=== PATIENT | male | born 1940 | race Caucasian/White ===

== ENCOUNTER 2021-10-23 08:56 | Outpatient (REF) | payer SELFPAY | END 2021-10-23 08:57 | disposition home or self-care (01) | LOC: HO.MMNH1L 08:56 | PROVIDERS: Visit Provider Family Medicine | DX: Z13.89 Encounter for screening for other disorder (principal) ==

== ENCOUNTER 2021-10-25 03:52 | Inpatient (IN) | payer MEDICARE, SELFPAY ==
[2021-10-25] VITALS (14 sets, daily range): BP systolic 115–145; BP diastolic 45–89; PULSE 60–110; RESP 20–34; TEMP 36.6; O2SAT 87–97; BMI 24.6
--- NOTE | ~2021-10-25 | XR_ITS ---
EXAMINATION: XR CHEST CLINICAL INFORMATION: Shortness of breath. COMPARISON: None TECHNIQUE: 2 AP frontal radiographs of the chest. FINDINGS: A right pectoral tunneled internal jugular catheter terminates at the cavoatrial junction. The cardiac silhouette is normal in size. Moderate aortic calcific atherosclerosis is noted. Moderate blunting of the right costophrenic sulcus is visualized along with right base airspace opacification partially obscuring visualization of the right cardiac margin. Bilateral dense pleural calcifications are present. No pneumothoraces identified. XR/XR chest 1V IMPRESSION: *Right pectoral tunneled internal jugular catheter terminating at the cavoatrial junction. *Small right pleural effusion and moderate right base atelectasis and/or consolidation. Findings could represent pneumonia. 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
--- NOTE | ~2021-10-25 | XR_ITS ---
EXAMINATION: XR CHEST CLINICAL INFORMATION: Short of breath COMPARISON: 10/30/2021 TECHNIQUE: Frontal view of the chest was obtained. FINDINGS: Right chest wall port terminates near the cavoatrial junction. The lungs are well expanded. Numerous calcified pleural plaques are again noted. Moderate right pleural effusion is similar to prior given differences in technique. Associated airspace opacity. No edema. No pneumothorax. The cardiomediastinal silhouette is unchanged, with a calcified aorta. XR/XR chest 1V IMPRESSION: Chronic bilateral calcified pleural plaques. Similar moderate right pleural effusion with airspace opacity which could be atelectasis or pneumonia.
--- NOTE | ~2021-10-25 | XR_ITS ---
EXAMINATION: XR CHEST CLINICAL INFORMATION: Evaluate pneumonia. COMPARISON: 10/31/2021. TECHNIQUE: AP view of the chest was obtained. FINDINGS: Unchanged prominence of the cardiomediastinal silhouette. Right-sided chest port terminates at the level of the cavoatrial junction. EKG wires overlie the chest. Redemonstration of bilateral calcified pleural plaques. Again noted moderate size right pleural effusion with associated right mid and lower lobe airspace opacities, not significantly changed. No pneumothorax. No discrete acute osseous abnormalities. XR/XR chest 1V IMPRESSION: Overall, examination has not significantly changed when compared to 10/31/2021 with redemonstration of a moderate-sized right pleural effusion with associated right lung opacities. Background of multifocal calcified pleural plaques.
--- NOTE | ~2021-10-25 | XR_ITS ---
EXAMINATION: XR CHEST CLINICAL INFORMATION: Follow-up, shortness of breath COMPARISON: 10/25/2021 TECHNIQUE: Frontal view of the chest was obtained. FINDINGS: Superimposed on multiple bilateral likely chronic calcified pleural plaques, there are worsening bilateral airspace opacities and increasing now moderate right pleural effusion. Pulmonary vascularity is increasingly prominent and indistinct. No pneumothorax seen. Right internal jugular approach chest port is seen with catheter tip in the cavoatrial junction. Cardiac silhouette remains enlarged. Degenerative changes of the shoulders and spine. Calcifications adjacent the right humeral head suggests calcific tendinitis. XR/XR chest 1V IMPRESSION: Worsening bilateral airspace opacities with increasing now moderate right pleural effusion with prominent, indistinct pulmonary vascularity. These findings could reflect worsening multifocal pneumonia although congestive heart failure could give a similar appearance. 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
--- NOTE | 2021-10-25 03:54 | ECG_ITS ---
Test Reason : SOB Blood Pressure : / mmHG Vent. Rate : 087 BPM Atrial Rate : 089 BPM P-R Int : 200 ms QRS Dur : 124 ms QT Int : 400 ms P-R-T Axes : 033 010 241 degrees QTc Int : 481 ms Poor data quality Undetermined rhythm with Premature ventricular complexes Nonspecific ST abnormality Abnormal ECG Referred By: Generic ED Physician Electronically Signed By:IRVIN PARIKH MD
[2021-10-25 04:17] LABS: Basophils Percent Auto 0.1 % (0-2); Eosinophils Percent Auto 0.1 % (0-4); Hematocrit 31.1 % (42.0-52.0); Imm Gran Abs Auto 0.19 X10*3/uL (0.00-0.03); Lymphocytes Absolute Auto 0.4 X10*3/uL (1.2-4.9); Lymphocytes Percent Auto 2.3 % (20-40); MANUAL DIFF FLAG SCAN; Mean Corpuscular HGB Conc 32.2 g/dl (31.0-36.0); Mean Corpuscular Hemoglobin 29.1 pg (27.0-33.0); Mean Corpuscular Volume 90.4 fL (80.0-98.0); Mean Platelet Volume 11.5 fL (9.4-12.4); Monocytes Percent Auto 4.9 % (2-11); Neutrophils Absolute Auto 17.6 x10*3/uL (2.0-8.3); Neutrophils Percent Auto 91.6 % (45-73); Platelet Count 112 X10*3/uL (160-400); Red Blood Count 3.44 X10*6/uL (4.60-5.80); Red Cell Distribution Width 14.2 % (11.0-16.0); SCAN SMEAR FLAG 1; White Blood Count 19.2 X10*3/uL (4.8-10.8)
[2021-10-25 04:27] LABS: Influenza A Negative (Negative); Influenza B2 Negative (Negative)
[2021-10-25 04:27] LABS: Lactic Acid 0.6 mmol/L (0.5-2.0)
[2021-10-25 04:28] LABS: COVID-19 Test Negative (Negative); IDNOW Serial# 55D5AD1C
[2021-10-25 04:37] LABS: SLIDE REVIEW VERIFIED
[2021-10-25 04:38] LABS: B Type Natriuretic Peptide 810 pg/mL (<100)
[2021-10-25 04:39] LABS: Troponin-I High Sensitivity 174.8 ng/L (<3.5-35.0)
[2021-10-25 04:40] LABS: Alanine Aminotransferase 77 U/L (0-40); Albumin Level 3.4 g/dL (3.5-5.0); Alkaline Phosphatase 252 U/L (39-117); Anion Gap 15 (12-20); Aspartate Amino Transferase 66 U/L (5-37); Bilirubin Direct 0.3 mg/dL (0.0-0.5); Bilirubin Total 0.6 mg/dL (0.0-1.0); Blood Urea Nitrogen 58 mg/dL (9-16); Calcium 8.1 mg/dL (8.4-10.2); Carbon Dioxide 28 mmol/L (22-29); Chloride 100 mmol/L (96-108); Creatinine Clr Calc Pharmacy 23.2; Estimated Glomerular Filt Rate 24; Glucose Random 123 mg/dL (60-115); Potassium 3.6 mmol/L (3.3-5.1); Sodium 139 mmol/L (135-145); Total Protein 6.2 g/dL (6.5-8.0)
--- NOTE | 2021-10-25 04:48 | PC.NURSE ---
Pt from [facility] Pt tolerating oxymask, 15 L. O2 at 91%
[2021-10-25] MEDS: Furosemide 40 MG/4 ML VIAL IVPUSH ×2 (04:58→18:51)
[2021-10-25] MEDS: Piperacillin Sodium/Tazobactam 4.5 GM in 0.9 % Sodium Chloride 100 ML IV (04:58)
--- NOTE | 2021-10-25 05:07 | ED_ITS ---
HPI - SOB/Dyspnea General Chief Complaint: Dyspnea Stated Complaint: difficulty breathing Time Seen by Provider: 10/25/21 04:03 Mode of arrival: EMS Limitations: other ( patient speaking in 1-2 word sentences secondary to shortness of breath) History of Present Illness HPI Narrative: 81-year-old man who was sent in from his [facility]dc facility for evaluation of shortness of breath. The patient is speaking in short sentences and it is difficult to get a history from him. According to the paramedics the staff at [facility] found the patient off his oxygen ( normally is on 3 L). The patient appeared to be short of breath. When the paramedics arrived the patient's O2 saturation was 60% on 3 L via nasal cannula. They placed him on a non-rebreather mask at 10 liters/minute and his O2 saturation came up to 88%. The patient has a history of COPD and cancer of the right bronchus/lung. On presentation to the emergency department, on 100% non-rebreather mask the patient's O2 saturation was 86%, he was placed on an OxyMask at 15 L and his O2 saturation came up to 90%. the patient is a DNR DNI, can use noninvasive respiratory support Related Data Allergies Allergy/AdvReac Type Severity Reaction Status Date / Time No Known Allergies Allergy Verified 10/25/21 04:04 Review of Systems Review of Systems: Yes Unobtainable due to mental status [facility] Past Medical History [facility] Narrative: past medical history: Obstructive and reflux uropathy, malignant neoplasm of the lung, systolic congestive heart failure, acute kidney failure, diabetes mellitus, COPD, urinary tract infection, hematuria, myocardial infarction, hypoxemia, dysphagia. Social history: Patient is a resident at [facility] Social History Social History Advance Directives: No Physical Exam Vital Signs: Vital Signs: Last Vital Signs Temp 98 F 10/25/21 03:55 Pulse 78 10/25/21 04:59 Resp 20 10/25/21 05:52 BP 125/45 L 10/25/21 04:59 Pulse Ox 91 L 10/25/21 04:59 O2 Del Method 10/25/21 04:59 O2 Flow Rate 15 10/25/21 04:59 Oxygen Flow Rate 10 10/25/21 03:55 BMI result Body Mass Index 24.6 Const: Other: awake, alert male patient, appears to be in respiratory distress, using accessory muscles to breathe HEENT: Head: Yes normal to inspection, Yes normocephalic and Yes atraumatic Ears: external ears normal General nose exam: Normal external nose present Face and sinus: Yes normal facial exam Mouth: Normal oral and palatal mucosa present Throat: Yes posterior oropharynx normal Eyes: General: appearance normal, both eyes and all related structures Pupils: Equal, round and reactive pupils present Neck: Neck: Yes normal visual inspection, Yes no lymphadenopathy, Yes trachea midline and Yes supple Chest: Chest palpation & inspection: normal inspection of the chest and normal palpation of entire chest wall Resp: Other: patient is using accessory muscles to breathe, breath sounds were symmetric b ilaterally, he has diffuse rhonchi, and rales, there is no wheezing. Cardio: Rate: regular rate Rhythm: regular rhythm Heart sounds: S1 normal heart sound present, S2 normal heart sound present and no murmurs GI: Inspection: Yes normal to inspection Palpation (GI): Soft to palpation, nontender and no guarding Auscultation: normal bowel sounds : General: Yes no CVA tenderness Back/Spine/Pelvis: Back: no CVA tenderness Skin: General skin exam: no rashes or lesions noted Neuro: Cranial nerves: Yes CN's II-XII intact bilaterally and Yes Equal, round and reactive pupils present Cognition (Neuro): normal cognition Motor exam (neuro): 5/5 motor strength present throughout Extrem: Other: Trace to 1+ pitting edema bilaterally symmetric Psych: Appearance: grossly normal Affect: normal affect Attitude: cooperative Course Course Course Narrative: 81-year-old male who was sent to the emergency department from his fdc facility for evaluation of shortness of breath and hypoxia. according to the paramedics, the patient normally is on 2-3 L of oxygen via nasal cannula and he was off his oxygen and had an O2 saturation 60%. Patient was placed on a 100% non-rebreather mask with improvement of his O2 saturation to 88%. On presentation, the patient did appear to be in respiratory distress and speaking 1-2 word sentences. Lung exam did reveal diffuse rhonchi and rales. The patient was placed initially on an OxyMask and then on high-flow oxygen with improvement his O2 saturation to 90%. 0558: Laboratory evaluation: WBC elevated 19,000. BUN creatinine elevated 54 and 2.57. BNP elevated 810. AST, ALT, and alk phos elevated at 66, 77 and 252. Troponin was elevated at 174.8. lactic acid was normal at 0.6. Radiology evaluation: Chest x-ray was interpreted as follows by the radiologist: *Right pectoral tunneled internal jugular catheter terminating at the cavoatrial junction. *Small right pleural effusion and moderate right base atelectasis and/or consolidation. Findings could represent pneumonia. 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 Patient was ordered to get Lasix 40 mg IV and Zosyn 4.5 g IV. Will repeat the patient's troponin at 07:00 hours. I will discuss the patient's presentation with the covering hospitalist. 0609: I did discuss the patient's presentation over tiger text with Dr. Rich and the patient will be admitted to the hospital service for further treatment. MDM - SOB/Dyspnea Lab Data Result diagrams: 10/25/21 04:07 10/25/21 04:07 Labs: Lab Results 10/25/21 10/25/21 10/25/21 Range/Units 04:06 04:06 04:07 WBC 19.2 H (4.8-10.8) X10*3/uL RBC 3.44 L (4.60-5.80) X10*6/uL Hgb 10.0 L (14.0-18.0) g/dl Hct 31.1 L (42.0-52.0) % MCV 90.4 (80.0-98.0) fL MCH 29.1 (27.0-33.0) pg MCHC 32.2 (31.0-36.0) g/dl RDW 14.2 (11.0-16.0) % Plt Count 112 L (160-400) X10*3/uL MPV 11.5 (9.4-12.4) fL Immature Gran % (Auto) 1.0 H (0.0-0.4) % Neut % (Auto) 91.6 H (45-73) % Lymph % (Auto) 2.3 L (20-40) % [place] % (Auto) 4.9 (2-11) % Eos % (Auto) 0.1 (0-4) % Baso % (Auto) 0.1 (0-2) % Lymph # (Auto) 0.4 L (1.2-4.9) X10*3/uL [place] # (Auto) 1.0 (0.1-1.2) X10*3/uL Eos # (Auto) 0.0 (0.0-0.4) X10*3/uL Baso # (Auto) 0.0 (0.0-0.2) X10*3/uL Abs Immat Gran (auto) 0.19 H (0.00-0.03) X10*3/uL Absolute Neuts (auto) 17.6 H (2.0-8.3) x10*3/uL Absolute Nucleated RBC 0.000 (0.0-0.012) X10*3/uL Nucleated RBC % (auto) 0.0 (0.0-0.2) /100WBC Smear Tech's Comments VERIFIED Sodium (135-145) mmol/L Potassium (3.3-5.1) mmol/L Chloride (96-108) mmol/L Carbon Dioxide (22-29) mmol/L Anion Gap (12-20) BUN (9-16) mg/dL Creatinine (0.5-1.4) mg/dL Estim Creat Clear Calc Estimated GFR Random Glucose (60-115) mg/dL Lactic Acid (0.5-2.0) mmol/L Calcium (8.4-10.2) mg/dL Total Bilirubin (0.0-1.0) mg/dL Direct Bilirubin (0.0-0.5) mg/dL AST (5-37) U/L ALT (0-40) U/L Alkaline Phosphatase (39-117) U/L Troponin I High Sens (<3.5-35.0) ng/L B-Natriuretic Peptide (<100) pg/mL Total Protein (6.5-8.0) g/dL Albumin (3.5-5.0) g/dL COVID-19 (BENEDICT) Negative (Negative) COVID-19 Clin Com See Note Influenza Type A (WENDY) Negative (Negative) Influenza Type B (WENDY) Negative (Negative) Influenza A & B Note See Note 10/25/21 10/25/21 10/25/21 Range/Units 04:07 04:07 04:07 WBC (4.8-10.8) X10*3/uL RBC (4.60-5.80) X10*6/uL Hgb (14.0-18.0) g/dl Hct (42.0-52.0) % MCV (80.0-98.0) fL MCH (27.0-33.0) pg MCHC (31.0-36.0) g/dl RDW (11.0-16.0) % Plt Count (160-400) X10*3/uL MPV (9.4-12.4) fL Immature Gran % (Auto) (0.0-0.4) % Neut % (Auto) (45-73) % Lymph % (Auto) (20-40) % [place] % (Auto) (2-11) % Eos % (Auto) (0-4) % Baso % (Auto) (0-2) % Lymph # (Auto) (1.2-4.9) X10*3/uL [place] # (Auto) (0.1-1.2) X10*3/uL Eos # (Auto) (0.0-0.4) X10*3/uL Baso # (Auto) (0.0-0.2) X10*3/uL Abs Immat Gran (auto) (0.00-0.03) X10*3/uL Absolute Neuts (auto) (2.0-8.3) x10*3/uL Absolute Nucleated RBC (0.0-0.012) X10*3/uL Nucleated RBC % (auto) (0.0-0.2) /100WBC Smear Tech's Comments Sodium 139 (135-145) mmol/L Potassium 3.6 (3.3-5.1) mmol/L Chloride 100 (96-108) mmol/L Carbon Dioxide 28 (22-29) mmol/L Anion Gap 15 (12-20) BUN 58 H (9-16) mg/dL Creatinine 2.57 H (0.5-1.4) mg/dL Estim Creat Clear Calc 23.2 Estimated GFR 24 Random Glucose 123 H (60-115) mg/dL Lactic Acid 0.6 (0.5-2.0) mmol/L Calcium 8.1 L (8.4-10.2) mg/dL Total Bilirubin 0.6 (0.0-1.0) mg/dL Direct Bilirubin 0.3 (0.0-0.5) mg/dL AST 66 H (5-37) U/L ALT 77 H (0-40) U/L Alkaline Phosphatase 252 H D (39-117) U/L Troponin I High Sens 174.8 H* (<3.5-35.0) ng/L B-Natriuretic Peptide 810 H (<100) pg/mL Total Protein 6.2 L (6.5-8.0) g/dL Albumin 3.4 L (3.5-5.0) g/dL COVID-19 (BENEDICT) (Negative) COVID-19 Clin Com Influenza Type A (WENDY) (Negative) Influenza Type B (WENDY) (Negative) Influenza A & B Note
[2021-10-25 07:36] LABS: Appearance Urine CLOUDY; Color Urine YELLOW; Glucose Urine UA NEG (NEG); Leukocyte Esterase Urine 3+ (NEG); Nitrite Urine POS (NEG); PH 5.5 (5.0-8.0); Specific Gravity - Urine 1.025 (1.005-1.025); UACC Culture Trigger YES; Urine Blood 3+ (NEG); Urine Ketones NEG (NEG); Urine Protein 2+ MG/DL (NEG-TRACE)
[2021-10-25 07:44] LABS: Troponin-I High Sensitivity 204.1 ng/L (<3.5-35.0)
[2021-10-25 07:55] LABS: Bacteria Urine 3+ /LPF; RBC Urine 30-49 /HPF (0)
[2021-10-25 07:56] LABS: Granular Casts Urine 0-2 /LPF; Hyaline Casts Urine 0-2 /LPF
--- NOTE | 2021-10-25 08:29 | PC.NURSE ---
PT PLACED ON CPAP
--- NOTE | 2021-10-25 09:00 | PHA.MEDREC ---
Pharmacy Consult ? Medication Reconciliation Pharmacy has completed the medication reconciliation. Patient came from [facility] with a medication list. Nicole Coyne, mDD
--- NOTE | 2021-10-25 10:34 | PC.NURSE ---
remains awake and alert. he continues on cpap now at 50%O2
--- NOTE | 2021-10-25 11:43 | PC.NURSE ---
patient sleeping, wakes to verbal stimulus, denied pain/discomfort, cpap intact , vss, groundwater monitoring technician intact, will continue to monitor
--- NOTE | 2021-10-25 12:44 | PM.IMHP ---
History of Present Illness Date of Service: 10/25/21 Chief Complaint: sob history limited due to patient's sob. 81M with pmh including chronic hypoxic respiratory failure on 3 L home O2 due to history of COPD and chronic systolic CHF as well as recent diagnosis of squamous cell lung cancer, presented with shortness of breath. Patient was residing at [facility] and was complaining of shortness of breath. Was found to be severely hypoxic on his 3 L home O2 by paramedics patient was tachypneic and saturating 60% he was placed on a non-rebreather and saturation improved to 88%. In ED chest x-ray showed bilateral pleural calcifications suspicious for asbestos exposure, small right pleural effusion and moderate right basilar atelectasis and/or consolidation. White blood cell count was elevated at 19. 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, stage I Urinary retention Family History Mother Breast cancer in situ Social History Alcohol intake: never Patient Tobacco Use Status: Former Tobacco user Use of substances other than those prescribed or required for medical reasons: No Advance Directives: No Meds Allergies Allergy/AdvReac Type Severity Reaction Status Date / Time No Known Allergies Allergy Verified 10/25/21 04:04 Active Medications: Current Medications Acetaminophen (Acetaminophen 325 Mg Tablet) 650 mg PO Q6H PRN PRN Reason: Pain, Mild (Pain Scale 1-3) Albuterol Sulfate (Albuterol Sulfate 90 Mcg 8 Gm Inhaler) 1 puff INHALE Q4H PRN PRN Reason: Wheezing Albuterol/Ipratropium (Albuterol/Iprat 2.5/0.5mg 3 Ml Ampul.Neb) 3 ml INHALE RQ4H PRN PRN Reason: sob Atorvastatin Calcium (Atorvastatin Calcium 10 Mg Tablet) 10 mg PO BEDTIME YIN Carvedilol (Carvedilol 6.25 Mg Tablet) 6.25 mg PO BID [facility]; Protocol Dextrose (Dextrose 50 % 25 Gm/50 Ml Syringe) 25 gm IVPUSH Q15M PRN; Protocol PRN Reason: per Hypoglycemia Standing Ord. Furosemide (Furosemide 40 Mg/4 Ml Vial) 40 mg IVPUSH BID@0900,1800 [facility]; Protocol Glucose (Glucose Gel 15 Gm Gel..Gram.) 15 gm PO Q15M PRN; Protocol PRN Reason: per Hypoglycemia Standing Ord. Heparin Sodium (Porcine) (Heparin Sodium,Porcine 5,000 Unit/Ml Vial) 5,000 unit SUBCUT Q8H [facility] Ceftriaxone Sodium 1 gm/ (Sodium Chloride) 50 mls @ 100 mls/hr IV Q24H [facility] Insulin Human Lispro (Insulin Lispro 100 Unit/Ml 3 Ml Vial) 0 unit SUBCUT QIDACHS [facility]; Protocol Melatonin (Melatonin 3 Mg Tablet) 6 mg PO BEDTIME [facility] Methylprednisolone Sodium Succinate (Methylprednisolone Sod Succ 40 Mg/Ml Vial) 40 mg IVPUSH Q12H [facility] Multivitamins/Vitamin C (Multivitamin Tablet) 1 tab PO DAILY [facility] Omeprazole (Omeprazole 20 Mg Capsule.Dr) 20 mg PO DAILY@0630 [facility] Ondansetron HCl (Ondansetron Odt 4 Mg Tab.Rapdis) 4 mg TRANSLINGU Q8H PRN PRN Reason: Nausea Sodium Chloride (0.9 % Sodium Chloride Flush 3 Ml Syringe) 3 ml IVFLUSH QSHIFT [facility] Tamsulosin HCl (Tamsulosin Hcl 0.4 Mg Capsule) 0.8 mg PO BEDTIME [facility] Home Medications Medication Instructions Recorded Confirmed Last Taken Type albuterol sulfate 90 mcg/actuation 1 puff inhalation Q4H PRN Wheezing 10/25/21 10/25/21 Unknown History aerosol inhaler amlodipine 5 mg tablet 1 tab PO DAILY 10/25/21 10/25/21 Unknown History carvedilol 6.25 mg tablet 1 tab PO BID 10/25/21 10/25/21 Unknown History clonidine HCl 0.1 mg tablet 1 tab PO DAILY 10/25/21 10/25/21 Unknown History furosemide 20 mg tablet 20 mg PO DAILY 10/25/21 10/25/21 Unknown History insulin lispro 100 unit/mL 1 sliding scale dose subcut 10/25/21 10/25/21 Unknown History subcutaneous solution (Humalog USEASDIRECTD U-100 Insulin) isosorbide mononitrate 30 mg 1 tab PO DAILY 10/25/21 10/25/21 Unknown History tablet,extended release 24 hr melatonin 3 mg tablet 6 mg PO BEDTIME 10/25/21 10/25/21 Unknown History multivitamin 1 tab PO DAILY 10/25/21 10/25/21 Unknown History omeprazole 20 mg tablet,delayed 20 mg PO DAILY 10/25/21 10/25/21 Unknown History release ondansetron HCl 4 mg tablet 4 mg PO Q8H PRN Nausea 10/25/21 10/25/21 Unknown History simvastatin 20 mg tablet 20 mg PO BEDTIME 10/25/21 10/25/21 Unknown History tamsulosin 0.4 mg capsule 0.8 mg PO BEDTIME 10/25/21 10/25/21 Unknown History Physical Exam Vital Signs and Narrative: Vital Signs: Last Vital Signs Temp 98 F 10/25/21 03:55 Pulse 60 10/25/21 11:41 Resp 25 H 10/25/21 11:41 BP 118/76 10/25/21 11:41 Pulse Ox 94 10/25/21 11:41 O2 Del Method 10/25/21 11:41 O2 Flow Rate 55 10/25/21 07:28 Oxygen Flow Rate 10 10/25/21 03:55 BMI result Body Mass Index 24.6 General: ill appearing, dyspneic HEENT: atraumatic Neck: normal to visual inspection CVS: S1, S2, RRR Resp: rhonchi bilateral Chest: non tender GI: soft, non tender, non distended : no CVA tenderness Skin: no rashes Extremities: no edema Neuro: grossly intact Psych: cooperative Results Labs CBC and Chem 7: 10/25/21 04:07 10/25/21 04:07 Labs: Laboratory Results - last 24 hr 10/25/21 10/25/21 10/25/21 04:06 04:06 04:07 MCV 90.4 MCH 29.1 MCHC 32.2 RDW 14.2 Plt Count 112 L MPV 11.5 Immature Gran % (Auto) 1.0 H Neut % (Auto) 91.6 H Lymph % (Auto) 2.3 L [place] % (Auto) 4.9 Eos % (Auto) 0.1 Baso % (Auto) 0.1 Lymph # (Auto) 0.4 L [place] # (Auto) 1.0 Eos # (Auto) 0.0 Baso # (Auto) 0.0 Abs Immat Gran (auto) 0.19 H Absolute Neuts (auto) 17.6 H Absolute Nucleated RBC 0.000 Nucleated RBC % (auto) 0.0 Smear Tech's Comments VERIFIED Anion Gap Estim Creat Clear Calc Estimated GFR Random Glucose Lactic Acid Calcium Total Bilirubin Direct Bilirubin AST ALT Alkaline Phosphatase Troponin I High Sens B-Natriuretic Peptide Total Protein Albumin Urine Color Urine Appearance Urine pH Ur Specific [place] Urine Protein Urine Glucose (UA) Urine Ketones Urine Blood Urine Nitrite Ur Leukocyte Esterase Urine RBC Urine WBC Ur Squamous Epith Cells Urine Bacteria Hyaline Casts Granular Casts COVID-19 (BENEDICT) Negative COVID-19 Clin Com See Note Influenza Type A (WENDY) Negative Influenza Type B (WENDY) Negative Influenza A & B Note See Note 10/25/21 10/25/21 10/25/21 04:07 04:07 04:07 MCV MCH MCHC RDW Plt Count MPV Immature Gran % (Auto) Neut % (Auto) Lymph % (Auto) [place] % (Auto) Eos % (Auto) Baso % (Auto) Lymph # (Auto) [place] # (Auto) Eos # (Auto) Baso # (Auto) Abs Immat Gran (auto) Absolute Neuts (auto) Absolute Nucleated RBC Nucleated RBC % (auto) Smear Tech's Comments Anion Gap 15 Estim Creat Clear Calc 23.2 Estimated GFR 24 Random Glucose 123 H Lactic Acid 0.6 Calcium 8.1 L Total Bilirubin 0.6 Direct Bilirubin 0.3 AST 66 H ALT 77 H Alkaline Phosphatase 252 H D Troponin I High Sens 174.8 H* B-Natriuretic Peptide 810 H Total Protein 6.2 L Albumin 3.4 L Urine Color Urine Appearance Urine pH Ur Specific [place] Urine Protein Urine Glucose (UA) Urine Ketones Urine Blood Urine Nitrite Ur Leukocyte Esterase Urine RBC Urine WBC Ur Squamous Epith Cells Urine Bacteria Hyaline Casts Granular Casts COVID-19 (BENEDICT) COVID-19 Clin Com Influenza Type A (WENDY) Influenza Type B (WENDY) Influenza A & B Note 10/25/21 10/25/21 07:04 07:31 MCV MCH MCHC RDW Plt Count MPV Immature Gran % (Auto) Neut % (Auto) Lymph % (Auto) [place] % (Auto) Eos % (Auto) Baso % (Auto) Lymph # (Auto) [place] # (Auto) Eos # (Auto) Baso # (Auto) Abs Immat Gran (auto) Absolute Neuts (auto) Absolute Nucleated RBC Nucleated RBC % (auto) Smear Tech's Comments Anion Gap Estim Creat Clear Calc Estimated GFR Random Glucose Lactic Acid Calcium Total Bilirubin Direct Bilirubin AST ALT Alkaline Phosphatase Troponin I High Sens 204.1 H* B-Natriuretic Peptide Total Protein Albumin Urine Color YELLOW Urine Appearance CLOUDY Urine pH 5.5 Ur Specific [place] 1.025 Urine Protein 2+ H Urine Glucose (UA) NEG Urine Ketones NEG Urine Blood 3+ H Urine Nitrite POS H Ur Leukocyte Esterase 3+ H Urine RBC 30-49 H Urine WBC 76-150 H Ur Squamous Epith Cells NONE Urine Bacteria 3+ Hyaline Casts 0-2 Granular Casts 0-2 COVID-19 (BENEDICT) COVID-19 Clin Com Influenza Type A (WENDY) Influenza Type B (WENDY) Influenza A & B Note Imaging Radiologist's Impressions: Impressions Chest X-Ray 10/25/21 04:19 IMPRESSION: *Right pectoral tunneled internal jugular catheter terminating at the cavoatrial junction. *Small right pleural effusion and moderate right base atelectasis and/or consolidation. Findings could represent pneumonia. 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 Assessment and Plan (1) Acute and chronic respiratory failure with hypoxia: Status: Acute Plan 81M presented with sob acute on chronic hypoxic respiratory failure multifactorial concern for acute bacterial postobstructive pneumonia rocephin wean o2 as tolerated copd with acute decompensation stereoids, bronchodilators acute on chronic systolic chf lasix, monitor electrolytes coreg dm insulin hld statin htn coreg urinary retention continue chronic metzger, flomax CKD III stable, monitor lung cancer outpatient follow up dvt prophylaxis - hep sq dnr/dni Patient is significantly hypoxic requiring high levels of oxygen, at high risk for further decompensation due to history of systolic CHF, COPD, diabetes, CKD 3, lung cancer, therefore expected require at least 2 midnights in the hospital. Quality Stroke Does the patient have a stroke diagnosis?: No VTE Prior VTE?: No VTE Risk Level:: Medical - moderate - high VTE Device Contraindication: Treatment Not Indicated VTE Drug Contraindication: N/A - Med Ordered
[2021-10-25] MEDS: cefTRIAXone sodium 1 GM in 0.9 % Sodium Chloride 50 ML IV (13:10)
[2021-10-25] MEDS: Heparin Sodium,Porcine 5,000 UNIT/ML VIAL 5000 UNIT SUBCUT ×2 (13:10→22:18)
[2021-10-25] MEDS: methylPREDNISolone Sod Succ 40 MG/ML VIAL IVPUSH (13:10)
--- NOTE | 2021-10-25 13:16 | PC.NURSE ---
pt medicated per order, groundwater monitoring technician sinus larry with pvcs, metzger cath patient/draining, cpap , call blankenship within reach, will continue to monitor
[2021-10-25] MEDS: 0.9 % Sodium Chloride Flush 3 ML SYRINGE IVFLUSH ×2 (16:21→23:52)
--- NOTE | 2021-10-25 16:21 | PC.NURSE ---
patient a&o, compliance monitor intact, nsr 80s, vss, pt was switched to oxymask at 15L, pt has no c/o pain or discomfort, call blankenship within reach, will continue to monitor.
[2021-10-25 18:38] LABS: Glucose, Whole Blood 116 mg/dL (60-115)
--- NOTE | 2021-10-25 18:57 | PC.NURSE ---
patient alert to baseline, clinical research monitor nsr 80s, patient attempting to eat dinner and when mask is taken down for him to take a bite the patient desats to mid 80s, a NS was put on in addition to the oxymask so patient could continue to get oxygen while taking bites of food, patients o2 sat is low 90s at this time. metzger cath continues to be patient draining, pt medicated per order will continue to monitor.
[2021-10-25 22:08] LABS: Glucose, Whole Blood 215 mg/dL (60-115)
[2021-10-25] MEDS: Melatonin 3 MG TABLET 6 MG PO (22:18)
[2021-10-25] MEDS: Atorvastatin Calcium 10 MG TABLET PO (22:18)
[2021-10-25] MEDS: Insulin Lispro 100 UNIT/ML 3 ML VIAL SUBCUT (22:18)
[2021-10-25] MEDS: carvediloL 6.25 MG TABLET PO (22:19)
[2021-10-25] MEDS: Tamsulosin HCL 0.4 MG CAPSULE 0.8 MG PO (22:19)
--- NOTE | 2021-10-25 22:20 | PC.NURSE ---
patient a&o, palliative nurse nsr w/ pvcs, pt continues to be on oxymask at 15L, pt denies pain and discomfort, metzger cath patient/draining, call blnakenship within reach, will continue to monitor.
[2021-10-26] VITALS (8 sets, daily range): BP systolic 125–153; BP diastolic 59–76; PULSE 58–74; RESP 12–24; TEMP 36.1–36.8; O2SAT 90–97; BMI 24.6
[2021-10-26] MEDS: methylPREDNISolone Sod Succ 40 MG/ML VIAL IVPUSH ×2 (00:08→12:21)
[2021-10-26] MEDS: Albuterol/Iprat 2.5/0.5MG 3 ML AMPUL.NEB INHALE (03:09)
[2021-10-26] MEDS: Omeprazole 20 MG CAPSULE.DR PO (05:48)
[2021-10-26] MEDS: Heparin Sodium,Porcine 5,000 UNIT/ML VIAL 5000 UNIT SUBCUT ×3 (05:49→21:56)
[2021-10-26 05:54] LABS: Hematocrit 33.2 % (42.0-52.0); Hemoglobin 10.5 g/dl (14.0-18.0); Mean Corpuscular HGB Conc 31.6 g/dl (31.0-36.0); Mean Corpuscular Hemoglobin 28.7 pg (27.0-33.0); Mean Corpuscular Volume 90.7 fL (80.0-98.0); Mean Platelet Volume 11.7 fL (9.4-12.4); Platelet Count 126 X10*3/uL (160-400); Red Blood Count 3.66 X10*6/uL (4.60-5.80); Red Cell Distribution Width 13.9 % (11.0-16.0); White Blood Count 14.5 X10*3/uL (4.8-10.8)
[2021-10-26 06:11] LABS: Anion Gap 16 (12-20); Blood Urea Nitrogen 67 mg/dL (9-16); Calcium 8.5 mg/dL (8.4-10.2); Carbon Dioxide 30 mmol/L (22-29); Chloride 100 mmol/L (96-108); Creatinine Clr Calc Pharmacy 21.9; Estimated Glomerular Filt Rate 23; Glucose Fasting 141 mg/dL (60-99); Potassium 4.2 mmol/L (3.3-5.1); Sodium 142 mmol/L (135-145)
[2021-10-26 07:53] LABS: Glucose, Whole Blood 217 mg/dL (60-115)
[2021-10-26] MEDS: Multivitamin TABLET 1 TAB PO (08:21)
[2021-10-26] MEDS: Insulin Lispro 100 UNIT/ML 3 ML VIAL SUBCUT ×3 (08:22→21:56)
[2021-10-26] MEDS: carvediloL 6.25 MG TABLET PO ×2 (08:22→21:56)
[2021-10-26] MEDS: 0.9 % Sodium Chloride Flush 3 ML SYRINGE IVFLUSH ×3 (08:22→22:05)
[2021-10-26] MEDS: Furosemide 40 MG/4 ML VIAL IVPUSH ×2 (08:23→18:23)
--- NOTE | 2021-10-26 10:22 | P.PNIM_ITS ---
Subjective Subjective Date of Service: 10/26/21 Interval History: cc: sob interval history:some improvement, still very sob Cardiovascular Cardiovascular: Reports no additional cardiovascular complaints Gastrointestinal Gastrointestinal: Reports no additional gastrointestinal complaints Physical Exam Vital Signs: Vital Signs: Last Vital Signs Temp 97.4 F 10/26/21 07:25 Pulse 70 10/26/21 07:25 Resp 12 10/26/21 07:25 BP 143/69 H 10/26/21 07:25 Pulse Ox 97 10/26/21 07:25 O2 Del Method High Flow Nasal C annula 10/26/21 07:25 O2 Flow Rate 15 10/26/21 07:25 Oxygen Flow Rate 10 10/25/21 03:55 BMI result Body Mass Index 24.6 General: AO X 3, dyspneic, ill appearing Resp: Crackles bilateral, no accessory muscles used CVS: S1,S2,RRR GI: soft, non tender, non distended Neuro: motor grossly intact, alert Psych: appropriate affect, appropriate insight Objective Data Active Medications Acetaminophen (Acetaminophen 325 Mg Tablet) 650 mg PO Q6H PRN PRN Reason: Pain, Mild (Pain Scale 1-3) Albuterol Sulfate (Albuterol Sulfate 90 Mcg 8 Gm Inhaler) 1 puff INHALE Q4H PRN PRN Reason: Wheezing Albuterol/Ipratropium (Albuterol/Iprat 2.5/0.5mg 3 Ml Ampul.Neb) 3 ml INHALE RQ4H PRN PRN Reason: sob Last Admin: 10/26/21 03:09 Dose: 3 ml Documented By: MEETA Atorvastatin Calcium (Atorvastatin Calcium 10 Mg Tablet) 10 mg PO BEDTIME [facility] Last Admin: 10/25/21 22:18 Dose: 10 mg Documented By: ANAID Carvedilol (Carvedilol 6.25 Mg Tablet) 6.25 mg PO BID [facility]; Protocol Last Admin: 10/26/21 08:22 Dose: 6.25 mg Documented By: JOE Dextrose (Dextrose 50 % 25 Gm/50 Ml Syringe) 25 gm IVPUSH Q15M PRN; Protocol PRN Reason: per Hypoglycemia Standing Ord. Furosemide (Furosemide 40 Mg/4 Ml Vial) 40 mg IVPUSH BID@0900,1800 [facility]; Protocol Last Admin: 10/26/21 08:23 Dose: 40 mg Documented By: JOE Glucose (Glucose Gel 15 Gm Gel..Gram.) 15 gm PO Q15M PRN; Protocol PRN Reason: per Hypoglycemia Standing Ord. Guaifenesin (Guaifenesin La 600 Mg Tab.Er.12h) 600 mg PO BID [facility] Heparin Sodium (Porcine) (Heparin Sodium,Porcine 5,000 Unit/Ml Vial) 5,000 unit SUBCUT Q8H [facility] Last Admin: 10/26/21 05:49 Dose: 5,000 unit Documented By: CECI Ceftriaxone Sodium 1 gm/ (Sodium Chloride) 50 mls @ 100 mls/hr IV Q24H [facility] Last Infusion: 10/25/21 13:40 Dose: 0 mls/hr Documented By: ANAID Insulin Human Lispro (Insulin Lispro 100 Unit/Ml 3 Ml Vial) 0 unit SUBCUT QIDACHS [facility]; Protocol Last Admin: 10/26/21 08:22 Dose: 4 unit Documented By: JOE Melatonin (Melatonin 3 Mg Tablet) 6 mg PO BEDTIME [facility] Last Admin: 10/25/21 22:18 Dose: 6 mg Documented By: ANAID Methylprednisolone Sodium Succinate (Methylprednisolone Sod Succ 40 Mg/Ml Vial) 40 mg IVPUSH Q12H [facility] Last Admin: 10/26/21 00:08 Dose: 40 mg Documented By: CECI Multivitamins/Vitamin C (Multivitamin Tablet) 1 tab PO DAILY [facility] Last Admin: 10/26/21 08:21 Dose: 1 tab Documented By: JOE Omeprazole (Omeprazole 20 Mg Capsule.) 20 mg PO DAILY@0630 [facility] Last Admin: 10/26/21 05:48 Dose: 20 mg Documented By: CECI Ondansetron HCl (Ondansetron Odt 4 Mg Tab.Rapdis) 4 mg TRANSLINGU Q8H PRN PRN Reason: Nausea Sodium Chloride (0.9 % Sodium Chloride Flush 3 Ml Syringe) 3 ml IVFLUSH QSHIFT [facility] Last Admin: 10/26/21 08:22 Dose: 3 ml Documented By: JOE Tamsulosin HCl (Tamsulosin Hcl 0.4 Mg Capsule) 0.8 mg PO BEDTIME [facility] Last Admin: 10/25/21 22:19 Dose: 0.8 mg Documented By: ANAID Labs CBC & Chem 7: 10/26/21 05:41 10/26/21 05:41 Labs: Laboratory Results - last 24 hr 10/25/21 10/25/21 10/26/21 18:31 22:04 05:41 MCV 90.7 MCH 28.7 MCHC 31.6 RDW 13.9 Plt Count 126 L MPV 11.7 Absolute Nucleated RBC 0.000 Nucleated RBC % (auto) 0.0 Anion Gap Estim Creat Clear Calc Estimated GFR POC Glucose 116 H 215 H Fasting Glucose Calcium 10/26/21 10/26/21 05:41 07:22 MCV MCH MCHC RDW Plt Count MPV Absolute Nucleated RBC Nucleated RBC % (auto) Anion Gap 16 Estim Creat Clear Calc 21.9 Estimated GFR 23 POC Glucose 217 H Fasting Glucose 141 H Calcium 8.5 Microbiology Microbiology Results: Microbiology 10/25/21 04:07 Blood Culture - Preliminary Blood - Venous No growth after 24 hours. 10/25/21 04:08 Blood Culture - Preliminary Blood - Venous No growth after 24 hours. Assessment and Plan (1) Acute and chronic respiratory failure with hypoxia: Status: Acute Plan 81M presented with sob acute on chronic hypoxic respiratory failure multifactorial, subjective improvement today concern for acute bacterial pneumonia continue rocephin wean o2 as tolerated copd with acute decompensation steroids, bronchodilators acute on chronic systolic chf contiue iv lasix, monitor electrolytes coreg dm insulin hld statin htn coreg urinary retention continue chronic metzger, flomax HALINA on CKD III creatinine 2.72 today, baseline around 2.2, monitoring closely on diuresis lung cancer outpatient follow up dvt prophylaxis - hep sq dnr/dni reason for continued hospitalization:ongoing hypoxia and iv diuresis Quality Stroke Does the patient have a stroke diagnosis?: No VTE Prior VTE?: No VTE Risk Level:: Medical - moderate - high VTE Device Contraindication: Treatment Not Indicated VTE Drug Contraindication: N/A - Med Ordered
[2021-10-26] MEDS: guaiFENesin LA 600 MG TAB.ER.12H PO ×2 (10:24→21:56)
[2021-10-26 11:57] LABS: Glucose, Whole Blood 210 mg/dL (60-115)
[2021-10-26] MEDS: cefTRIAXone sodium 1 GM in 0.9 % Sodium Chloride 50 ML IV (12:21)
[2021-10-26 15:17] LABS: Glucose, Whole Blood 87 mg/dL (60-115)
--- NOTE | 2021-10-26 15:45 | MHC.CM.PN ---
Met with patient to discuss dc planning. Delivered IMM. Luigi reports he lives alone in one story home with 3 steps to enter, has 2 daughters in the area who assist as needed. He states he was at [facility] recently and discharged to [facility] for STR 1 week ago. He wants to return there on dc to continue rehab. PCP Lourdes Flores. He states HCP is his daughter, Ashly. referral sent to [facility] and copy of HCP requested from [facility].
[2021-10-26 19:53] LABS: Glucose, Whole Blood 184 mg/dL (60-115)
[2021-10-26] MEDS: Melatonin 3 MG TABLET 6 MG PO (21:56)
[2021-10-26] MEDS: Tamsulosin HCL 0.4 MG CAPSULE 0.8 MG PO (21:56)
[2021-10-26] MEDS: Atorvastatin Calcium 10 MG TABLET PO (21:56)
[2021-10-27] VITALS (7 sets, daily range): BP systolic 124–164; BP diastolic 58–81; PULSE 68–88; RESP 17–23; TEMP 36.4–37.1; O2SAT 91–96
[2021-10-27] MEDS: methylPREDNISolone Sod Succ 40 MG/ML VIAL IVPUSH ×2 (02:30→14:25)
[2021-10-27] MEDS: Heparin Sodium,Porcine 5,000 UNIT/ML VIAL 5000 UNIT SUBCUT ×3 (05:37→21:47)
[2021-10-27] MEDS: Omeprazole 20 MG CAPSULE.DR PO (05:38)
[2021-10-27 06:48] LABS: Hematocrit 32.3 % (42.0-52.0); Hemoglobin 10.5 g/dl (14.0-18.0); Mean Corpuscular HGB Conc 32.5 g/dl (31.0-36.0); Mean Corpuscular Hemoglobin 29.2 pg (27.0-33.0); NRBC Pct Auto 0.1 /100WBC (0.0-0.2); Platelet Count 141 X10*3/uL (160-400); Red Blood Count 3.59 X10*6/uL (4.60-5.80); Red Cell Distribution Width 13.8 % (11.0-16.0); White Blood Count 14.9 X10*3/uL (4.8-10.8)
[2021-10-27 07:19] LABS: Anion Gap 17 (12-20); Blood Urea Nitrogen 87 mg/dL (9-16); Calcium 7.8 mg/dL (8.4-10.2); Carbon Dioxide 27 mmol/L (22-29); Chloride 100 mmol/L (96-108); Creatinine Clr Calc Pharmacy 20.8; Estimated Glomerular Filt Rate 21; Glucose Fasting 279 mg/dL (60-99); Magnesium 1.2 mg/dL (1.6-2.6); Potassium 3.1 mmol/L (3.3-5.1); Sodium 141 mmol/L (135-145)
[2021-10-27 08:19] LABS: Glucose, Whole Blood 243 mg/dL (60-115)
[2021-10-27] MEDS: 0.9 % Sodium Chloride Flush 3 ML SYRINGE IVFLUSH ×3 (08:24→21:47)
[2021-10-27] MEDS: Insulin Lispro 100 UNIT/ML 3 ML VIAL SUBCUT ×2 (08:24→21:46)
[2021-10-27] MEDS: carvediloL 6.25 MG TABLET PO ×2 (08:25→21:46)
[2021-10-27] MEDS: Multivitamin TABLET 1 TAB PO (08:25)
[2021-10-27] MEDS: guaiFENesin LA 600 MG TAB.ER.12H PO ×2 (08:25→21:46)
[2021-10-27] MEDS: Potassium Chloride ER 20 MEQ TAB.ER.PRT 40 MEQ PO (08:26)
[2021-10-27] MEDS: Magnesium Sulfate/H2O 2 GM/50 ML PIGGYBACK IV (08:26)
[2021-10-27] MEDS: Magnesium Oxide 400 MG TABLET 800 MG PO ×2 (08:27→17:01)
[2021-10-27 11:21] LABS: Glucose, Whole Blood 146 mg/dL (60-115)
[2021-10-27] MEDS: cefTRIAXone sodium 1 GM in 0.9 % Sodium Chloride 50 ML IV (14:26)
[2021-10-27 15:57] LABS: Glucose, Whole Blood 150 mg/dL (60-115)
[2021-10-27 20:01] LABS: Glucose, Whole Blood 213 mg/dL (60-115)
[2021-10-27] MEDS: Melatonin 3 MG TABLET 6 MG PO (21:46)
[2021-10-27] MEDS: Atorvastatin Calcium 10 MG TABLET PO (21:46)
[2021-10-27] MEDS: Tamsulosin HCL 0.4 MG CAPSULE 0.8 MG PO (21:46)
[2021-10-28] VITALS (7 sets, daily range): BP systolic 132–162; BP diastolic 69–88; PULSE 62–98; RESP 18–22; TEMP 36.4–36.7; O2SAT 90–97
[2021-10-28] MEDS: methylPREDNISolone Sod Succ 40 MG/ML VIAL IVPUSH ×2 (00:46→14:17)
[2021-10-28] MEDS: Heparin Sodium,Porcine 5,000 UNIT/ML VIAL 5000 UNIT SUBCUT ×3 (04:39→20:17)
[2021-10-28] MEDS: Albuterol/Iprat 2.5/0.5MG 3 ML AMPUL.NEB INHALE ×2 (04:39→17:46)
[2021-10-28] MEDS: Omeprazole 20 MG CAPSULE.DR PO (06:01)
--- NOTE | 2021-10-28 07:27 | P.PNIM_ITS ---
Subjective Subjective Date of Service: 10/27/21 Interval History: cc: sob interval history:some improvement, still very sob Cardiovascular Cardiovascular: Reports no additional cardiovascular complaints Gastrointestinal Gastrointestinal: Reports no additional gastrointestinal complaints Physical Exam Vital Signs: Vital Signs: Last Vital Signs Temp 97.5 F 10/28/21 03:08 Pulse 70 10/28/21 03:08 Resp 18 10/28/21 03:08 BP 149/69 H 10/28/21 03:08 Pulse Ox 93 10/28/21 03:08 O2 Del Method 10/28/21 03:08 O2 Flow Rate 5 10/28/21 03:08 Oxygen Flow Rate 10 10/25/21 03:55 BMI result Body Mass Index 24.6 General: AO X 3, dyspneic, ill appearing Resp: Crackles bilateral, no accessory muscles used CVS: S1,S2,RRR GI: soft, non tender, non distended Neuro: motor grossly intact, alert Psych: appropriate affect, appropriate insight Objective Data Active Medications Acetaminophen (Acetaminophen 325 Mg Tablet) 650 mg PO Q6H PRN PRN Reason: Pain, Mild (Pain Scale 1-3) Albuterol Sulfate (Albuterol Sulfate 90 Mcg 8 Gm Inhaler) 1 puff INHALE Q4H PRN PRN Reason: Wheezing Albuterol/Ipratropium (Albuterol/Iprat 2.5/0.5mg 3 Ml Ampul.Neb) 3 ml INHALE RQ4H PRN PRN Reason: sob Last Admin: 10/28/21 04:39 Dose: 3 ml Documented By: DOMINGO Atorvastatin Calcium (Atorvastatin Calcium 10 Mg Tablet) 10 mg PO BEDTIME [facility] Last Admin: 10/27/21 21:46 Dose: 10 mg Documented By: DOMINGO Carvedilol (Carvedilol 6.25 Mg Tablet) 6.25 mg PO BID [facility]; Protocol Last Admin: 10/27/21 21:46 Dose: 6.25 mg Documented By: DOMINGO Dextrose (Dextrose 50 % 25 Gm/50 Ml Syringe) 25 gm IVPUSH Q15M PRN; Protocol PRN Reason: per Hypoglycemia Standing Ord. Glucose (Glucose Gel 15 Gm Gel..Gram.) 15 gm PO Q15M PRN; Protocol PRN Reason: per Hypoglycemia Standing Ord. Guaifenesin (Guaifenesin La 600 Mg Tab.Er.12h) 600 mg PO BID [facility] Last Admin: 10/27/21 21:46 Dose: 600 mg Documented By: DOMINGO Heparin Sodium (Porcine) (Heparin Sodium,Porcine 5,000 Unit/Ml Vial) 5,000 unit SUBCUT Q8H [facility] Last Admin: 10/28/21 04:39 Dose: 5,000 unit Documented By: DOMINGO Ceftriaxone Sodium 1 gm/ (Sodium Chloride) 50 mls @ 100 mls/hr IV Q24H [facility] Last Infusion: 10/27/21 15:05 Dose: 0 mls/hr Documented By: HUMZA Insulin Human Lispro (Insulin Lispro 100 Unit/Ml 3 Ml Vial) 0 unit SUBCUT Q IDACHS [facility]; Protocol Last Admin: 10/27/21 21:46 Dose: 4 unit Documented By: DOMINGO Magnesium Oxide (Magnesium Oxide 400 Mg Tablet) 800 mg PO BIDPC [facility] Last Admin: 10/27/21 17:01 Dose: 800 mg Documented By: HUMZA Melatonin (Melatonin 3 Mg Tablet) 6 mg PO BEDTIME [facility] Last Admin: 10/27/21 21:46 Dose: 6 mg Documented By: DOMINGO Methylprednisolone Sodium Succinate (Methylprednisolone Sod Succ 40 Mg/Ml Vial) 40 mg IVPUSH Q12H [facility] Last Admin: 10/28/21 00:46 Dose: 40 mg Documented By: DOMINGO Multivitamins/Vitamin C (Multivitamin Tablet) 1 tab PO DAILY [facility] Last Admin: 10/27/21 08:25 Dose: 1 tab Documented By: IVANORRNell Omeprazole (Omeprazole 20 Mg Capsule.) 20 mg PO DAILY@0630 [facility] Last Admin: 10/28/21 06:01 Dose: 20 mg Documented By: DOMINGO Ondansetron HCl (Ondansetron Odt 4 Mg Tab.Rapdis) 4 mg TRANSLINGU Q8H PRN PRN Reason: Nausea Sodium Chloride (0.9 % Sodium Chloride Flush 3 Ml Syringe) 3 ml IVFLUSH QSHIFT [facility] Last Admin: 10/27/21 21:47 Dose: 3 ml Documented By: DOMINGO Tamsulosin HCl (Tamsulosin Hcl 0.4 Mg Capsule) 0.8 mg PO BEDTIME [facility] Last Admin: 10/27/21 21:46 Dose: 0.8 mg Documented By: DOMINGO Labs CBC & Chem 7: 10/27/21 06:29 10/27/21 06:29 Labs: Laboratory Results - last 24 hr 10/27/21 10/27/21 10/27/21 08:16 11:09 15:39 POC Glucose 243 H 146 H 150 H 10/27/21 19:23 POC Glucose 213 H Microbiology Microbiology Results: Microbiology 10/25/21 Unknown Urine Culture - Preliminary Urine clean catch - Urine knowles top Gram negative raquel 10/25/21 04:07 Blood Culture - Preliminary Blood - Venous No growth after 48 hours. 10/25/21 04:08 Blood Culture - Preliminary Blood - Venous No growth after 48 hours. Assessment and Plan (1) Acute and chronic respiratory failure with hypoxia: Status: Acute Plan 81M presented with sob acute on chronic hypoxic respiratory failure multifactorial, subjective improvement today concern for acute bacterial pneumonia continue rocephin wean o2 as tolerated copd with acute decompensation steroids, bronchodilators acute on chronic systolic chf contiue iv lasix, monitor electrolytes coreg hypokalemia, hypomagnesemia replace and monitor dm insulin hld statin htn coreg urinary retention continue chronic metzger, flomax HALINA on CKD III monitor closely lung cancer outpatient follow up dvt prophylaxis - hep sq dnr/dni reason for continued hospitalization:ongoing hypoxia and iv diuresis Quality Stroke Does the patient have a stroke diagnosis?: No VTE Prior VTE?: No VTE Risk Level:: Medical - moderate - high VTE Device Contraindication: Treatment Not Indicated VTE Drug Contraindication: N/A - Med Ordered
[2021-10-28 07:57] LABS: Glucose, Whole Blood 185 mg/dL (60-115)
[2021-10-28] MEDS: Insulin Lispro 100 UNIT/ML 3 ML VIAL SUBCUT ×3 (08:49→20:18)
[2021-10-28] MEDS: 0.9 % Sodium Chloride Flush 3 ML SYRINGE IVFLUSH ×2 (08:49→20:19)
[2021-10-28] MEDS: Multivitamin TABLET 1 TAB PO (08:50)
[2021-10-28] MEDS: carvediloL 6.25 MG TABLET PO ×2 (08:50→20:18)
[2021-10-28] MEDS: guaiFENesin LA 600 MG TAB.ER.12H PO ×2 (08:50→20:18)
[2021-10-28] MEDS: Magnesium Oxide 400 MG TABLET 800 MG PO ×2 (08:50→18:20)
[2021-10-28 09:18] LABS: Anion Gap 16 (12-20); Blood Urea Nitrogen 102 mg/dL (9-16); Calcium 8.3 mg/dL (8.4-10.2); Carbon Dioxide 29 mmol/L (22-29); Chloride 103 mmol/L (96-108); Creatinine Clr Calc Pharmacy 21.5; Estimated Glomerular Filt Rate 22; Glucose Random 186 mg/dL (60-115); Magnesium 1.5 mg/dL (1.6-2.6); Potassium 3.7 mmol/L (3.3-5.1); Sodium 144 mmol/L (135-145)
--- NOTE | 2021-10-28 11:14 | P.PNIM_ITS ---
Subjective Subjective Date of Service: 10/28/21 Interval History: cc: sob interval history:some improvement, still sob Cardiovascular Cardiovascular: Reports no additional cardiovascular complaints Gastrointestinal Gastrointestinal: Reports no additional gastrointestinal complaints Physical Exam Vital Signs: Vital Signs: Last Vital Signs Temp 97.9 F 10/28/21 07:31 Pulse 81 10/28/21 07:31 Resp 20 10/28/21 07:31 BP 156/71 H 10/28/21 07:31 Pulse Ox 94 10/28/21 07:31 O2 Del Method 10/28/21 07:31 O2 Flow Rate 5 10/28/21 07:31 Oxygen Flow Rate 10 10/25/21 03:55 BMI result Body Mass Index 24.6 General: AO X 3, weak appearing Resp: Crackles bilateral, no accessory muscles used CVS: S1,S2,RRR GI: soft, non tender, non distended Neuro: motor grossly intact, alert Psych: appropriate affect, appropriate insight Objective Data Active Medications Acetaminophen (Acetaminophen 325 Mg Tablet) 650 mg PO Q6H PRN PRN Reason: Pain, Mild (Pain Scale 1-3) Albuterol Sulfate (Albuterol Sulfate 90 Mcg 8 Gm Inhaler) 1 puff INHALE Q4H PRN PRN Reason: Wheezing Albuterol/Ipratropium (Albuterol/Iprat 2.5/0.5mg 3 Ml Ampul.Neb) 3 ml INHALE RQ4H PRN PRN Reason: sob Last Admin: 10/28/21 04:39 Dose: 3 ml Documented By: DOMINGO Atorvastatin Calcium (Atorvastatin Calcium 10 Mg Tablet) 10 mg PO BEDTIME [facility] Last Admin: 10/27/21 21:46 Dose: 10 mg Documented By: DOMINGO Carvedilol (Carvedilol 6.25 Mg Tablet) 6.25 mg PO BID [facility]; Protocol Last Admin: 10/28/21 08:50 Dose: 6.25 mg Documented By: RACHEL Dextrose (Dextrose 50 % 25 Gm/50 Ml Syringe) 25 gm IVPUSH Q15M PRN; Protocol PRN Reason: per Hypoglycemia Standing Ord. Glucose (Glucose Gel 15 Gm Gel..Gram.) 15 gm PO Q15M PRN; Protocol PRN Reason: per Hypoglycemia Standing Ord. Guaifenesin (Guaifenesin La 600 Mg Tab.Er.12h) 600 mg PO BID [facility] Last Admin: 10/28/21 08:50 Dose: 600 mg Documented By: RACHEL Heparin Sodium (Porcine) (Heparin Sodium,Porcine 5,000 Unit/Ml Vial) 5,000 unit SUBCUT Q8H [facility] Last Admin: 10/28/21 04:39 Dose: 5,000 unit Documented By: DOMINGO Cefepime HCl 1 gm/ Sodium (Chloride) 50 mls @ 100 mls/hr IV Q8H [facility] Insulin Human Lispro (Insulin Lispro 100 Unit/Ml 3 Ml Vial) 0 unit SUBCUT QIDACHS [facility]; Protocol Last Admin: 10/28/21 08:49 Dose: 2 unit Documented By: RACHEL Magnesium Oxide (Magnesium Oxide 400 Mg Tablet) 800 mg PO BIDPC [facility] Last Admin: 10/28/21 08:50 Dose: 800 mg Documented By: RACHEL Melatonin (Melatonin 3 Mg Tablet) 6 mg PO BEDTIME [facility] Last Admin: 10/27/21 21:46 Dose: 6 mg Documented By: DOMINGO Methylprednisolone Sodium Succinate (Methylprednisolone Sod Succ 40 Mg/Ml Vial) 40 mg IVPUSH Q12H [facility] Last Admin: 10/28/21 00:46 Dose: 40 mg Documented By: DOMINGO Multivitamins/Vitamin C (Multivitamin Tablet) 1 tab PO DAILY [facility] Last Admin: 10/28/21 08:50 Dose: 1 tab Documented By: RACHEL Omeprazole (Omeprazole 20 Mg Capsule.Dr) 20 mg PO DAILY@0630 [facility] Last Admin: 10/28/21 06:01 Dose: 20 mg Documented By: DOMINGO Ondansetron HCl (Ondansetron Odt 4 Mg Tab.Rapdis) 4 mg TRANSLINGU Q8H PRN PRN Reason: Nausea Sodium Chloride (0.9 % Sodium Chloride Flush 3 Ml Syringe) 3 ml IVFLUSH QSHIFT [facility] Last Admin: 10/28/21 08:49 Dose: 3 ml Documented By: RACHEL Tamsulosin HCl (Tamsulosin Hcl 0.4 Mg Capsule) 0.8 mg PO BEDTIME [facility] Last Admin: 10/27/21 21:46 Dose: 0.8 mg Documented By: DOMINGO Labs CBC & Chem 7: 10/27/21 06:29 10/28/21 08:26 Labs: Laboratory Results - last 24 hr 10/27/21 10/27/21 10/27/21 11:09 15:39 19:23 Anion Gap Estim Creat Clear Calc Estimated GFR POC Glucose 146 H 150 H 213 H Random Glucose Calcium Magnesium 10/28/21 10/28/21 07:33 08:26 Anion Gap 16 Estim Creat Clear Calc 21.5 Estimated GFR 22 POC Glucose 185 H Random Glucose 186 H D Calcium 8.3 L D Magnesium 1.5 L Microbiology Microbiology Results: Microbiology 10/25/21 Unknown Urine Culture - Final Urine clean catch - Urine knowles top Pseudomonas aeruginosa Assessment and Plan (1) Acute and chronic respiratory failure with hypoxia: Status: Acute Plan 81M presented with sob acute on chronic hypoxic respiratory failure multifactorial, continues to improve, now down to 5L, baseline is 3L concern for acute bacterial pneumonia will change to cefepime wean o2 as tolerated copd with acute decompensation steroids, bronchodilators acute on chronic systolic chf diuresed well, will change back to po lasix 20mg daily coreg pseudomonas bacturia in chronic metzger possible UTI, patient unreliable with symptoms, will change rocephin to cefepime hypokalemia, hypomagnesemia replaced,monitor dm insulin hld statin htn coreg urinary retention continue chronic metzger, flomax HALINA on CKD III monitor closely lung cancer outpatient follow up dvt prophylaxis - hep sq dnr/dni reason for continued hospitalization:ongoing hypoxia, not yet at baseline Quality Stroke Does the patient have a stroke diagnosis?: No VTE Prior VTE?: No VTE Risk Level:: Medical - moderate - high VTE Device Contraindication: Treatment Not Indicated VTE Drug Contraindication: N/A - Med Ordered
[2021-10-28 11:54] LABS: Glucose, Whole Blood 178 mg/dL (60-115)
[2021-10-28] MEDS: cefEPime HCl 1 GM in 0.9 % Sodium Chloride 50 ML IV ×2 (12:03→20:17)
[2021-10-28 16:04] LABS: Glucose, Whole Blood 145 mg/dL (60-115)
[2021-10-28 19:47] LABS: Glucose, Whole Blood 242 mg/dL (60-115)
[2021-10-28] MEDS: Melatonin 3 MG TABLET 6 MG PO (20:17)
[2021-10-28] MEDS: Tamsulosin HCL 0.4 MG CAPSULE 0.8 MG PO (20:18)
[2021-10-28] MEDS: Atorvastatin Calcium 10 MG TABLET PO (20:25)
[2021-10-29] MEDS: methylPREDNISolone Sod Succ 40 MG/ML VIAL IVPUSH ×2 (01:08→12:16)
[2021-10-29 03:11] VITALS: BP 165/81; PULSE 75; RESP 18; TEMP 36.7; O2SAT 93
[2021-10-29] MEDS: cefEPime HCl 1 GM in 0.9 % Sodium Chloride 50 ML IV ×3 (03:23→20:56)
[2021-10-29] MEDS: Heparin Sodium,Porcine 5,000 UNIT/ML VIAL 5000 UNIT SUBCUT ×3 (03:24→20:56)
[2021-10-29] MEDS: Omeprazole 20 MG CAPSULE.DR PO (05:08)
[2021-10-29 07:11] LABS: Hematocrit 32.7 % (42.0-52.0); Hemoglobin 10.4 g/dl (14.0-18.0); Mean Corpuscular HGB Conc 31.8 g/dl (31.0-36.0); Mean Corpuscular Hemoglobin 28.9 pg (27.0-33.0); Mean Corpuscular Volume 90.8 fL (80.0-98.0); Mean Platelet Volume 11.9 fL (9.4-12.4); Platelet Count 156 X10*3/uL (160-400); Red Cell Distribution Width 13.8 % (11.0-16.0); White Blood Count 15.5 X10*3/uL (4.8-10.8)
[2021-10-29 07:26] LABS: Glucose, Whole Blood 126 mg/dL (60-115)
[2021-10-29 07:36] VITALS: BP 160/80; PULSE 70; RESP 18; TEMP 36.4; O2SAT 93
[2021-10-29 07:41] LABS: Anion Gap 15 (12-20); Blood Urea Nitrogen 103 mg/dL (9-16); Calcium 8.6 mg/dL (8.4-10.2); Carbon Dioxide 32 mmol/L (22-29); Chloride 105 mmol/L (96-108); Creatinine Clr Calc Pharmacy 23.6; Estimated Glomerular Filt Rate 25; Glucose Fasting 145 mg/dL (60-99); Sodium 148 mmol/L (135-145)
[2021-10-29] MEDS: 0.9 % Sodium Chloride Flush 3 ML SYRINGE IVFLUSH ×3 (09:00→20:56)
[2021-10-29] MEDS: guaiFENesin LA 600 MG TAB.ER.12H PO ×2 (09:01→20:56)
[2021-10-29] MEDS: Multivitamin TABLET 1 TAB PO (09:01)
[2021-10-29] MEDS: Magnesium Oxide 400 MG TABLET 800 MG PO ×2 (09:01→16:50)
[2021-10-29] MEDS: Furosemide 20 MG TABLET PO (09:01)
[2021-10-29] MEDS: carvediloL 6.25 MG TABLET PO ×2 (09:01→20:55)
[2021-10-29] MEDS: Dextrose 5 % 1,000 ML 80 ML IVCONT (09:01)
[2021-10-29 11:19] VITALS: BP 167/70; PULSE 64; RESP 18; TEMP 36.9; O2SAT 90
[2021-10-29 11:33] LABS: Glucose, Whole Blood 164 mg/dL (60-115)
[2021-10-29] MEDS: Insulin Lispro 100 UNIT/ML 3 ML VIAL SUBCUT ×2 (12:16→16:49)
--- NOTE | 2021-10-29 13:03 | HO.PM.IMPN ---
Subjective Subjective Date of Service: 10/29/21 Interval History: cc: sob interval history:some improvement, still sob Cardiovascular Cardiovascular: Reports no additional cardiovascular complaints Gastrointestinal Gastrointestinal: Reports no additional gastrointestinal complaints Physical Exam Vital Signs: Vital Signs: Last Vital Signs Temp 98.5 F 10/29/21 11:19 Pulse 64 10/29/21 11:19 Resp 18 10/29/21 11:19 BP 167/70 H 10/29/21 11:19 Pulse Ox 90 L 10/29/21 11:19 O2 Del Method 10/29/21 11:19 O2 Flow Rate 5 10/29/21 11:19 Oxygen Flow Rate 10 10/25/21 03:55 BMI result Body Mass Index 24.6 General: AO X 3, weak appearing Resp: Crackles bilateral, no accessory muscles used CVS: S1,S2,RRR GI: soft, non tender, non distended Neuro: motor grossly intact, alert Psych: appropriate affect, appropriate insight Objective Data Active Medications Acetaminophen (Acetaminophen 325 Mg Tablet) 650 mg PO Q6H PRN PRN Reason: Pain, Mild (Pain Scale 1-3) Albuterol Sulfate (Albuterol Sulfate 90 Mcg 8 Gm Inhaler) 1 puff INHALE Q4H PRN PRN Reason: Wheezing Albuterol/Ipratropium (Albuterol/Iprat 2.5/0.5mg 3 Ml Ampul.Neb) 3 ml INHALE RQ4H PRN PRN Reason: sob Last Admin: 10/28/21 17:46 Dose: 3 ml Documented By: ASHLEIGH Atorvastatin Calcium (Atorvastatin Calcium 10 Mg Tablet) 10 mg PO BEDTIME [facility] Last Admin: 10/28/21 20:25 Dose: 10 mg Documented By: ALFREDO Carvedilol (Carvedilol 6.25 Mg Tablet) 6.25 mg PO BID [facility]; Protocol Last Admin: 10/29/21 09:01 Dose: 6.25 mg Documented By: RACHEL Dextrose (Dextrose 50 % 25 Gm/50 Ml Syringe) 25 gm IVPUSH Q15M PRN; Protocol PRN Reason: per Hypoglycemia Standing Ord. Furosemide (Furosemide 20 Mg Tablet) 20 mg PO DAILY [facility]; Protocol Last Admin: 10/29/21 09:01 Dose: 20 mg Documented By: RACHEL Glucose (Glucose Gel 15 Gm Gel..Gram.) 15 gm PO Q15M PRN; Protocol PRN Reason: per Hypoglycemia Standing Ord. Guaifenesin (Guaifenesin La 600 Mg Tab.Er.12h) 600 mg PO BID [facility] Last Admin: 10/29/21 09:01 Dose: 600 mg Documented By: RACHEL Heparin Sodium (Porcine) (Heparin Sodium,Porcine 5,000 Unit/Ml Vial) 5,000 unit SUBCUT Q8H [facility] Last Admin: 10/29/21 12:16 Dose: 5,000 unit Documented By: RACHEL Cefepime HCl 1 gm/ Sodium (Chloride) 50 mls @ 100 mls/hr IV Q8H [facility] Last Infusion: 10/29/21 04:03 Dose: 0 mls/hr Documented By: ALFREDO Dextrose (D5w) 1,000 mls @ 80 mls/hr IVCONT .[id number] [facility] Last Infusion: 10/29/21 12:29 Dose: 0 mls/hr Documented By: EDWIGE Insulin Human Lispro (Insulin Lispro 100 Unit/Ml 3 Ml Vial) 0 unit SUBCUT QIDACHS [facility]; Protocol Last Admin: 10/29/21 12:16 Dose: 2 unit Documented By: RACHEL Magnesium Oxide (Magnesium Oxide 400 Mg Tablet) 800 mg PO BIDPC [facility] Last Admin: 10/29/21 09:01 Dose: 800 mg Documented By: RACHEL Melatonin (Melatonin 3 Mg Tablet) 6 mg PO BEDTIME [facility] Last Admin: 10/28/21 20:17 Dose: 6 mg Documented By: ALFREDO Methylprednisolone Sodium Succinate (Methylprednisolone Sod Succ 40 Mg/Ml Vial) 40 mg IVPUSH Q12H [facility] Last Admin: 10/29/21 12:16 Dose: 40 mg Documented By: RACHEL Multivitamins/Vitamin C (Multivitamin Tablet) 1 tab PO DAILY [facility] Last Admin: 10/29/21 09:01 Dose: 1 tab Documented By: RACHEL Omeprazole (Omeprazole 20 Mg Capsule.Dr) 20 mg PO DAILY@0630 [facility] Last Admin: 10/29/21 05:08 Dose: 20 mg Documented By: ALFREDO Ondansetron HCl (Ondansetron Odt 4 Mg Tab.Rapdis) 4 mg TRANSLINGU Q8H PRN PRN Reason: Nausea Sodium Chloride (0.9 % Sodium Chloride Flush 3 Ml Syringe) 3 ml IVFLUSH QSHIFT [facility] Last Admin: 10/29/21 09:00 Dose: 3 ml Documented By: RACHEL Tamsulosin HCl (Tamsulosin Hcl 0.4 Mg Capsule) 0.8 mg PO BEDTIME [facility] Last Admin: 10/28/21 20:18 Dose: 0.8 mg Documented By: ALFREDO Labs CBC & Chem 7: 10/29/21 05:53 10/29/21 05:53 Labs: Laboratory Results - last 24 hr 10/28/21 10/28/21 10/29/21 16:00 19:43 05:53 MCV 90.8 MCH 28.9 MCHC 31.8 RDW 13.8 Plt Count 156 L MPV 11.9 Absolute Nucleated RBC 0.000 Nucleated RBC % (auto) 0.0 Anion Gap Estim Creat Clear Calc Estimated GFR POC Glucose 145 H 242 H Fasting Glucose Calcium 10/29/21 10/29/21 10/29/21 05:53 07:15 11:16 MCV MCH MCHC RDW Plt Count MPV Absolute Nucleated RBC Nucleated RBC % (auto) Anion Gap 15 Estim Creat Clear Calc 23.6 Estimated GFR 25 POC Glucose 126 H 164 H Fasting Glucose 145 H D Calcium 8.6 Microbiology Microbiology Results: Microbiology 10/25/21 Unknown Urine Culture - Final Urine clean catch - Urine knowles top Pseudomonas aeruginosa Assessment and Plan (1) Acute and chronic respiratory failure with hypoxia: Status: Acute Plan 81M presented with sob acute on chronic hypoxic respiratory failure multifactorial, continues to improve, still requiring 5L, baseline is 3L hypernatremia due to poor intake D5W, monitor bmp concern for acute bacterial pneumonia cefepime wean o2 as tolerated copd with acute decompensation steroids, bronchodilators acute on chronic systolic chf diuresed well, changed back to po lasix 20mg daily coreg pseudomonas bacturia in chronic metzger possible UTI, patient unreliable with symptoms, continue cefepime hypokalemia, hypomagnesemia replaced,monitor dm insulin hld statin htn coreg urinary retention continue chronic metzger, flomax HALINA on CKD III monitor closely lung cancer outpatient follow up dvt prophylaxis - hep sq dnr/dni reason for continued hospitalization:ongoing hypoxia, not yet at baseline Quality Stroke Does the patient have a stroke diagnosis?: No VTE Prior VTE?: No VTE Risk Level:: Medical - moderate - high VTE Device Contraindication: Treatment Not Indicated VTE Drug Contraindication: N/A - Med Ordered
[2021-10-29 15:05] VITALS: BP 161/77; PULSE 72; RESP 18; TEMP 36.4; O2SAT 95
[2021-10-29 16:07] LABS: Glucose, Whole Blood 212 mg/dL (60-115)
[2021-10-29 19:31] VITALS: BP 130/62; PULSE 82; RESP 18; TEMP 36.7; O2SAT 92
[2021-10-29 20:44] LABS: Glucose, Whole Blood 127 mg/dL (60-115)
[2021-10-29] MEDS: Melatonin 3 MG TABLET 6 MG PO (20:54)
[2021-10-29] MEDS: Tamsulosin HCL 0.4 MG CAPSULE 0.8 MG PO (20:55)
[2021-10-29] MEDS: Atorvastatin Calcium 10 MG TABLET PO (20:55)
[2021-10-29 23:07] VITALS: BP 133/68; PULSE 84; RESP 18; TEMP 36.9; O2SAT 90
[2021-10-30] VITALS (10 sets, daily range): BP systolic 139–156; BP diastolic 61–91; PULSE 53–86; RESP 18–24; TEMP 35.6–36.5; O2SAT 89–99
[2021-10-30] MEDS: methylPREDNISolone Sod Succ 40 MG/ML VIAL IVPUSH ×2 (00:51→12:18)
[2021-10-30] MEDS: Dextrose 5 % 1,000 ML 80 ML IVCONT ×2 (00:52→08:18)
[2021-10-30] MEDS: Heparin Sodium,Porcine 5,000 UNIT/ML VIAL 5000 UNIT SUBCUT ×3 (05:03→21:27)
[2021-10-30] MEDS: Omeprazole 20 MG CAPSULE.DR PO (05:03)
[2021-10-30] MEDS: cefEPime HCl 1 GM in 0.9 % Sodium Chloride 50 ML IV ×2 (05:42→11:15)
[2021-10-30 07:29] LABS: Glucose, Whole Blood 207 mg/dL (60-115)
[2021-10-30 07:31] LABS: Hematocrit 34.1 % (42.0-52.0); Hemoglobin 10.6 g/dl (14.0-18.0); Mean Corpuscular HGB Conc 31.1 g/dl (31.0-36.0); Mean Corpuscular Hemoglobin 28.3 pg (27.0-33.0); Mean Corpuscular Volume 91.2 fL (80.0-98.0); Mean Platelet Volume 11.9 fL (9.4-12.4); Platelet Count 163 X10*3/uL (160-400); Red Blood Count 3.74 X10*6/uL (4.60-5.80); Red Cell Distribution Width 13.8 % (11.0-16.0)
[2021-10-30 07:44] LABS: Anion Gap 13 (12-20); Blood Urea Nitrogen 97 mg/dL (9-16); Calcium 8.5 mg/dL (8.4-10.2); Carbon Dioxide 35 mmol/L (22-29); Chloride 103 mmol/L (96-108); Estimated Glomerular Filt Rate 29; Glucose Fasting 160 mg/dL (60-99); Potassium 4.2 mmol/L (3.3-5.1); Sodium 147 mmol/L (135-145)
[2021-10-30] MEDS: Insulin Lispro 100 UNIT/ML 3 ML VIAL SUBCUT ×4 (08:13→21:28)
[2021-10-30] MEDS: Magnesium Oxide 400 MG TABLET 800 MG PO ×2 (08:13→17:42)
[2021-10-30] MEDS: carvediloL 6.25 MG TABLET PO ×2 (08:14→21:27)
[2021-10-30] MEDS: guaiFENesin LA 600 MG TAB.ER.12H PO ×2 (08:14→21:27)
[2021-10-30] MEDS: Furosemide 20 MG TABLET PO (08:14)
[2021-10-30] MEDS: Acetaminophen 325 MG TABLET 650 MG PO (08:15)
[2021-10-30] MEDS: Multivitamin TABLET 1 TAB PO (08:15)
[2021-10-30 10:03] LABS: ABG HCO3 35 mmol/L (22-26); ABG pCO2 66 mmHg (32-45); ABG pH 7.33 (7.35-7.45); ABG pO2 57 mmHg (83-108)
[2021-10-30] MEDS: Morphine Sulfate 2 MG/ML CARTRIDGE 1 MG IVPUSH (11:12)
--- NOTE | 2021-10-30 11:40 | MHC.CM.PN ---
Per [facility]OUNDS discussion, Patient is not yet medically cleared for dc (worsening COPD, High Flow O2, IV Cefepime, IV Solu Medrol); Returning to [facility] is the goal and CM will continue to follow.
--- NOTE | 2021-10-30 11:40 | HO.PM.IMPN ---
Subjective Subjective Date of Service: 10/30/21 Interval History: cc: sob interval history:increasing confusion, sob Cardiovascular Cardiovascular: Reports no additional cardiovascular complaints Gastrointestinal Gastrointestinal: Reports no additional gastrointestinal complaints Physical Exam Vital Signs: Vital Signs: Last Vital Signs Temp 97.7 F 10/30/21 07:47 Pulse 77 10/30/21 11:12 Resp 24 H 10/30/21 11:12 BP 156/81 H 10/30/21 07:47 Pulse Ox 99 10/30/21 11:12 O2 Del Method 10/30/21 11:12 O2 Flow Rate 50 10/30/21 11:12 FiO2 60 10/30/21 11:12 Oxygen Flow Rate 10 10/25/21 03:55 BMI result Body Mass Index 24.6 General: AO X 3- confused at times, ill appearing, dyspneic Resp: diminished bilateral, accessory muscles used CVS: S1,S2,RRR GI: soft, non tender, non distended Neuro: motor grossly intact, alert Psych: appropriate affect, impaired insight Objective Data Active Medications Acetaminophen (Acetaminophen 325 Mg Tablet) 650 mg PO Q6H PRN PRN Reason: Pain, Mild (Pain Scale 1-3) Last Admin: 10/30/21 08:15 Dose: 650 mg Documented By: LINDA Albuterol Sulfate (Albuterol Sulfate 90 Mcg 8 Gm Inhaler) 1 puff INHALE Q4H PRN PRN Reason: Wheezing Albuterol/Ipratropium (Albuterol/Iprat 2.5/0.5mg 3 Ml Ampul.Neb) 3 ml INHALE RQ4H PRN PRN Reason: sob Last Admin: 10/28/21 17:46 Dose: 3 ml Documented By: ASHLEIGH Atorvastatin Calcium (Atorvastatin Calcium 10 Mg Tablet) 10 mg PO BEDTIME YIN Last Admin: 10/29/21 20:55 Dose: 10 mg Documented By: WARREN Carvedilol (Carvedilol 6.25 Mg Tablet) 6.25 mg PO BID YIN; Protocol Last Admin: 10/30/21 08:14 Dose: 6.25 mg Documented By: LINDA Dextrose (Dextrose 50 % 25 Gm/50 Ml Syringe) 25 gm IVPUSH Q15M PRN; Protocol PRN Reason: per Hypoglycemia Standing Ord. Furosemide (Furosemide 20 Mg Tablet) 20 mg PO DAILY YIN; Protocol Last Admin: 10/30/21 08:14 Dose: 20 mg Documented By: LINDA Glucose (Glucose Gel 15 Gm Gel..Gram.) 15 gm PO Q15M PRN; Protocol PRN Reason: per Hypoglycemia Standing Ord. Guaifenesin (Guaifenesin La 600 Mg Tab.Er.12h) 600 mg PO BID [facility] Last Admin: 10/30/21 08:14 Dose: 600 mg Documented By: LINDA Heparin Sodium (Porcine) (Heparin Sodium,Porcine 5,000 Unit/Ml Vial) 5,000 unit SUBCUT Q8H [facility] Last Admin: 10/30/21 05:03 Dose: 5,000 unit Documented By: WARREN Cefepime HCl 1 gm/ Sodium (Chloride) 50 mls @ 100 mls/hr IV Q8H [facility] Last Admin: 10/30/21 11:15 Dose: 100 mls/hr Documented By: LINDA Dextrose (D5w) 1,000 mls @ 100 mls/hr IVCONT .Q10H [facility] Last Infusion: 10/30/21 09:48 Dose: 100 mls/hr Documented By: ILNDA Insulin Human Lispro (Insulin Lispro 100 Unit/Ml 3 Ml Vial) 0 unit SUBCUT QIDACHS [facility]; Protocol Last Admin: 10/30/21 08:13 Dose: 4 unit Documented By: LINDA Magnesium Oxide (Magnesium Oxide 400 Mg Tablet) 800 mg PO BIDPC [facility] Last Admin: 10/30/21 08:13 Dose: 800 mg Documented By: LINDA Melatonin (Melatonin 3 Mg Tablet) 6 mg PO BEDTIME [facility] Last Admin: 10/29/21 20:54 Dose: 6 mg Documented By: WARREN Methylprednisolone Sodium Succinate (Methylprednisolone Sod Succ 40 Mg/Ml Vial) 40 mg IVPUSH Q12H [facility] Last Admin: 10/30/21 00:51 Dose: 40 mg Documented By: ANTMAX Multivitamins/Vitamin C (Multivitamin Tablet) 1 tab PO DAILY [facility] Last Admin: 10/30/21 08:15 Dose: 1 tab Documented By: LINDA Omeprazole (Omeprazole 20 Mg Cristopher.) 20 mg PO DAILY@0630 [facility] Last Admin: 10/30/21 05:03 Dose: 20 mg Documented By: WARREN Ondansetron HCl (Ondansetron Odt 4 Mg Tab.Rapdis) 4 mg TRANSLINGU Q8H PRN PRN Reason: Nausea Sodium Chloride (0.9 % Sodium Chloride Flush 3 Ml Syringe) 3 ml IVFLUSH QSHIFT [facility] Last Admin: 10/30/21 08:13 Dose: Not Given Documented By: LINDA Non-Admin Reason: IV Running Tamsulosin HCl (Tamsulosin Hcl 0.4 Mg Capsule) 0.8 mg PO BEDTIME [facility] Last Admin: 10/29/21 20:55 Dose: 0.8 mg Documented By: WARREN Labs CBC & Chem 7: 10/30/21 05:33 10/30/21 05:33 Labs: Laboratory Results - last 24 hr 10/29/21 10/29/21 10/30/21 16:00 20:39 05:33 MCV 91.2 MCH 28.3 MCHC 31.1 RDW 13.8 Plt Count 163 MPV 11.9 Absolute Nucleated RBC 0.000 Nucleated RBC % (auto) 0.0 O2 Saturation ABG pH at Pt Temp ABG pCO2 at Pt Temp ABG pO2 at Pt Temp ABG HCO3 ABG Base Excess (Actual) Anion Gap Estim Creat Clear Calc Estimated GFR POC Glucose 212 H 127 H Fasting Glucose Calcium 10/30/21 10/30/21 10/30/21 05:33 07:16 09:59 MCV MCH MCHC RDW Plt Count MPV Absolute Nucleated RBC Nucleated RBC % (auto) O2 Saturation 84.0 ABG pH at Pt Temp 7.33 L ABG pCO2 at Pt Temp 66 H* ABG pO2 at Pt Temp 57 L ABG HCO3 35 H ABG Base Excess (Actual) 8.0 Anion Gap 13 Estim Creat Clear Calc 27.0 Estimated GFR 29 POC Glucose 207 H Fasting Glucose 160 H Calcium 8.5 Microbiology Microbiology Results: Microbiology 10/25/21 04:07 Blood Culture - Final Blood - Venous No growth after 5 days. 10/25/21 04:08 Blood Culture - Final Blood - Venous No growth after 5 days. Assessment and Plan (1) Acute and chronic respiratory failure with hypoxia: Status: Acute Plan 81M presented with sob acute on chronic hypoxic and hypercapneic respiratory failure complicated by metabolic encephalopathy intially improved, worsening today will place on high flow (co2 washout, tolerate better than NIPPV) hypernatremia due to poor intake D5W, monitor bmp, increase rate to 100cc/hr concern for acute bacterial pneumonia cefepime wean o2 as tolerated copd with acute decompensation steroids, bronchodilators acute on chronic systolic chf diuresed well, changed back to po lasix 20mg daily coreg pseudomonas bacturia in patient with chronic metzger possible UTI, patient unreliable with symptoms, continue cefepime hypokalemia, hypomagnesemia replaced,monitor dm insulin hld statin htn coreg urinary retention continue chronic metzger, flomax HALINA on CKD III monitor closely lung cancer outpatient follow up dvt prophylaxis - hep sq dnr/dni reason for continued hospitalization:ongoing hypoxia, not yet at baseline Quality Stroke Does the patient have a stroke diagnosis?: No VTE Prior VTE?: No VTE Risk Level:: Medical - moderate - high VTE Device Contraindication: Treatment Not Indicated VTE Drug Contraindication: N/A - Med Ordered
[2021-10-30 11:47] LABS: Glucose, Whole Blood 216 mg/dL (60-115)
[2021-10-30] MEDS: LORazepam 2 MG/ML VIAL 0.5 MG IVPUSH (12:18)
[2021-10-30] MEDS: Haloperidol Lactate 5 MG/ML VIAL IVPUSH (13:44)
[2021-10-30 15:59] LABS: Glucose, Whole Blood 173 mg/dL (60-115)
[2021-10-30] MEDS: Dextrose 5 % 1,000 ML 100 ML IVCONT (17:44)
--- NOTE | 2021-10-30 18:43 | PC.NURSE ---
Beginning of shift, pt had increasing confusion and SOB. MD Santossin up to assess patient, order ABG and repeat CXR. Placed on high flow O2. Pt continually trying to remove O2, agitated, aggressive towards staff, trying to climb OOB. One time morphine given, no effect. One time ativan given, minimal effect. Pt getting increasingly agitated. 1:1 sitter requested for safety, no staff available.. MD mendoza back up to assess patient, order for one time haldol. Given with good effect. Sitter now available and currently in room. Pt still continues to have outbursts of agitation/aggression towards staff. will continue to monitor.
[2021-10-30 19:41] LABS: Glucose, Whole Blood 218 mg/dL (60-115)
[2021-10-30] MEDS: Atorvastatin Calcium 10 MG TABLET PO (21:27)
[2021-10-30] MEDS: Melatonin 3 MG TABLET 6 MG PO (21:27)
[2021-10-30] MEDS: Tamsulosin HCL 0.4 MG CAPSULE 0.8 MG PO (21:27)
[2021-10-30] MEDS: traZODone HCL 50 MG TABLET PO (21:27)
[2021-10-31] VITALS (14 sets, daily range): BP systolic 123–180; BP diastolic 45–99; PULSE 57–68; RESP 16–30; TEMP 36.4–36.7; O2SAT 89–98
[2021-10-31] MEDS: hydrOXYzine HCL 25 MG TABLET PO (00:04)
[2021-10-31] MEDS: methylPREDNISolone Sod Succ 40 MG/ML VIAL IVPUSH ×2 (02:39→12:39)
[2021-10-31] MEDS: Heparin Sodium,Porcine 5,000 UNIT/ML VIAL 5000 UNIT SUBCUT ×3 (05:08→20:29)
[2021-10-31] MEDS: cefEPime HCl 1 GM in 0.9 % Sodium Chloride 50 ML IV ×3 (05:08→20:22)
[2021-10-31 06:12] LABS: Hematocrit 35.9 % (42.0-52.0); Hemoglobin 11.4 g/dl (14.0-18.0); Mean Corpuscular HGB Conc 31.8 g/dl (31.0-36.0); Mean Corpuscular Hemoglobin 28.7 pg (27.0-33.0); Mean Corpuscular Volume 90.4 fL (80.0-98.0); Mean Platelet Volume 11.3 fL (9.4-12.4); Platelet Count 159 X10*3/uL (160-400); Red Blood Count 3.97 X10*6/uL (4.60-5.80); Red Cell Distribution Width 13.5 % (11.0-16.0); White Blood Count 12.5 X10*3/uL (4.8-10.8)
[2021-10-31 06:45] LABS: Anion Gap 13 (12-20); Blood Urea Nitrogen 89 mg/dL (9-16); Calcium 8.5 mg/dL (8.4-10.2); Carbon Dioxide 32 mmol/L (22-29); Chloride 101 mmol/L (96-108); Creatinine Clr Calc Pharmacy 29.9; Estimated Glomerular Filt Rate 32; Glucose Fasting 163 mg/dL (60-99); Potassium 4.1 mmol/L (3.3-5.1); Sodium 142 mmol/L (135-145)
[2021-10-31] MEDS: Insulin Lispro 100 UNIT/ML 3 ML VIAL SUBCUT ×4 (09:45→20:29)
[2021-10-31] MEDS: Acetaminophen 325 MG TABLET 650 MG PO (09:45)
[2021-10-31] MEDS: Furosemide 20 MG TABLET PO (09:46)
[2021-10-31] MEDS: Multivitamin TABLET 1 TAB PO (09:46)
[2021-10-31] MEDS: guaiFENesin LA 600 MG TAB.ER.12H PO ×2 (09:46→20:33)
[2021-10-31] MEDS: carvediloL 6.25 MG TABLET PO ×2 (09:46→20:32)
[2021-10-31] MEDS: Magnesium Oxide 400 MG TABLET 800 MG PO ×2 (09:46→16:52)
[2021-10-31] MEDS: 0.9 % Sodium Chloride Flush 3 ML SYRINGE IVFLUSH ×3 (09:47→20:23)
[2021-10-31 10:00] LABS: Glucose, Whole Blood 189 mg/dL (60-115)
--- NOTE | 2021-10-31 10:02 | P.PNIM_ITS ---
Subjective Subjective Date of Service: 10/31/21 Interval History: cc: sob interval history:sleeping comfortably Cardiovascular Cardiovascular: Reports no additional cardiovascular complaints Gastrointestinal Gastrointestinal: Reports no additional gastrointestinal complaints Physical Exam Vital Signs: Vital Signs: Last Vital Signs Temp 96.1 F L 10/30/21 23:02 Pulse 61 10/31/21 08:00 Resp 18 10/31/21 08:33 BP 151/82 H 10/31/21 08:00 Pulse Ox 91 L 10/31/21 08:00 O2 Del Method 10/31/21 08:00 O2 Flow Rate 50 10/31/21 04:00 FiO2 40 10/31/21 04:00 Oxygen Flow Rate 10 10/25/21 03:55 BMI result Body Mass Index 24.6 General: lethargic, confused at times Resp: diminished bilateral, accessory muscles used CVS: S1,S2,RRR GI: soft, non tender, non distended Neuro: motor grossly intact, lethargic Psych: appropriate affect, impaired insight Objective Data Active Medications Acetaminophen (Acetaminophen 325 Mg Tablet) 650 mg PO Q6H PRN PRN Reason: Pain, Mild (Pain Scale 1-3) Last Admin: 10/31/21 09:45 Dose: 650 mg Documented By: PARMINDER Albuterol Sulfate (Albuterol Sulfate 90 Mcg 8 Gm Inhaler) 1 puff INHALE Q4H PRN PRN Reason: Wheezing Albuterol/Ipratropium (Albuterol/Iprat 2.5/0.5mg 3 Ml Ampul.Neb) 3 ml INHALE RQ4H PRN PRN Reason: sob Last Admin: 10/28/21 17:46 Dose: 3 ml Documented By: ASHLEIGH Atorvastatin Calcium (Atorvastatin Calcium 10 Mg Tablet) 10 mg PO BEDTIME YIN Last Admin: 10/30/21 21:27 Dose: 10 mg Documented By: MUKESH Carvedilol (Carvedilol 6.25 Mg Tablet) 6.25 mg PO BID [facility]; Protocol Last Admin: 10/31/21 09:46 Dose: 6.25 mg Documented By: PARMINDER Dextrose (Dextrose 50 % 25 Gm/50 Ml Syringe) 25 gm IVPUSH Q15M PRN; Protocol PRN Reason: per Hypoglycemia Standing Ord. Furosemide (Furosemide 20 Mg Tablet) 20 mg PO DAILY [facility]; Protocol Last Admin: 10/31/21 09:46 Dose: 20 mg Documented By: PARMINDER Glucose (Glucose Gel 15 Gm Gel..Gram.) 15 gm PO Q15M PRN; Protocol PRN Reason: per Hypoglycemia Standing Ord. Guaifenesin (Guaifenesin La 600 Mg Tab.Er.12h) 600 mg PO BID [facility] Last Admin: 10/31/21 09:46 Dose: 600 mg Documented By: PARMINDER Heparin Sodium (Porcine) (Heparin Sodium,Porcine 5,000 Unit/Ml Vial) 5,000 unit SUBCUT Q8H [facility] Last Admin: 10/31/21 05:08 Dose: 5,000 unit Documented By: QUENTIN Cefepime HCl 1 gm/ Sodium (Chloride) 50 mls @ 100 mls/hr IV Q8H [facility] Last Infusion: 10/31/21 06:05 Dose: 100 mls/hr Documented By: QUENTIN Insulin Human Lispro (Insulin Lispro 100 Unit/Ml 3 Ml Vial) 0 unit SUBCUT QIDACHS [facility]; Protocol Last Admin: 10/31/21 09:45 Dose: 2 unit Documented By: PARMINDER Magnesium Oxide (Magnesium Oxide 400 Mg Tablet) 800 mg PO BIDPC [facility] Last Admin: 10/31/21 09:46 Dose: 800 mg Documented By: PARMINDER Melatonin (Melatonin 3 Mg Tablet) 6 mg PO BEDTIME [facility] Last Admin: 10/30/21 21:27 Dose: 6 mg Documented By: MUKESH Methylprednisolone Sodium Succinate (Methylprednisolone Sod Succ 40 Mg/Ml Vial) 40 mg IVPUSH Q12H [facility] Last Admin: 10/31/21 02:39 Dose: 40 mg Documented By: QUENTIN Multivitamins/Vitamin C (Multivitamin Tablet) 1 tab PO DAILY [facility] Last Admin: 10/31/21 09:46 Dose: 1 tab Documented By: PARMINDER Omeprazole (Omeprazole 20 Mg Capsule.) 20 mg PO DAILY@0630 [facility] Last Admin: 10/31/21 05:53 Dose: Not Given Documented By: QUENTIN Non-Admin Reason: Patient Refused Ondansetron HCl (Ondansetron Odt 4 Mg Tab.Rapdis) 4 mg TRANSLINGU Q8H PRN PRN Reason: Nausea Sodium Chloride (0.9 % Sodium Chloride Flush 3 Ml Syringe) 3 ml IVFLUSH QSHIFT [facility] Last Admin: 10/31/21 09:47 Dose: 3 ml Documented By: PARMINDER Tamsulosin HCl (Tamsulosin Hcl 0.4 Mg Capsule) 0.8 mg PO BEDTIME [facility] Last Admin: 10/30/21 21:27 Dose: 0.8 mg Documented By: MUKESH Labs CBC & Chem 7: 10/31/21 06:01 10/31/21 06:01 Labs: Laboratory Results - last 24 hr 10/30/21 10/30/21 10/30/21 09:59 11:11 15:55 MCV MCH MCHC RDW Plt Count MPV Absolute Nucleated RBC Nucleated RBC % (auto) O2 Saturation 84.0 ABG pH at Pt Temp 7.33 L ABG pCO2 at Pt Temp 66 H* ABG pO2 at Pt Temp 57 L ABG HCO3 35 H ABG Base Excess (Actual) 8.0 Anion Gap Estim Creat Clear Calc Estimated GFR POC Glucose 216 H 173 H Fasting Glucose Calcium 10/30/21 10/31/21 10/31/21 19:37 06:01 06:01 MCV 90.4 MCH 28.7 MCHC 31.8 RDW 13.5 Plt Count 159 L MPV 11.3 Absolute Nucleated RBC 0.000 Nucleated RBC % (auto) 0.0 O2 Saturation ABG pH at Pt Temp ABG pCO2 at Pt Temp ABG pO2 at Pt Temp ABG HCO3 ABG Base Excess (Actual) Anion Gap 13 Estim Creat Clear Calc 29.9 Estimated GFR 32 POC Glucose 218 H Fasting Glucose 163 H Calcium 8.5 10/31/21 09:39 MCV MCH MCHC RDW Plt Count MPV Absolute Nucleated RBC Nucleated RBC % (auto) O2 Saturation ABG pH at Pt Temp ABG pCO2 at Pt Temp ABG pO2 at Pt Temp ABG HCO3 ABG Base Excess (Actual) Anion Gap Estim Creat Clear Calc Estimated GFR POC Glucose 189 H Fasting Glucose Calcium Microbiology Microbiology Results: Microbiology 10/25/21 04:07 Blood Culture - Final Blood - Venous No growth after 5 days. 10/25/21 04:08 Blood Culture - Final Blood - Venous No growth after 5 days. Assessment and Plan (1) Acute and chronic respiratory failure with hypoxia: Status: Acute Plan 81M presented with sob acute on chronic hypoxic and hypercapneic respiratory failure complicated by metabolic encephalopathy intially improved, worsening since 10/30/21 was then placed on high flow (co2 washout, tolerate better than NIPPV) follow up vbg hypernatremia due to poor intake improved after d5w, monitor concern for acute bacterial pneumonia cefepime wean o2 as tolerated copd with acute decompensation steroids, bronchodilators acute on chronic systolic chf diuresed well, changed back to po lasix 20mg daily coreg pseudomonas bacturia in patient with chronic metzger possible UTI, patient unreliable with symptoms, continue cefepime hypokalemia, hypomagnesemia replaced,monitor dm insulin hld statin htn coreg urinary retention continue chronic metzger, flomax HALINA on CKD III monitor closely lung cancer outpatient follow up dvt prophylaxis - hep sq dnr/dni reason for continued hospitalization:ongoing hypoxia, not yet at baseline Quality Stroke Does the patient have a stroke diagnosis?: No VTE Prior VTE?: No VTE Risk Level:: Medical - moderate - high VTE Device Contraindication: Treatment Not Indicated VTE Drug Contraindication: N/A - Med Ordered
[2021-10-31 10:32] LABS: VBG Base Excess 8.2 mmol/L; VBG HCO3 36 mmol/L (22-26); VBG pCO2 67 mmHg; VBG pH 7.33 (7.32-7.43); VBG pO2 38 mmHg
[2021-10-31 10:33] LABS: Venous Blood Gas Refer to POC result
[2021-10-31] MEDS: Haloperidol Lactate 5 MG/ML VIAL 1 MG IM (10:57)
[2021-10-31 11:27] LABS: Glucose, Whole Blood 277 mg/dL (60-115)
--- NOTE | 2021-10-31 12:53 | PM.EVENT ---
Event Note Date of Service: 10/31/21 Event Note: [facility] ?( HCP) ?[phone].
[2021-10-31] MEDS: Albuterol/Iprat 2.5/0.5MG 3 ML AMPUL.NEB INHALE (14:18)
[2021-10-31 15:59] LABS: Glucose, Whole Blood 209 mg/dL (60-115)
--- NOTE | 2021-10-31 17:50 | PC.NURSE ---
Slept until 10am. patient woke up agitated. Took off his high flow oxygen and became short of breath. Patient refused to let staff put the oxygen back on, hitting staff,attempted to get out of bed. Security called for back up. Dr. Li. R updated, new order to give IM haldol x1. Medication given with good effect. Patient took all his other schedule meds. VSS, afebrile. Continue on IV ABT, no adverse reaction noted. resting in bed quietly at this time. Daughter visited this afternoon. Will continue to monitor and treat per plan of care.
[2021-10-31 19:49] LABS: Glucose, Whole Blood 230 mg/dL (60-115)
[2021-10-31] MEDS: Tamsulosin HCL 0.4 MG CAPSULE 0.8 MG PO (20:30)
[2021-10-31] MEDS: Melatonin 3 MG TABLET 6 MG PO (20:31)
[2021-10-31] MEDS: Atorvastatin Calcium 10 MG TABLET PO (20:32)
--- NOTE | 2021-10-31 22:11 | P.CONPL_ITS ---
History of Present Illness History of Present Illness Consult date: 10/31/21 Chief complaint: hypoxia Narrative: this is an inpatient pulmonary consultation. The patient is a81 gentleman with known chronic hypoxic respiratory failure on 3 L home O2 due to history of COPD and chronic systolic CHF as well as recent diagnosis of squamous cell lung cancer, presented with shortness of breath.? Patient was residing at a care home and was complaining of shortness of breath.? Was found to be severely hypoxic on his 3 L home O2 by paramedics patient was tachypneic and saturating 60% he was placed on a non-rebreather and saturation improved to 88%.? In ED chest x-ray showed bilateral pleural calcifications suspicious for asbestos exposure, small right pleural effusion and moderate right basilar atelectasis and/or consolidation.? White blood cell count was elevated at 19. patient initially placed on high flow oxygen. 1 the hospital his condition started improving and was able to be titrated to nasal cannula and he was found to have a Pseudomonas UTI. He was placed on cefepime. However his respiratory status started worsening again. Repeat x-ray demonstrated worsening airspace disease. The patient had an ABG demonstrating acute on chronic hypercarbic respiratory failure. Initially the patient was electing to go on BiPAP and the patient has some issues with mental status. The patient is also DNR. He was placed back on high-flow. Seems to be tolerating that well. Repeat venous gas is about the same. I did speak to the patient although he is disoriented. He is a poor historian. I did call his proxy, his daughter. However left her message because was no crop picker. At this point plan to repeat the CT scan and also repeat the venous gas in the morning. If the patient has any worsening of his acidosis then we can contemplate BiPAP while on the floor. Hopefully the CT scan which I would like do was going on. Unfortunately, he has renal failure and we cannot provide him with contrast. 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, stage I Urinary retention Family History Family History Mother Breast cancer in situ Social History Social History Household Members: None Housing: Correction Do you presently have visiting nurse or other home services: No Unable to assess alcohol history related to: Unknown Alcohol intake: never Patient Tobacco Use Status: Former Tobacco user Substance Use Type: Unknown service: No Current occupational status: retired [employer] Allergies Allergy/AdvReac Type Severity Reaction Status Date / Time No Known Allergies Allergy Verified 10/25/21 04:04 Active Medications: Current Medications Acetaminophen (Acetaminophen 325 Mg Tablet) 650 mg PO Q6H PRN PRN Reason: Pain, Mild (Pain Scale 1-3) Last Admin: 10/31/21 09:45 Dose: 650 mg Albuterol Sulfate (Albuterol Sulfate 90 Mcg 8 Gm Inhaler) 1 puff INHALE Q4H PRN PRN Reason: Wheezing Albuterol/Ipratropium (Albuterol/Iprat 2.5/0.5mg 3 Ml Ampul.Neb) 3 ml INHALE RQ4H PRN PRN Reason: sob Last Admin: 10/31/21 14:18 Dose: 3 ml Atorvastatin Calcium (Atorvastatin Calcium 10 Mg Tablet) 10 mg PO BEDTIME YIN Last Admin: 10/31/21 20:32 Dose: 10 mg Carvedilol (Carvedilol 6.25 Mg Tablet) 6.25 mg PO BID YIN; Protocol Last Admin: 10/31/21 20:32 Dose: 6.25 mg Dextrose (Dextrose 50 % 25 Gm/50 Ml Syringe) 25 gm IVPUSH Q15M PRN; Protocol PRN Reason: per Hypoglycemia Standing Ord. Furosemide (Furosemide 20 Mg Tablet) 20 mg PO DAILY YIN; Protocol Last Admin: 10/31/21 09:46 Dose: 20 mg Glucose (Glucose Gel 15 Gm Gel..Gram.) 15 gm PO Q15M PRN; Protocol PRN Reason: per Hypoglycemia Standing Ord. Guaifenesin (Guaifenesin La 600 Mg Tab.Er.12h) 600 mg PO BID YIN Last Admin: 10/31/21 20:33 Dose: 600 mg Heparin Sodium (Porcine) (Heparin Sodium,Porcine 5,000 Unit/Ml Vial) 5,000 unit SUBCUT Q8H [facility] Last Admin: 10/31/21 20:29 Dose: 5,000 unit Cefepime HCl 1 gm/ Sodium (Chloride) 50 mls @ 100 mls/hr IV Q8H [facility] Last Admin: 10/31/21 20:22 Dose: 100 mls/hr Insulin Human Lispro (Insulin Lispro 100 Unit/Ml 3 Ml Vial) 0 unit SUBCUT QIDACHS [facility]; Protocol Last Admin: 10/31/21 20:29 Dose: 4 unit Magnesium Oxide (Magnesium Oxide 400 Mg Tablet) 800 mg PO BIDPC [facility] Last Admin: 10/31/21 16:52 Dose: 800 mg Melatonin (Melatonin 3 Mg Tablet) 6 mg PO BEDTIME [facility] Last Admin: 10/31/21 20:31 Dose: 6 mg Methylprednisolone Sodium Succinate (Methylprednisolone Sod Succ 40 Mg/Ml Vial) 40 mg IVPUSH Q12H [facility] Last Admin: 10/31/21 12:39 Dose: 40 mg Multivitamins/Vitamin C (Multivitamin Tablet) 1 tab PO DAILY [facility] Last Admin: 10/31/21 09:46 Dose: 1 tab Omeprazole (Omeprazole 20 Mg Capsule.Dr) 20 mg PO DAILY@0630 [facility] Last Admin: 10/31/21 05:53 Dose: Not Given Ondansetron HCl (Ondansetron Odt 4 Mg Tab.Rapdis) 4 mg TRANSLINGU Q8H PRN PRN Reason: Nausea Sodium Chloride (0.9 % Sodium Chloride Flush 3 Ml Syringe) 3 ml IVFLUSH QSHIFT [facility] Last Admin: 10/31/21 20:23 Dose: 3 ml Tamsulosin HCl (Tamsulosin Hcl 0.4 Mg Capsule) 0.8 mg PO BEDTIME [facility] Last Admin: 10/31/21 20:30 Dose: 0.8 mg Home Medications Medication Instructions Recorded Confirmed Last Taken Type albuterol sulfate 90 mcg/actuation 1 puff inhalation Q4H PRN Wheezing 10/25/21 10/25/21 Unknown History aerosol inhaler amlodipine 5 mg tablet 1 tab PO DAILY 10/25/21 10/25/21 Unknown History carvedilol 6.25 mg tablet 1 tab PO BID 10/25/21 10/25/21 Unknown History clonidine HCl 0.1 mg tablet 1 tab PO DAILY 10/25/21 10/25/21 Unknown History furosemide 20 mg tablet 20 mg PO DAILY 10/25/21 10/25/21 Unknown History insulin lispro 100 unit/mL 1 sliding scale dose subcut 10/25/21 10/25/21 Unknown History subcutaneous solution (Humalog USEASDIRECTD U-100 Insulin) isosorbide mononitrate 30 mg 1 tab PO DAILY 10/25/21 10/25/21 Unknown History tablet,extended release 24 hr melatonin 3 mg tablet 6 mg PO BEDTIME 10/25/21 10/25/21 Unknown History multivitamin 1 tab PO DAILY 10/25/21 10/25/21 Unknown History omeprazole 20 mg tablet,delayed 20 mg PO DAILY 10/25/21 10/25/21 Unknown History release ondansetron HCl 4 mg tablet 4 mg PO Q8H PRN Nausea 10/25/21 10/25/21 Unknown History simvastatin 20 mg tablet 20 mg PO BEDTIME 10/25/21 10/25/21 Unknown History tamsulosin 0.4 mg capsule 0.8 mg PO BEDTIME 10/25/21 10/25/21 Unknown History Physical Exam Vital Signs: Vital Signs: Last Vital Signs Temp 97.6 F 10/31/21 20:00 Pulse 68 10/31/21 20:00 Resp 16 10/31/21 20:00 BP 160/45 H 10/31/21 20:00 Pulse Ox 96 10/31/21 20:00 O2 Del Method 10/31/21 20:00 O2 Flow Rate 50 10/31/21 20:00 FiO2 46.3 10/31/21 20:00 Oxygen Flow Rate 10 10/25/21 03:55 BMI result Body Mass Index 24.6 Const: General: awake and tired appearing HEENT: Head: Yes normal to inspection and Yes atraumatic Eyes: General: appearance normal, both eyes and all related structures Pupils: Equal, round and reactive pupils present Neck: Neck: Yes no lymphadenopathy, Yes trachea midline and Yes supple Chest: Chest palpation & inspection: normal inspection of the chest and normal palpation of entire chest wall Resp: Auscultation: diminished lung sounds Cardio: Rate: regular rate Rhythm: regular rhythm Heart sounds: S1 normal heart sound present, S2 normal heart sound present and no murmurs GI: Inspection: Yes normal to inspection Palpation (GI): Soft to palpation, nontender and no guarding Auscultation: normal bowel sounds : General: Yes no CVA tenderness Back/Spine/Pelvis: Back: no CVA tenderness Skin: General skin exam: no rashes or lesions noted Neuro: Cranial nerves: Yes CN's II-XII intact bilaterally and Yes Equal, round and reactive pupils present Cognition (Neuro): normal cognition Motor exam (neuro): 5/5 motor strength present throughout Extrem: Other: Trace to 1+ pitting edema bilaterally symmetric Psych: Appearance: grossly normal Affect: normal affect Attitude: cooperative Results Laboratory Findings CBC and BMP: 10/31/21 06:01 10/31/21 06:01 Abnormal lab findings: Abnormal Labs 10/25/21 10/25/21 10/25/21 04:07 04:07 04:07 WBC 19.2 H RBC 3.44 L Hgb 10.0 L Hct 31.1 L Plt Count 112 L Immature Gran % (Auto) 1.0 H Neut % (Auto) 91.6 H Lymph % (Auto) 2.3 L Lymph # (Auto) 0.4 L Abs Immat Gran (auto) 0.19 H Absolute Neuts (auto) 17.6 H Absolute Nucleated RBC ABG pH at Pt Temp ABG pCO2 at Pt Temp ABG pO2 at Pt Temp ABG HCO3 VBG HCO3 Sodium Potassium Carbon Dioxide BUN 58 H Creatinine 2.57 H POC Glucose Random Glucose 123 H Fasting Glucose Calcium 8.1 L Magnesium AST 66 H ALT 77 H Alkaline Phosphatase 252 H D Troponin I High Sens 174.8 H* B-Natriuretic Peptide 810 H Total Protein 6.2 L Albumin 3.4 L Urine Protein Urine Blood Urine Nitrite Ur Leukocyte Esterase Urine RBC Urine WBC 10/25/21 10/25/21 10/25/21 07:04 07:31 18:31 WBC RBC Hgb Hct Plt Count Immature Gran % (Auto) Neut % (Auto) Lymph % (Auto) Lymph # (Auto) Abs Immat Gran (auto) Absolute Neuts (auto) Absolute Nucleated RBC ABG pH at Pt Temp ABG pCO2 at Pt Temp ABG pO2 at Pt Temp ABG HCO3 VBG HCO3 Sodium Potassium Carbon Dioxide BUN Creatinine POC Glucose 116 H Random Glucose Fasting Glucose Calcium Magnesium AST ALT Alkaline Phosphatase Troponin I High Sens 204.1 H* B-Natriuretic Peptide Total Protein Albumin Urine Protein 2+ H Urine Blood 3+ H Urine Nitrite POS H Ur Leukocyte Esterase 3+ H Urine RBC 30-49 H Urine WBC 76-150 H 10/25/21 10/26/21 10/26/21 22:04 05:41 05:41 WBC 14.5 H RBC 3.66 L Hgb 10.5 L Hct 33.2 L Plt Count 126 L Immature Gran % (Auto) Neut % (Auto) Lymph % (Auto) Lymph # (Auto) Abs Immat Gran (auto) Absolute Neuts (auto) Absolute Nucleated RBC ABG pH at Pt Temp ABG pCO2 at Pt Temp ABG pO2 at Pt Temp ABG HCO3 VBG HCO3 Sodium Potassium Carbon Dioxide 30 H BUN 67 H Creatinine 2.72 H POC Glucose 215 H Random Glucose Fasting Glucose 141 H Calcium Magnesium AST ALT Alkaline Phosphatase Troponin I High Sens B-Natriuretic Peptide Total Protein Albumin Urine Protein Urine Blood Urine Nitrite Ur Leukocyte Esterase Urine RBC Urine WBC 10/26/21 10/26/21 10/26/21 07:22 11:16 19:48 WBC RBC Hgb Hct Plt Count Immature Gran % (Auto) Neut % (Auto) Lymph % (Auto) Lymph # (Auto) Abs Immat Gran (auto) Absolute Neuts (auto) Absolute Nucleated RBC ABG pH at Pt Temp ABG pCO2 at Pt Temp ABG pO2 at Pt Temp ABG HCO3 VBG HCO3 Sodium Potassium Carbon Dioxide BUN Creatinine POC Glucose 217 H 210 H 184 H Random Glucose Fasting Glucose Calcium Magnesium AST ALT Alkaline Phosphatase Troponin I High Sens B-Natriuretic Peptide Total Protein Albumin Urine Protein Urine Blood Urine Nitrite Ur Leukocyte Esterase Urine RBC Urine WBC 10/27/21 10/27/21 10/27/21 06:29 06:29 08:16 WBC 14.9 H RBC 3.59 L Hgb 10.5 L Hct 32.3 L Plt Count 141 L Immature Gran % (Auto) Neut % (Auto) Lymph % (Auto) Lymph # (Auto) Abs Immat Gran (auto) Absolute Neuts (auto) Absolute Nucleated RBC 0.020 H ABG pH at Pt Temp ABG pCO2 at Pt Temp ABG pO2 at Pt Temp ABG HCO3 VBG HCO3 Sodium Potassium 3.1 L D Carbon Dioxide BUN 87 H D Creatinine 2.87 H POC Glucose 243 H Random Glucose Fasting Glucose 279 H D Calcium 7.8 L D Magnesium 1.2 L* AST ALT Alkaline Phosphatase Troponin I High Sens B-Natriuretic Peptide Total Protein Albumin Urine Protein Urine Blood Urine Nitrite Ur Leukocyte Esterase Urine RBC Urine WBC 10/27/21 10/27/21 10/27/21 11:09 15:39 19:23 WBC RBC Hgb Hct Plt Count Immature Gran % (Auto) Neut % (Auto) Lymph % (Auto) Lymph # (Auto) Abs Immat Gran (auto) Absolute Neuts (auto) Absolute Nucleated RBC ABG pH at Pt Temp ABG pCO2 at Pt Temp ABG pO2 at Pt Temp ABG HCO3 VBG HCO3 Sodium Potassium Carbon Dioxide BUN Creatinine POC Glucose 146 H 150 H 213 H Random Glucose Fasting Glucose Calcium Magnesium AST ALT Alkaline Phosphatase Troponin I High Sens B-Natriuretic Peptide Total Protein Albumin Urine Protein Urine Blood Urine Nitrite Ur Leukocyte Esterase Urine RBC Urine WBC 10/28/21 10/28/21 10/28/21 07:33 08:26 11:49 WBC RBC Hgb Hct Plt Count Immature Gran % (Auto) Neut % (Auto) Lymph % (Auto) Lymph # (Auto) Abs Immat Gran (auto) Absolute Neuts (auto) Absolute Nucleated RBC ABG pH at Pt Temp ABG pCO2 at Pt Temp ABG pO2 at Pt Temp ABG HCO3 VBG HCO3 Sodium Potassium Carbon Dioxide BUN 102 H Creatinine 2.77 H POC Glucose 185 H 178 H Random Glucose 186 H D Fasting Glucose Calcium 8.3 L D Magnesium 1.5 L AST ALT Alkaline Phosphatase Troponin I High Sens B-Natriuretic Peptide Total Protein Albumin Urine Protein Urine Blood Urine Nitrite Ur Leukocyte Esterase Urine RBC Urine WBC 10/28/21 10/28/21 10/29/21 16:00 19:43 05:53 WBC 15.5 H RBC 3.60 L Hgb 10.4 L Hct 32.7 L Plt Count 156 L Immature Gran % (Auto) Neut % (Auto) Lymph % (Auto) Lymph # (Auto) Abs Immat Gran (auto) Absolute Neuts (auto) Absolute Nucleated RBC ABG pH at Pt Temp ABG pCO2 at Pt Temp ABG pO2 at Pt Temp ABG HCO3 VBG HCO3 Sodium Potassium Carbon Dioxide BUN Creatinine POC Glucose 145 H 242 H Random Glucose Fasting Glucose Calcium Magnesium AST ALT Alkaline Phosphatase Troponin I High Sens B-Natriuretic Peptide Total Protein Albumin Urine Protein Urine Blood Urine Nitrite Ur Leukocyte Esterase Urine RBC Urine WBC 10/29/21 10/29/21 10/29/21 05:53 07:15 11:16 WBC RBC Hgb Hct Plt Count Immature Gran % (Auto) Neut % (Auto) Lymph % (Auto) Lymph # (Auto) Abs Immat Gran (auto) Absolute Neuts (auto) Absolute Nucleated RBC ABG pH at Pt Temp ABG pCO2 at Pt Temp ABG pO2 at Pt Temp ABG HCO3 VBG HCO3 Sodium 148 H Potassium Carbon Dioxide 32 H BUN 103 H Creatinine 2.53 H POC Glucose 126 H 164 H Random Glucose Fasting Glucose 145 H D Calcium Magnesium AST ALT Alkaline Phosphatase Troponin I High Sens B-Natriuretic Peptide Total Protein Albumin Urine Protein Urine Blood Urine Nitrite Ur Leukocyte Esterase Urine RBC Urine WBC 10/29/21 10/29/21 10/30/21 16:00 20:39 05:33 WBC 13.0 H RBC 3.74 L Hgb 10.6 L Hct 34.1 L Plt Count Immature Gran % (Auto) Neut % (Auto) Lymph % (Auto) Lymph # (Auto) Abs Immat Gran (auto) Absolute Neuts (auto) Absolute Nucleated RBC ABG pH at Pt Temp ABG pCO2 at Pt Temp ABG pO2 at Pt Temp ABG HCO3 VBG HCO3 Sodium Potassium Carbon Dioxide BUN Creatinine POC Glucose 212 H 127 H Random Glucose Fasting Glucose Calcium Magnesium AST ALT Alkaline Phosphatase Troponin I High Sens B-Natriuretic Peptide Total Protein Albumin Urine Protein Urine Blood Urine Nitrite Ur Leukocyte Esterase Urine RBC Urine WBC 10/30/21 10/30/21 10/30/21 05:33 07:16 09:59 WBC RBC Hgb Hct Plt Count Immature Gran % (Auto) Neut % (Auto) Lymph % (Auto) Lymph # (Auto) Abs Immat Gran (auto) Absolute Neuts (auto) Absolute Nucleated RBC ABG pH at Pt Temp 7.33 L ABG pCO2 at Pt Temp 66 H* ABG pO2 at Pt Temp 57 L ABG HCO3 35 H VBG HCO3 Sodium 147 H Potassium Carbon Dioxide 35 H BUN 97 H Creatinine 2.21 H POC Glucose 207 H Random Glucose Fasting Glucose 160 H Calcium Magnesium AST ALT Alkaline Phosphatase Troponin I High Sens B-Natriuretic Peptide Total Protein Albumin Urine Protein Urine Blood Urine Nitrite Ur Leukocyte Esterase Urine RBC Urine WBC 10/30/21 10/30/21 10/30/21 11:11 15:55 19:37 WBC RBC Hgb Hct Plt Count Immature Gran % (Auto) Neut % (Auto) Lymph % (Auto) Lymph # (Auto) Abs Immat Gran (auto) Absolute Neuts (auto) Absolute Nucleated RBC ABG pH at Pt Temp ABG pCO2 at Pt Temp ABG pO2 at Pt Temp ABG HCO3 VBG HCO3 Sodium Potassium Carbon Dioxide BUN Creatinine POC Glucose 216 H 173 H 218 H Random Glucose Fasting Glucose Calcium Magnesium AST ALT Alkaline Phosphatase Troponin I High Sens B-Natriuretic Peptide Total Protein Albumin Urine Protein Urine Blood Urine Nitrite Ur Leukocyte Esterase Urine RBC Urine WBC 10/31/21 10/31/21 10/31/21 06:01 06:01 09:39 WBC 12.5 H RBC 3.97 L Hgb 11.4 L Hct 35.9 L Plt Count 159 L Immature Gran % (Auto) Neut % (Auto) Lymph % (Auto) Lymph # (Auto) Abs Immat Gran (auto) Absolute Neuts (auto) Absolute Nucleated RBC ABG pH at Pt Temp ABG pCO2 at Pt Temp ABG pO2 at Pt Temp ABG HCO3 VBG HCO3 Sodium Potassium Carbon Dioxide 32 H BUN 89 H Creatinine 2.00 H POC Glucose 189 H Random Glucose Fasting Glucose 163 H Calcium Magnesium AST ALT Alkaline Phosphatase Troponin I High Sens B-Natriuretic Peptide Total Protein Albumin Urine Protein Urine Blood Urine Nitrite Ur Leukocyte Esterase Urine RBC Urine WBC 10/31/21 10/31/21 10/31/21 10:22 11:23 15:55 WBC RBC Hgb Hct Plt Count Immature Gran % (Auto) Neut % (Auto) Lymph % (Auto) Lymph # (Auto) Abs Immat Gran (auto) Absolute Neuts (auto) Absolute Nucleated RBC ABG pH at Pt Temp ABG pCO2 at Pt Temp ABG pO2 at Pt Temp ABG HCO3 VBG HCO3 36 H Sodium Potassium Carbon Dioxide BUN Creatinine POC Glucose 277 H 209 H Random Glucose Fasting Glucose Calcium Magnesium AST ALT Alkaline Phosphatase Troponin I High Sens B-Natriuretic Peptide Total Protein Albumin Urine Protein Urine Blood Urine Nitrite Ur Leukocyte Esterase Urine RBC Urine WBC 10/31/21 19:45 WBC RBC Hgb Hct Plt Count Immature Gran % (Auto) Neut % (Auto) Lymph % (Auto) Lymph # (Auto) Abs Immat Gran (auto) Absolute Neuts (auto) Absolute Nucleated RBC ABG pH at Pt Temp ABG pCO2 at Pt Temp ABG pO2 at Pt Temp ABG HCO3 VBG HCO3 Sodium Potassium Carbon Dioxide BUN Creatinine POC Glucose 230 H Random Glucose Fasting Glucose Calcium Magnesium AST ALT Alkaline Phosphatase Troponin I High Sens B-Natriuretic Peptide Total Protein Albumin Urine Protein Urine Blood Urine Nitrite Ur Leukocyte Esterase Urine RBC Urine WBC Microbiology: Microbiology 10/25/21 04:07 Blood - Venous Blood Culture - Final No growth after 5 days. 10/25/21 04:08 Blood - Venous Blood Culture - Final No growth after 5 days. 10/25/21 Unknown Urine clean catch - Urine knowles top Urine Culture - Final Pseudomonas aeruginosa Assessment and Plan (1) Squamous cell carcinoma of lung, stage I: Status: Acute (2) Pneumonia: Status: Acute (3) Acute on chronic respiratory failure with hypoxia and hypercapnia: Status: Acute Plan Continue HF for now to keep pox>92% Repeat VBG in the AM, if worsens then trial on BIPAP continue cephalosporin, add Doxy, check MRSA screen CT chest wo contrast Respiratory therapy with nebulizer DNR/DNI Procedures Date of Service Date of Service: 10/31/21
[2021-10-31] MEDS: Morphine Sulfate 4 MG/ML CARTRIDGE IVPUSH (22:40)
[2021-10-31 22:48] LABS: Venous Blood Gas Refer to POC result
[2021-10-31 22:51] LABS: VBG Base Excess 9.2 mmol/L; VBG HCO3 37 mmol/L (22-26); VBG pCO2 70 mmHg; VBG pH 7.33 (7.32-7.43); VBG pO2 59 mmHg
[2021-10-31] MEDS: Doxycycline Hyclate 100 MG in 0.9 % Sodium Chloride 250 ML 166.67 MG IV (23:08)
[2021-10-31 23:09] LABS: B Type Natriuretic Peptide 1215 pg/mL (<100)
[2021-11-01] VITALS (11 sets, daily range): BP systolic 110–136; BP diastolic 60–93; PULSE 60–77; RESP 16–24; TEMP 34.2–36.7; O2SAT 85–97
--- NOTE | 2021-11-01 | ECG_ITS ---
Test Reason : cp Blood Pressure : / mmHG Vent. Rate : 077 BPM Atrial Rate : 071 BPM P-R Int : 212 ms QRS Dur : 124 ms QT Int : 414 ms P-R-T Axes : 073 003 208 degrees QTc Int : 468 ms Artifact in tracing Probably sinus rhythm Left ventricular hypertrophy with QRS widening and repolarization abnormality ( Sokolow-Milligan ) Possible Inferior infarct (cited on or before 01-NOV-2021) Abnormal ECG When compared with ECG of 25-OCT-2021 03:50, No significant changes seen Referred By: Filipe Quinones Electronically Signed By:PAOLO BYNUM
[2021-11-01] MEDS: methylPREDNISolone Sod Succ 40 MG/ML VIAL IVPUSH ×2 (01:00→13:13)
[2021-11-01] MEDS: cefEPime HCl 1 GM in 0.9 % Sodium Chloride 50 ML IV (04:00)
[2021-11-01] MEDS: Heparin Sodium,Porcine 5,000 UNIT/ML VIAL 5000 UNIT SUBCUT ×3 (05:03→22:06)
--- NOTE | 2021-11-01 06:17 | SUR.OPER ---
Around 22:20 patient became extremely SOB, RR 28-32, O2 sat 65-72% on the highflow at 50%. Resp called stat. Treatment given and highflow bumped up to 100%, in addition pt was placed on a non rebreather at 100%. Dr Quinones notified and ordered 4mg Morhpine IV, VBG's and chest xray. At 22:40 Morphine given. Around 22:40, respiratory put patient on bipap 16/10, 100% with O2 sat at 88%, RR 31-Dr notified. At 00:30, resp placed patient back on highflow @55L, 80% with a O2 sat at 88%. At 05:00, respiratory has highflow going at 50%, 50L with an O2 sat of 92%.
[2021-11-01 06:27] LABS: Hematocrit 39.4 % (42.0-52.0); Hemoglobin 12.2 g/dl (14.0-18.0); Mean Corpuscular Hemoglobin 28.5 pg (27.0-33.0); Mean Corpuscular Volume 92.1 fL (80.0-98.0); Platelet Count 177 X10*3/uL (160-400); Red Blood Count 4.28 X10*6/uL (4.60-5.80); Red Cell Distribution Width 13.7 % (11.0-16.0)
[2021-11-01 06:29] LABS: VBG Base Excess 7.4 mmol/L; VBG HCO3 36 mmol/L (22-26); VBG pCO2 75 mmHg; VBG pH 7.29 (7.32-7.43); VBG pO2 29 mmHg
[2021-11-01 06:30] LABS: Venous Blood Gas Refer to POC result
[2021-11-01 06:39] LABS: White Blood Count 34.3 X10*3/uL (4.8-10.8)
[2021-11-01 07:06] LABS: Anion Gap 12 (12-20); Blood Urea Nitrogen 88 mg/dL (9-16); Calcium 8.6 mg/dL (8.4-10.2); Carbon Dioxide 33 mmol/L (22-29); Chloride 100 mmol/L (96-108); Creatinine Clr Calc Pharmacy 26.7; Estimated Glomerular Filt Rate 28; Glucose Fasting 92 mg/dL (60-99); Potassium 4.3 mmol/L (3.3-5.1); Sodium 141 mmol/L (135-145)
[2021-11-01 08:08] LABS: Glucose, Whole Blood 130 mg/dL (60-115)
[2021-11-01] MEDS: QUEtiapine Fumarate 25 MG TABLET PO ×2 (10:57→15:33)
[2021-11-01] MEDS: Haloperidol Lactate 5 MG/ML VIAL 1 MG IVPUSH (10:57)
[2021-11-01] MEDS: Furosemide 20 MG TABLET PO (11:02)
[2021-11-01] MEDS: carvediloL 6.25 MG TABLET PO ×2 (11:03→22:07)
[2021-11-01 11:40] LABS: Glucose, Whole Blood 162 mg/dL (60-115)
[2021-11-01] MEDS: Doxycycline Hyclate 100 MG in 0.9 % Sodium Chloride 250 ML 166.67 MG IV ×2 (13:07→23:14)
[2021-11-01] MEDS: 0.9 % Sodium Chloride Flush 3 ML SYRINGE IVFLUSH ×2 (13:07→17:09)
[2021-11-01 13:18] LABS: ABG Base Excess 6.1 mmol/L; ABG HCO3 32 mmol/L (22-26); ABG pCO2 56 mmHg (32-45); ABG pH 7.37 (7.35-7.45); ABG pO2 65 mmHg (83-108)
[2021-11-01 13:46] LABS: ABG Refer to POC result
--- NOTE | 2021-11-01 14:08 | P.PNIM_ITS ---
Subjective Subjective Date of Service: 11/01/21 Interval History: the patient was seen and evaluated this morning standing next to his bed, arguing with the nurses and not following all c ommands found to be mildly hypothermic overnight requiring Bear Hugger agitated and restless No other overnight events Systemic review: No fever, chills or weakness No chest pain, palpitation reportingshortness of breath or coughing No abdominal pain, nausea or vomiting No urinary symptoms No any rash or wounds Physical Exam Vital Signs: Vital Signs: Last Vital Signs Temp 94.3 F L 11/01/21 11:54 Pulse 66 11/01/21 11:54 Resp 18 11/01/21 11:54 BP 112/62 11/01/21 11:54 Pulse Ox 92 11/01/21 11:54 O2 Del Method 11/01/21 11:54 O2 Flow Rate 72.8 11/01/21 11:54 FiO2 50 11/01/21 04:00 Oxygen Flow Rate 10 10/25/21 03:55 BMI result Body Mass Index 24.6 Const: Other: Constitutional : Alert, restless and agitated Neck : Normal inspection, Supple Cardiovascular : RRR, no JVP, no lower extremity edema Respiratory : decreased bilateral air entry with expiratory wheezes scattered Gastrointestinal: soft, lax, Normal bowel sounds, Non tender Skin : Warm, Dry Neurological : Alert & disoriented, No focal deficit noticed Objective Data Active Medications Acetaminophen (Acetaminophen 325 Mg Tablet) 650 mg PO Q6H PRN PRN Reason: Pain, Mild (Pain Scale 1-3) Last Admin: 10/31/21 09:45 Dose: 650 mg Documented By: PARMINDER Albuterol Sulfate (Albuterol Sulfate 90 Mcg 8 Gm Inhaler) 1 puff INHALE Q4H PRN PRN Reason: Wheezing Albuterol/Ipratropium (Albuterol/Iprat 2.5/0.5mg 3 Ml Ampul.Neb) 3 ml INHALE RQ4H PRN PRN Reason: sob Last Admin: 10/31/21 14:18 Dose: 3 ml Documented By: ROSHAN Atorvastatin Calcium (Atorvastatin Calcium 10 Mg Tablet) 10 mg PO BEDTIME YIN Last Admin: 10/31/21 20:32 Dose: 10 mg Documented By: MARIA G Carvedilol (Carvedilol 6.25 Mg Tablet) 6.25 mg PO BID [facility]; Protocol Last Admin: 11/01/21 11:03 Dose: 6.25 mg Documented By: HUMZA Dextrose (Dextrose 50 % 25 Gm/50 Ml Syringe) 25 gm IVPUSH Q15M PRN; Protocol PRN Reason: per Hypoglycemia Standing Ord. Furosemide (Furosemide 20 Mg Tablet) 20 mg PO DAILY [facility]; Protocol Last Admin: 11/01/21 11:02 Dose: 20 mg Documented By: HUMZA Glucose (Glucose Gel 15 Gm Gel..Gram.) 15 gm PO Q15M PRN; Protocol PRN Reason: per Hypoglycemia Standing Ord. Guaifenesin (Guaifenesin La 600 Mg Tab.Er.12h) 600 mg PO BID [facility] Last Admin: 11/01/21 12:23 Dose: Not Given Documented By: HUMZA Non-Admin Reason: Patient Refused Heparin Sodium (Porcine) (Heparin Sodium,Porcine 5,000 Unit/Ml Vial) 5,000 unit SUBCUT Q8H [facility] Last Admin: 11/01/21 13:13 Dose: 5,000 unit Documented By: HUMZA Cefepime HCl 1 gm/ Sodium (Chloride) 50 mls @ 100 mls/hr IV Q8H [facility] Last Infusion: 11/01/21 04:30 Dose: 0 mls/hr Documented By: MARIA G Doxycycline Hyclate 100 mg/ (Sodium Chloride) 250 mls @ 166.67 mls/hr IV Q12H [facility] Last Admin: 11/01/21 13:07 Dose: 166.67 mls/hr Documented By: HUMZA Insulin Human Lispro (Insulin Lispro 100 Unit/Ml 3 Ml Vial) 0 unit SUBCUT QIDACHS [facility]; Protocol Last Admin: 11/01/21 12:57 Dose: Not Given Documented By: HUMZA Non-Admin Reason: pt not eating Magnesium [facility] ([facility] 400 Mg Tablet) [facility] Last Admin: 11/01/21 12:23 Dose: Not Given Documented By: HUMZA Non-Admin Reason: Patient Refused Melatonin (Melatonin 3 Mg Tablet) 6 mg PO BEDTIME [facility] Last Admin: 10/31/21 20:31 Dose: 6 mg Documented By: MARIA G Methylprednisolone Sodium Succinate (Methylprednisolone Sod Succ 40 Mg/Ml Vial) 40 mg IVPUSH Q12H [facility] Last Admin: 11/01/21 13:13 Dose: 40 mg Documented By: HUMZA Multivitamins/Vitamin C (Multivitamin Tablet) 1 tab PO DAILY [facility] Last Admin: 11/01/21 12:23 Dose: Not Given Documented By: HUMZA Non-Admin Reason: Patient Refused Omeprazole (Omeprazole 20 Mg Capsule.) 20 mg PO DAILY@0630 [facility] Last Admin: 11/01/21 06:46 Dose: Not Given Documented By: MARIA G Non-Admin Reason: too ill Ondansetron HCl (Ondansetron Odt 4 Mg Tab.Rapdis) 4 mg TRANSLINGU Q8H PRN PRN Reason: Nausea Quetiapine Fumarate (Quetiapine Fumarate 25 Mg Tablet) 25 mg PO BID@0800,1700 [facility] Last Admin: 11/01/21 10:57 Dose: 25 mg Documented By: HUMZA Sodium Chloride (0.9 % Sodium Chloride Flush 3 Ml Syringe) 3 ml IVFLUSH QSHIFT [facility] Last Admin: 11/01/21 13:07 Dose: 3 ml Documented By: HUMZA Tamsulosin HCl (Tamsulosin Hcl 0.4 Mg Capsule) 0.8 mg PO BEDTIME [facility] Last Admin: 10/31/21 20:30 Dose: 0.8 mg Documented By: MARIA G Labs CBC & Chem 7: 11/01/21 06:16 11/01/21 06:16 Labs: Laboratory Results - last 24 hr 10/31/21 10/31/21 10/31/21 15:55 19:45 22:40 MCV MCH MCHC RDW Plt Count MPV Absolute Nucleated RBC Nucleated RBC % (auto) Smear Path Review O2 Saturation ABG pH at Pt Temp ABG pCO2 at Pt Temp ABG pO2 at Pt Temp ABG HCO3 ABG Base Excess (Actual) VBG pH VBG pCO2 VBG pO2 VBG HCO3 VBG O2 Saturation VBG Base Excess Anion Gap Estim Creat Clear Calc Estimated GFR POC Glucose 209 H 230 H Fasting Glucose Calcium B-Natriuretic Peptide 1215 H 10/31/21 11/01/21 11/01/21 22:45 06:16 06:16 MCV 92.1 MCH 28.5 MCHC 31.0 RDW 13.7 Plt Count 177 MPV 11.0 Absolute Nucleated RBC 0.000 Nucleated RBC % (auto) 0.0 Smear Path Review Cancelled O2 Saturation ABG pH at Pt Temp ABG pCO2 at Pt Temp ABG pO2 at Pt Temp ABG HCO3 ABG Base Excess (Actual) VBG pH 7.33 VBG pCO2 70 VBG pO2 59 VBG HCO3 37 H VBG O2 Saturation 87.0 VBG Base Excess 9.2 Anion Gap 12 Estim Creat Clear Calc 26.7 Estimated GFR 28 POC Glucose Fasting Glucose 92 D Calcium 8.6 B-Natriuretic Peptide 11/01/21 11/01/21 11/01/21 06:23 07:33 11:34 MCV MCH MCHC RDW Plt Count MPV Absolute Nucleated RBC Nucleated RBC % (auto) Smear Path Review O2 Saturation ABG pH at Pt Temp ABG pCO2 at Pt Temp ABG pO2 at Pt Temp ABG HCO3 ABG Base Excess (Actual) VBG pH 7.29 L VBG pCO2 75 VBG pO2 29 VBG HCO3 36 H VBG O2 Saturation 40.0 VBG Base Excess 7.4 Anion Gap Estim Creat Clear Calc Estimated GFR POC Glucose 130 H 162 H Fasting Glucose Calcium B-Natriuretic Peptide 11/01/21 13:12 MCV MCH MCHC RDW Plt Count MPV Absolute Nucleated RBC Nucleated RBC % (auto) Smear Path Review O2 Saturation 91.0 ABG pH at Pt Temp 7.37 ABG pCO2 at Pt Temp 56 H ABG pO2 at Pt Temp 65 L ABG HCO3 32 H ABG Base Excess (Actual) 6.1 VBG pH VBG pCO2 VBG pO2 VBG HCO3 VBG O2 Saturation VBG Base Excess Anion Gap Estim Creat Clear Calc Estimated GFR POC Glucose Fasting Glucose Calcium B-Natriuretic Peptide Assessment and Plan (1) Acute on chronic respiratory failure with hypoxia and hypercapnia: Status: Acute (2) Pneumonia: Status: Acute (3) Hypothermia: Status: Acute (4) Toxic metabolic encephalopathy: Status: Acute Plan 81M presented [place] [id number] Could be low commode reaction, associated with hypothermia Per Hugger placed Get ID evaluation acute on chronic hypoxic and hypercapneic respiratory failure 2/2 COPD, pneumonia intially improved, worsening since 10/30/21 placed on high flow (co2 washout, tolerate better than NIPPV) Appreciate pulmonology evaluation pending CT chest follow up vbg Toxic metabolic encephalopathy Restlessness, agitation Seems to be multifactorial, infection, antibiotics, steroids ABGs showing normal pH and CO2 As needed Haldol, start Seroquel Recurrent reorientation Consider changing cefepime and cut down the steroids as tolerated hypernatremia due to poor intake improved after d5w, Decrease IVF rate acute bacterial pneumonia for now on cefepime wean o2 as tolerated copd with acute decompensation steroids, bronchodilators acute on chronic systolic chf diuresed well, changed back to po lasix 20mg daily coreg pseudomonas bacturia in patient with chronic metzger possible UTI, patient unreliable with symptoms, continue cefepime hypokalemia, hypomagnesemia replaced,monitor dm insulin hld statin htn coreg urinary retention continue chronic metzger, flomax HALINA on CKD III monitor closely lung cancer outpatient follow up dvt prophylaxis - hep sq dnr/dni reason for continued hospitalization:ongoing hypoxia, altered mentation to wean down his oxygen down to baseline To prevent possible decompensation and to severe sepsis and hypoxic respiratory failure. Quality Stroke Does the patient have a stroke diagnosis?: No VTE Prior VTE?: No VTE Risk Level:: Medical - moderate - high VTE Device Contraindication: Treatment Not Indicated VTE Drug Contraindication: N/A - Med Ordered
--- NOTE | 2021-11-01 14:22 | MHC.CM.PN ---
Per ROUNDS discussion Patient is not yet medically cleared for dc r/t continued high flow O2. Returning to [facility] continue to be the goal and CM will continue to follow.
[2021-11-01] MEDS: Haloperidol Lactate 5 MG/ML VIAL 2 MG IM (15:33)
[2021-11-01 16:02] LABS: Glucose, Whole Blood 170 mg/dL (60-115)
[2021-11-01] MEDS: Insulin Lispro 100 UNIT/ML 3 ML VIAL SUBCUT ×2 (17:09→20:56)
[2021-11-01] MEDS: Magnesium Oxide 400 MG TABLET 800 MG PO (17:10)
[2021-11-01 19:31] LABS: Glucose, Whole Blood 175 mg/dL (60-115)
[2021-11-01] MEDS: Melatonin 3 MG TABLET 6 MG PO (22:06)
[2021-11-01] MEDS: Tamsulosin HCL 0.4 MG CAPSULE 0.8 MG PO (22:07)
[2021-11-01] MEDS: Atorvastatin Calcium 10 MG TABLET PO (22:07)
[2021-11-01] MEDS: guaiFENesin LA 600 MG TAB.ER.12H PO (22:07)
--- NOTE | 2021-11-01 22:18 | W.PM.IDCN ---
History of Present Illness Data of Consult Service Date: 11/01/21 Primary Care Provider: Chase Stallworth MD [facility] Reason for consult: shortness of breath She presents with less than one week shortness of breath. She has COPD Urine showe pseudomonas Review of Systems Review of Systems: Yes all other systems are reviewed and are negative [facility] Past Medical History Medical History CAD (coronary artery disease) Chronic respiratory failure with hypoxia Chronic systolic CHF (congestive heart failure) CKD (chronic kidney disease), stage III COPD (chronic obstructive pulmonary disease) Diabetes mellitus Gout Hypertension Squamous cell carcinoma of larynx Urinary retention Family History Family History Mother Breast cancer in situ Family history: reviewed and not pertinent Social History Social History Household Members: None Housing: Long-Term Do you presently have visiting nurse or other home services: No Unable to assess alcohol history related to: Unknown Alcohol intake: never Patient Tobacco Use Status: Former Tobacco user Substance Use Type: Unknown service: No Current occupational status: retired [employer] Allergies Allergy/AdvReac Type Severity Reaction Status Date / Time No Known Allergies Allergy Verified 10/25/21 04:04 Active Medications: Current Medications Acetaminophen (Acetaminophen 325 Mg Tablet) 650 mg PO Q6H PRN PRN Reason: Pain, Mild (Pain Scale 1-3) Last Admin: 10/31/21 09:45 Dose: 650 mg Albuterol Sulfate (Albuterol Sulfate 90 Mcg 8 Gm Inhaler) 1 puff INHALE Q4H PRN PRN Reason: Wheezing Albuterol/Ipratropium (Albuterol/Iprat 2.5/0.5mg 3 Ml Ampul.Neb) 3 ml INHALE RQ4H PRN PRN Reason: sob Last Admin: 10/31/21 14:18 Dose: 3 ml Atorvastatin Calcium (Atorvastatin Calcium 10 Mg Tablet) 10 mg PO BEDTIME [facility] Last Admin: 11/01/21 22:07 Dose: 10 mg Carvedilol (Carvedilol 6.25 Mg Tablet) 6.25 mg PO BID [facility]; Protocol Last Admin: 11/01/21 22:07 Dose: 6.25 mg Dextrose (Dextrose 50 % 25 Gm/50 Ml Syringe) 25 gm IVPUSH Q15M PRN; Protocol PRN Reason: per Hypoglycemia Standing Ord. Furosemide (Furosemide 20 Mg Tablet) 20 mg PO DAILY [facility]; Protocol Last Admin: 11/01/21 11:02 Dose: 20 mg Glucose (Glucose Gel 15 Gm Gel..Gram.) 15 gm PO Q15M PRN; Protocol PRN Reason: per Hypoglycemia Standing Ord. Guaifenesin (Guaifenesin La 600 Mg Tab.Er.12h) 600 mg PO BID [facility] Last Admin: 11/01/21 22:07 Dose: 600 mg Heparin Sodium (Porcine) (Heparin Sodium,Porcine 5,000 Unit/Ml Vial) 5,000 unit SUBCUT Q8H [facility] Last Admin: 11/01/21 22:06 Dose: 5,000 unit Doxycycline Hyclate 100 mg/ (Sodium Chloride) 250 mls @ 166.67 mls/hr IV Q12H [facility] Last Infusion: 11/01/21 17:10 Dose: Infused Meropenem 1 gm/ Sodium (Chloride) 100 mls @ 200 mls/hr IV Q12H [facility] Last Infusion: 11/01/21 18:03 Dose: Infused Insulin Human Lispro (Insulin Lispro 100 Unit/Ml 3 Ml Vial) 0 unit SUBCUT QIDACHS [facility]; Protocol Last Admin: 11/01/21 20:56 Dose: 2 unit Magnesium Oxide (Magnesium Oxide 400 Mg Tablet) 800 mg PO BIDPC [facility] Last Admin: 11/01/21 17:10 Dose: 800 mg Melatonin (Melatonin 3 Mg Tablet) 6 mg PO BEDTIME [facility] Last Admin: 11/01/21 22:06 Dose: 6 mg Methylprednisolone Sodium Succinate (Methylprednisolone Sod Succ 40 Mg/Ml Vial) 40 mg IVPUSH Q12H [facility] Last Admin: 11/01/21 13:13 Dose: 40 mg Multivitamins/Vitamin C (Multivitamin Tablet) 1 tab PO DAILY [facility] Last Admin: 11/01/21 12:23 Dose: Not Given Omeprazole (Omeprazole 20 Mg Capsule.Dr) 20 mg PO DAILY@0630 [facility] Last Admin: 11/01/21 06:46 Dose: Not Given Ondansetron HCl (Ondansetron Odt 4 Mg Tab.Rapdis) 4 mg TRANSLINGU Q8H PRN PRN Reason: Nausea Quetiapine Fumarate (Quetiapine Fumarate 25 Mg Tablet) 25 mg PO BID@0800,1700 [facility] Last Admin: 11/01/21 15:33 Dose: 25 mg Sodium Chloride (0.9 % Sodium Chloride Flush 3 Ml Syringe) 3 ml IVFLUSH QSHIFT [facility] Last Admin: 11/01/21 17:09 Dose: 3 ml Tamsulosin HCl (Tamsulosin Hcl 0.4 Mg Capsule) 0.8 mg PO BEDTIME [facility] Last Admin: 11/01/21 22:07 Dose: 0.8 mg Home Medications Medication Instructions Recorded Confirmed Last Taken Type albuterol sulfate 90 mcg/actuation 1 puff inhalation Q4H PRN Wheezing 10/25/21 10/25/21 Unknown History aerosol inhaler amlodipine 5 mg tablet 1 tab PO DAILY 10/25/21 10/25/21 Unknown History carvedilol 6.25 mg tablet 1 tab PO BID 10/25/21 10/25/21 Unknown History clonidine HCl 0.1 mg tablet 1 tab PO DAILY 10/25/21 10/25/21 Unknown History furosemide 20 mg tablet 20 mg PO DAILY 10/25/21 10/25/21 Unknown History insulin lispro 100 unit/mL 1 sliding scale dose subcut 10/25/21 10/25/21 Unknown History subcutaneous solution (Humalog USEASDIRECTD U-100 Insulin) isosorbide mononitrate 30 mg 1 tab PO DAILY 10/25/21 10/25/21 Unknown History tablet,extended release 24 hr melatonin 3 mg tablet 6 mg PO BEDTIME 10/25/21 10/25/21 Unknown History multivitamin 1 tab PO DAILY 10/25/21 10/25/21 Unknown History omeprazole 20 mg tablet,delayed 20 mg PO DAILY 10/25/21 10/25/21 Unknown History release ondansetron HCl 4 mg tablet 4 mg PO Q8H PRN Nausea 10/25/21 10/25/21 Unknown History simvastatin 20 mg tablet 20 mg PO BEDTIME 10/25/21 10/25/21 Unknown History tamsulosin 0.4 mg capsule 0.8 mg PO BEDTIME 10/25/21 10/25/21 Unknown History Physical Exam Vital Signs: Vital Signs: Last Vital Signs Temp 98.0 F 11/01/21 20:45 Pulse 74 11/01/21 20:45 Resp 18 11/01/21 20:45 BP 136/74 11/01/21 20:45 Pulse Ox 95 11/01/21 20:45 O2 Del Method 11/01/21 20:45 O2 Flow Rate 15 11/01/21 20:45 FiO2 50 11/01/21 04:00 Oxygen Flow Rate 10 10/25/21 03:55 BMI result Body Mass Index 24.6 Const: General: cooperative HEENT: Head: Yes normal to inspection Face and sinus: Yes normal facial exam Mouth: Normal oral and palatal mucosa present Teeth and gingiva: dentition normal Throat: Yes posterior oropharynx normal Eyes: General: appearance normal, both eyes and all related structures Pupils: Equal, round and reactive pupils present Resp: Effort & Inspection: tachypneic Cardio: Rate: regular rate Rhythm: regular rhythm GI: Palpation (GI): Soft to palpation and nontender : General: Yes no CVA tenderness Back/Spine/Pelvis: Back: no CVA tenderness Skin: General skin exam: no rashes or lesions noted Neuro: General: moves all extremities Cranial nerves: Yes Equal, round and reactive pupils present Extrem: General: Yes normal to inspection Psych: Appearance: grossly normal Results Labs CBC & Chem 7: 11/01/21 06:16 11/01/21 06:16 Labs: Short CBC 11/01/21 Range/Units 06:16 WBC 34.3 H* (4.8-10.8) X10*3/uL Hgb 12.2 L (14.0-18.0) g/dl Hct 39.4 L (42.0-52.0) % Plt Count 177 (160-400) X10*3/uL BMP 11/01/21 06:16 Sodium 141 Potassium 4.3 Chloride 100 Carbon Dioxide 33 H BUN 88 H Creatinine 2.24 H Calcium 8.6 Microbiology Microbiology Results: Microbiology 10/25/21 04:07 Blood - Venous Blood Culture - Final No growth after 5 days. 10/25/21 04:08 Blood - Venous Blood Culture - Final No growth after 5 days. 10/25/21 Unknown Urine clean catch - Urine knowles top Urine Culture - Final Pseudomonas aeruginosa Assessment and Plan (1) Toxic metabolic encephalopathy: Status: Acute He has encephalopathy possible due to aspiration pneumonia. He doesnt have any specific sputum production. Urine with Pseudomonas can be contaminant als0 (2) Hypothermia: Status: Acute Plan Would continue Cefepim and Flagyl total 3-7 daus
--- NOTE | 2021-11-01 22:51 | W.PM.IDCN ---
History of Present Illness Data of Consult Primary Care Provider: Chase Stallworth MD [facility] Past Medical History Medical History CAD (coronary artery disease) Chronic respiratory failure with hypoxia Chronic systolic CHF (congestive heart failure) CKD (chronic kidney disease), stage III COPD (chronic obstructive pulmonary disease) Diabetes mellitus Gout Hypertension Squamous cell carcinoma of larynx Urinary retention Family History Family History Mother Breast cancer in situ Family history: reviewed and not pertinent Social History Social History Household Members: None Housing: Fdc Do you presently have visiting nurse or other home services: No Unable to assess alcohol history related to: Unknown Alcohol intake: never Patient Tobacco Use Status: Former Tobacco user Substance Use Type: Unknown service: No Current occupational status: retired [employer] Allergies Allergy/AdvReac Type Severity Reaction Status Date / Time No Known Allergies Allergy Verified 10/25/21 04:04 Active Medications: Current Medications Acetaminophen (Acetaminophen 325 Mg Tablet) 650 mg PO Q6H PRN PRN Reason: Pain, Mild (Pain Scale 1-3) Last Admin: 10/31/21 09:45 Dose: 650 mg Albuterol Sulfate (Albuterol Sulfate 90 Mcg 8 Gm Inhaler) 1 puff INHALE Q4H PRN PRN Reason: Wheezing Albuterol/Ipratropium (Albuterol/Iprat 2.5/0.5mg 3 Ml Ampul.Neb) 3 ml INHALE RQ4H PRN PRN Reason: sob Last Admin: 10/31/21 14:18 Dose: 3 ml Atorvastatin Calcium (Atorvastatin Calcium 10 Mg Tablet) 10 mg PO BEDTIME [facility] Last Admin: 11/01/21 22:07 Dose: 10 mg Carvedilol (Carvedilol 6.25 Mg Tablet) 6.25 mg PO BID [facility]; Protocol Last Admin: 11/01/21 22:07 Dose: 6.25 mg Dextrose (Dextrose 50 % 25 Gm/50 Ml Syringe) 25 gm IVPUSH Q15M PRN; Protocol PRN Reason: per Hypoglycemia Standing Ord. Furosemide (Furosemide 20 Mg Tablet) 20 mg PO DAILY [facility]; Protocol Last Admin: 11/01/21 11:02 Dose: 20 mg Glucose (Glucose Gel 15 Gm Gel..Gram.) 15 gm PO Q15M PRN; Protocol PRN Reason: per Hypoglycemia Standing Ord. Guaifenesin (Guaifenesin La 600 Mg Tab.Er.12h) 600 mg PO BID [facility] Last Admin: 11/01/21 22:07 Dose: 600 mg Heparin Sodium (Porcine) (Heparin Sodium,Porcine 5,000 Unit/Ml Vial) 5,000 unit SUBCUT Q8H [facility] Last Admin: 11/01/21 22:06 Dose: 5,000 unit Doxycycline Hyclate 100 mg/ (Sodium Chloride) 250 mls @ 166.67 mls/hr IV Q12H [facility] Last Infusion: 11/01/21 17:10 Dose: Infused Meropenem 1 gm/ Sodium (Chloride) 100 mls @ 200 mls/hr IV Q12H [facility] Last Infusion: 11/01/21 18:03 Dose: Infused Insulin Human Lispro (Insulin Lispro 100 Unit/Ml 3 Ml Vial) 0 unit SUBCUT QIDACHS [facility]; Protocol Last Admin: 11/01/21 20:56 Dose: 2 unit Magnesium Oxide (Magnesium Oxide 400 Mg Tablet) 800 mg PO BIDPC [facility] Last Admin: 11/01/21 17:10 Dose: 800 mg Melatonin (Melatonin 3 Mg Tablet) 6 mg PO BEDTIME [facility] Last Admin: 11/01/21 22:06 Dose: 6 mg Methylprednisolone Sodium Succinate (Methylprednisolone Sod Succ 40 Mg/Ml Vial) 40 mg IVPUSH Q12H [facility] Last Admin: 11/01/21 13:13 Dose: 40 mg Multivitamins/Vitamin C (Multivitamin Tablet) 1 tab PO DAILY [facility] Last Admin: 11/01/21 12:23 Dose: Not Given Omeprazole (Omeprazole 20 Mg Capsule.Dr) 20 mg PO DAILY@0630 [facility] Last Admin: 11/01/21 06:46 Dose: Not Given Ondansetron HCl (Ondansetron Odt 4 Mg Tab.Rapdis) 4 mg TRANSLINGU Q8H PRN PRN Reason: Nausea Quetiapine Fumarate (Quetiapine Fumarate 25 Mg Tablet) 25 mg PO BID@0800,1700 [facility] Last Admin: 11/01/21 15:33 Dose: 25 mg Sodium Chloride (0.9 % Sodium Chloride Flush 3 Ml Syringe) 3 ml IVFLUSH QSHIFT [facility] Last Admin: 11/01/21 17:09 Dose: 3 ml Tamsulosin HCl (Tamsulosin Hcl 0.4 Mg Capsule) 0.8 mg PO BEDTIME [facility] Last Admin: 11/01/21 22:07 Dose: 0.8 mg Home Medications Medication Instructions Recorded Confirmed Last Taken Type albuterol sulfate 90 mcg/actuation 1 puff inhalation Q4H PRN Wheezing 10/25/21 10/25/21 Unknown History aerosol inhaler amlodipine 5 mg tablet 1 tab PO DAILY 10/25/21 10/25/21 Unknown History carvedilol 6.25 mg tablet 1 tab PO BID 10/25/21 10/25/21 Unknown History clonidine HCl 0.1 mg tablet 1 tab PO DAILY 10/25/21 10/25/21 Unknown History furosemide 20 mg tablet 20 mg PO DAILY 10/25/21 10/25/21 Unknown History insulin lispro 100 unit/mL 1 sliding scale dose subcut 10/25/21 10/25/21 Unknown History subcutaneous solution (Humalog USEASDIRECTD U-100 Insulin) isosorbide mononitrate 30 mg 1 tab PO DAILY 10/25/21 10/25/21 Unknown History tablet,extended release 24 hr melatonin 3 mg tablet 6 mg PO BEDTIME 10/25/21 10/25/21 Unknown History multivitamin 1 tab PO DAILY 10/25/21 10/25/21 Unknown History omeprazole 20 mg tablet,delayed 20 mg PO DAILY 10/25/21 10/25/21 Unknown History release ondansetron HCl 4 mg tablet 4 mg PO Q8H PRN Nausea 10/25/21 10/25/21 Unknown History simvastatin 20 mg tablet 20 mg PO BEDTIME 10/25/21 10/25/21 Unknown History tamsulosin 0.4 mg capsule 0.8 mg PO BEDTIME 10/25/21 10/25/21 Unknown History Physical Exam Vital Signs: Vital Signs: Last Vital Signs Temp 98.0 F 11/01/21 22:44 Pulse 76 11/01/21 22:44 Resp 18 11/01/21 22:44 BP 136/74 11/01/21 20:45 Pulse Ox 97 11/01/21 22:44 O2 Del Method 11/01/21 22:44 O2 Flow Rate 15 11/01/21 22:44 FiO2 50 11/01/21 04:00 Oxygen Flow Rate 10 10/25/21 03:55 BMI result Body Mass Index 24.6 Results Labs CBC & Chem 7: 11/01/21 06:16 11/01/21 06:16 Labs: Short CBC 11/01/21 Range/Units 06:16 WBC 34.3 H* (4.8-10.8) X10*3/uL Hgb 12.2 L (14.0-18.0) g/dl Hct 39.4 L (42.0-52.0) % Plt Count 177 (160-400) X10*3/uL BMP 11/01/21 06:16 Sodium 141 Potassium 4.3 Chloride 100 Carbon Dioxide 33 H BUN 88 H Creatinine 2.24 H Calcium 8.6 Microbiology Microbiology Results: Microbiology 10/25/21 04:07 Blood - Venous Blood Culture - Final No growth after 5 days. 10/25/21 04:08 Blood - Venous Blood Culture - Final No growth after 5 days. 10/25/21 Unknown Urine clean catch - Urine knowles top Urine Culture - Final Pseudomonas aeruginosa Assessment and Plan (1) Acute on chronic respiratory failure with hypoxia and hypercapnia: Status: Acute Plan Could also continue Merem and Doxycycline 3-5 days and Doxycycline for seven days
[2021-11-01] MEDS: Haloperidol Lactate 5 MG/ML VIAL IVPUSH (23:10)
[2021-11-02] VITALS (16 sets, daily range): BP systolic 86–131; BP diastolic 43–72; PULSE 49–98; RESP 16–32; TEMP 33.6–37.3; O2SAT 90–100
--- NOTE | 2021-11-02 | ECG_ITS ---
Test Reason : cp Blood Pressure : / mmHG Vent. Rate : 052 BPM Atrial Rate : 000 BPM P-R Int : 000 ms QRS Dur : 224 ms QT Int : 542 ms P-R-T Axes : 000 -25 149 degrees QTc Int : 504 ms Wide QRS rhythm Abnormal ECG When compared with ECG of 01-NOV-2021 22:43, Rhythm change Referred By: Filipe Quinones Electronically Signed By:PAOLO BYNUM
[2021-11-02] MEDS: methylPREDNISolone Sod Succ 40 MG/ML VIAL IVPUSH ×2 (00:14→11:48)
[2021-11-02] MEDS: 0.9 % Sodium Chloride Flush 3 ML SYRINGE IVFLUSH ×3 (00:14→17:18)
--- NOTE | 2021-11-02 03:26 | PC.NURSE ---
Pt agitated, combative, attempting to get out of bed and pulling of non-rebreather mask/IV/metzger with contstant redirection. Security called for assistance. Soft wrist restraints applied at 20:45. MD assessed patient and signed restraints form. Pt assessed every 2 hours-see form for charting. Due to patients agitation, staff was unable to obtain BP every 2 hours, however, O2 sats and HR were assessed Q2-see charting under vital signs. Pt continues to pull telemetry off even while in restraints. Will continue to monitor.
[2021-11-02] MEDS: Omeprazole 20 MG CAPSULE.DR PO (06:10)
[2021-11-02] MEDS: LORazepam 2 MG/ML VIAL 0.5 MG IM (06:10)
[2021-11-02] MEDS: traZODone HCL 50 MG TABLET PO (06:10)
[2021-11-02] MEDS: Heparin Sodium,Porcine 5,000 UNIT/ML VIAL 5000 UNIT SUBCUT ×3 (06:11→22:13)
[2021-11-02 06:28] LABS: Hematocrit 33.8 % (42.0-52.0); Hemoglobin 10.3 g/dl (14.0-18.0); Mean Corpuscular HGB Conc 30.5 g/dl (31.0-36.0); Mean Corpuscular Hemoglobin 28.5 pg (27.0-33.0); Mean Corpuscular Volume 93.4 fL (80.0-98.0); Mean Platelet Volume 11.7 fL (9.4-12.4); Platelet Count 139 X10*3/uL (160-400); Red Blood Count 3.62 X10*6/uL (4.60-5.80); Red Cell Distribution Width 13.8 % (11.0-16.0); White Blood Count 21.4 X10*3/uL (4.8-10.8)
[2021-11-02 07:23] LABS: Anion Gap 12 (12-20); Blood Urea Nitrogen 101 mg/dL (9-16); Calcium 8.3 mg/dL (8.4-10.2); Carbon Dioxide 32 mmol/L (22-29); Chloride 104 mmol/L (96-108); Creatinine Clr Calc Pharmacy 25.1; Estimated Glomerular Filt Rate 26; Glucose Random 190 mg/dL (60-115); Potassium 4.3 mmol/L (3.3-5.1); Sodium 144 mmol/L (135-145)
[2021-11-02 07:43] LABS: Glucose, Whole Blood 182 mg/dL (60-115)
--- NOTE | 2021-11-02 08:33 | P.CDIC_ITS ---
CDI Concurrent Query Documentation Clarification: PHYSICIAN'S DOCUMENTATION REQUEST Date of Query: 11/02/21 0834 Patient Name: Luigi Moore Admit Date: 10/25/21 Dear Doctor, A review of the medical record indicates additional documentation may be indicated. Please review below and update the documentation accordingly. Clinical Indicators: Current documentation includes a diagnosis of UTI. Additional clinical indicators in the record include: Risk Factors/Clinical Indicators/Treatments Possible UTI, chronic metzger catheter. UA + nitrite + leukocyte 3+ cloudy urine IV Cefepime Please provide further specificity regarding the site, etiology, acuity, and known or suspected organism: UTI due to, associated with etc. * Indicate if associated with a device, specify if Metzger cath, suprapubic cath, etc. or other etiology * UTI ruled out, etc. * Please note any possible, suspected etc. organism * E coli * Pseudomanas aeuginosa * Other or undetermined Use of terms such as suspected, likely, concern for, or probable (associated with a specific diagnosis that is being evaluated, monitored, or treated as if it exists) are acceptable and can be coded in the inpatient setting, when documented at the time of discharge. Thank you, [facility], CDIS Extension: [phone] Please use your independent medical judgment in providing your response. THIS QUERY IS PART OF THE PERMANENT MEDICAL RECORD Provider Response: Other Other Diagnosis: UTI associated to chronic Metzger catheter
--- NOTE | 2021-11-02 10:49 | P.PNPL_ITS ---
Subjective Subjective Date of Service: 11/02/21 Interval history: The patient was seen on exam. He has been more confused lately he still has some 1-1 and also is physically restrain. He had a blood gas yesterday demonstrating acute on chronic acidosis and subsequently repeat ABG was co nsistent with chronic respiratory acidosis. The patient has not been able to get his CT scan of the chest because he has not been cooperating. This morning I saw him seem to be resisting me but not vocalizing any worse. His pupils appear to be pinpointed. He has significant comorbidities including lung cancer pleural effusion pneumonia in addition to the UTI. Patient appears to be very decondition. His condition appears to be getting worse. He did have repeat chest x-ray personally by me demonstrating worsening bilateral airspace disease. Objective Data Labs CBC & Chem 7: 11/02/21 06:13 11/02/21 06:13 Labs: Laboratory Results - last 24 hr 11/01/21 11/01/21 11/01/21 11:34 13:12 15:55 WBC RBC Hgb Hct MCV MCH MCHC RDW Plt Count MPV Absolute Nucleated RBC Nucleated RBC % (auto) O2 Saturation 91.0 ABG pH at Pt Temp 7.37 ABG pCO2 at Pt Temp 56 H ABG pO2 at Pt Temp 65 L ABG HCO3 32 H ABG Base Excess (Actual) 6.1 Sodium Potassium Chloride Carbon Dioxide Anion Gap BUN Creatinine Estim Creat Clear Calc Estimated GFR POC Glucose 162 H 170 H Random Glucose Calcium 11/01/21 11/02/21 11/02/21 19:25 06:13 06:13 WBC 21.4 H RBC 3.62 L Hgb 10.3 L Hct 33.8 L MCV 93.4 MCH 28.5 MCHC 30.5 L RDW 13.8 Plt Count 139 L MPV 11.7 Absolute Nucleated RBC 0.000 Nucleated RBC % (auto) 0.0 O2 Saturation ABG pH at Pt Temp ABG pCO2 at Pt Temp ABG pO2 at Pt Temp ABG HCO3 ABG Base Excess (Actual) Sodium 144 Potassium 4.3 Chloride 104 Carbon Dioxide 32 H Anion Gap 12 BUN 101 H Creatinine 2.38 H Estim Creat Clear Calc 25.1 Estimated GFR 26 POC Glucose 175 H Random Glucose 190 H Calcium 8.3 L 11/02/21 07:23 WBC RBC Hgb Hct MCV MCH MCHC RDW Plt Count MPV Absolute Nucleated RBC Nucleated RBC % (auto) O2 Saturation ABG pH at Pt Temp ABG pCO2 at Pt Temp ABG pO2 at Pt Temp ABG HCO3 ABG Base Excess (Actual) Sodium Potassium Chloride Carbon Dioxide Anion Gap BUN Creatinine Estim Creat Clear Calc Estimated GFR POC Glucose 182 H Random Glucose Calcium Microbiology Microbiology Results: Microbiology 10/25/21 04:07 Blood - Venous Blood Culture - Final No growth after 5 days. 10/25/21 04:08 Blood - Venous Blood Culture - Final No growth after 5 days. 10/25/21 Unknown Urine clean catch - Urine knowles top Urine Culture - Final Pseudomonas aeruginosa Review of Systems Review of Systems Yes Unobtainable due to mental status Reports confusion Psychiatric: Reports confusion Physical Exam Vital Signs: Vital Signs: Last Vital Signs Temp 97.8 F 11/02/21 06:40 Pulse 68 11/02/21 07:21 Resp 18 11/02/21 07:21 BP 131/67 11/02/21 07:21 Pulse Ox 100 11/02/21 07:21 O2 Del Method 11/02/21 07:21 O2 Flow Rate 15 11/02/21 07:21 FiO2 50 11/01/21 04:00 Oxygen Flow Rate 10 10/25/21 03:55 BMI result Body Mass Index 24.6 Const: General: combative, confusion and lethargic Orientation/consciousness: confusion and lethargic HEENT: Head: Yes normal to inspection and Yes atraumatic Eyes: General: appearance normal, both eyes and all related structures Pupils: Equal, round and reactive pupils present Neck: Neck: Yes no lymphadenopathy, Yes trachea midline and Yes supple Chest: Chest palpation & inspection: normal inspection of the chest Resp: Auscultation: diminished lung sounds Cardio: Rate: regular rate Rhythm: regular rhythm Heart sounds: S1 normal heart sound present, S2 normal heart sound present and no murmurs GI: Inspection: Yes normal to inspection Palpation (GI): Soft to palpation, nontender and no guarding Auscultation: normal bowel sounds : General: Yes no CVA tenderness Back/Spine/Pelvis: Back: no CVA tenderness Skin: General skin exam: no rashes or lesions noted Neuro: General: confusion Cranial nerves: Yes CN's II-XII intact bilaterally and Yes Equal, round and reactive pupils present Cognition (Neuro): normal cognition Motor exam (neuro): 5/5 motor strength present throughout Extrem: Other: Trace to 1+ pitting edema bilaterally symmetric Psych: Appearance: grossly normal Affect: normal affect Attitude: cooperative Procedures Date of Service Date of Service: 11/02/21 Assessment and Plan Assessment and plan (1) Toxic metabolic encephalopathy: Status: Acute (2) Acute on chronic respiratory failure with hypoxia and hypercapnia: Status: Acute (3) Pneumonia: Status: Acute (4) Squamous cell carcinoma of lung, stage I: Status: Acute Plan The patient has worsening respiratory failure now on non-rebreather. He also is having worsening mentation. I did try to talk to the proxy, Ashly. I did have left 2 messages without any call back. I did request that she call the hospital. In the meantime the patient's condition is worsening. He is already on broad-spectrum antibiotics. He is not able to get a CT scan because of his altered mental status. His chest x-ray demonstrated interval worsening of the airspace disease. He is a DNR. Recommendations: Repeat ABG Continue broad-spectrum antibiotics Toxic metabolic panel should be done Goals of care should be addressed with the patient's proxy His condition continues to be guarded. Time Spent With Patient Time: Total time spent is greater than 50% in coordination of care (as documented) at patient's floor/unit and/or counseling patient: Progress Note: Quality Stroke Does the patient have a stroke diagnosis?: No
[2021-11-02] MEDS: Piperacillin Sodium/Tazobactam 2.25 GM in 0.9 % Sodium Chloride 50 ML IV ×3 (11:45→22:14)
[2021-11-02 11:50] LABS: Glucose, Whole Blood 165 mg/dL (60-115)
[2021-11-02 12:12] LABS: ABG Base Excess 2.8 mmol/L; ABG HCO3 33 mmol/L (22-26); ABG pCO2 84 mmHg (32-45); ABG pH 7.19 (7.35-7.45); ABG pO2 81 mmHg (83-108)
[2021-11-02] MEDS: Doxycycline Hyclate 100 MG in 0.9 % Sodium Chloride 250 ML 116.67 MG IV (12:48)
--- NOTE | 2021-11-02 13:33 | P.PNIM_ITS ---
Subjective Subjective Date of Service: 11/02/21 Interval History: the patient was seen and evaluated this morning altered mentation this morning but still fighting the oxygen mask ABG done showing hypercapnia still hypothermic overnight requiring Bear Hugger No other overnight events Review of Systems Review of Systems: Yes Unobtainable due to mental status Physical Exam Vital Signs: Vital Signs: Last Vital Signs Temp 92.5 F L 11/02/21 11:16 Pulse 60 11/02/21 11:16 Resp 32 H 11/02/21 12:26 BP 86/43 L 11/02/21 11:16 Pulse Ox 92 11/02/21 11:16 O2 Del Method Non-Rebreather Ma sk 11/02/21 11:16 O2 Flow Rate 50 11/02/21 11:16 FiO2 95 11/02/21 11:16 Oxygen Flow Rate 10 10/25/21 03:55 BMI result Body Mass Index 24.6 Const: Other: Constitutional : altered mentation, pupil constriction bilaterally, restless and agitated Neck : Normal inspection, Supple Cardiovascular : RRR, no JVP, no lower extremity edema Respiratory : decreased bilateral air entry with expiratory wheezes scattered Gastrointestinal: soft, lax, Normal bowel sounds, Non tender Skin : Warm, Dry Neurological : altered mentation, unable to assess any focal deficit Objective Data Active Medications Acetaminophen (Acetaminophen 325 Mg Tablet) 650 mg PO Q6H PRN PRN Reason: Pain, Mild (Pain Scale 1-3) Last Admin: 10/31/21 09:45 Dose: 650 mg Documented By: PARMINDER Albuterol Sulfate (Albuterol Sulfate 90 Mcg 8 Gm Inhaler) 1 puff INHALE Q4H PRN PRN Reason: Wheezing Albuterol/Ipratropium (Albuterol/Iprat 2.5/0.5mg 3 Ml Ampul.Neb) 3 ml INHALE RQ4H PRN PRN Reason: sob Last Admin: 10/31/21 14:18 Dose: 3 ml Documented By: ROSHAN Atorvastatin Calcium (Atorvastatin Calcium 10 Mg Tablet) 10 mg PO BEDTIME YIN Last Admin: 11/01/21 22:07 Dose: 10 mg Documented By: MARIA G Carvedilol (Carvedilol 6.25 Mg Tablet) 6.25 mg PO BID YIN; Protocol Last Admin: 11/02/21 12:25 Dose: Not Given Documented By: RONAN Non-Admin Reason: unable to swallow medications Dextrose (Dextrose 50 % 25 Gm/50 Ml Syringe) 25 gm IVPUSH Q15M PRN; Protocol PRN Reason: per Hypoglycemia Standing Ord. Furosemide (Furosemide 20 Mg Tablet) 20 mg PO DAILY [facility]; Protocol Last Admin: 11/02/21 12:25 Dose: Not Given Documented By: RONAN Non-Admin Reason: unable to swallow medications Glucose (Glucose Gel 15 Gm Gel..Gram.) 15 gm PO Q15M PRN; Protocol PRN Reason: per Hypoglycemia Standing Ord. Guaifenesin (Guaifenesin La 600 Mg Tab.Er.12h) 600 mg PO BID [facility] Last Admin: 11/02/21 12:25 Dose: Not Given Documented By: RONAN Non-Admin Reason: unable to swallow medications Heparin Sodium (Porcine) (Heparin Sodium,Porcine 5,000 Unit/Ml Vial) 5,000 unit SUBCUT Q8H [facility] Last Admin: 11/02/21 11:48 Dose: 5,000 unit Documented By: RONAN Doxycycline Hyclate 100 mg/ (Sodium Chloride) 250 mls @ 166.67 mls/hr IV Q12H [facility] Last Admin: 11/02/21 12:48 Dose: 116.67 mls/hr Documented By: RONAN Piperacillin Sod/Tazobactam (Sod 2.25 gm/ Sodium Chloride) 50 mls @ 100 mls/hr IV Q6H [facility] Last Infusion: 11/02/21 12:54 Dose: 0 mls/hr Documented By: RONAN Insulin Human Lispro (Insulin Lispro 100 Unit/Ml 3 Ml Vial) 0 unit SUBCUT QIDACHS [facility]; Protocol Last Admin: 11/02/21 12:54 Dose: Not Given Documented By: RONAN Non-Admin Reason: pt unable to eat lunch Magnesium Oxide (Magnesium Oxide 400 Mg Tablet) 800 mg PO BIDPC [facility] Last Admin: 11/02/21 11:57 Dose: Not Given Documented By: RONAN Non-Admin Reason: unable to swallow medications Melatonin (Melatonin 3 Mg Tablet) 6 mg PO BEDTIME [facility] Last Admin: 11/01/21 22:06 Dose: 6 mg Documented By: MARIA G Methylprednisolone Sodium Succinate (Methylprednisolone Sod Succ 40 Mg/Ml Vial) 40 mg IVPUSH Q12H [facility] Last Admin: 11/02/21 11:48 Dose: 40 mg Documented By: RONAN Morphine Sulfate (Morphine Sulfate 2 Mg/Ml Cartridge) 2 mg IVPUSH Q4H PRN; Protocol PRN Reason: Shortness of Breath Multivitamins/Vitamin C (Multivitamin Tablet) 1 tab PO DAILY [facility] Last Admin: 11/02/21 12:25 Dose: Not Given Documented By: RONAN Non-Admin Reason: V Omeprazole (Omeprazole 20 Mg Capsule.Dr) 20 mg PO DAILY@0630 [facility] Last Admin: 11/02/21 06:10 Dose: 20 mg Documented By: MARIA G Ondansetron HCl (Ondansetron Odt 4 Mg Tab.Rapdis) 4 mg TRANSLINGU Q8H PRN PRN Reason: Nausea Quetiapine Fumarate (Quetiapine Fumarate 50 Mg Tablet) 50 mg PO DAILY@1700 [facility] Sodium Chloride (0.9 % Sodium Chloride Flush 3 Ml Syringe) 3 ml IVFLUSH QSHIFT [facility] Last Admin: 11/02/21 11:45 Dose: 3 ml Documented By: RONAN Tamsulosin HCl (Tamsulosin Hcl 0.4 Mg Capsule) 0.8 mg PO BEDTIME [facility] Last Admin: 11/01/21 22:07 Dose: 0.8 mg Documented By: MARIA G Labs CBC & Chem 7: 11/02/21 06:13 11/02/21 06:13 Labs: Laboratory Results - last 24 hr 11/01/21 11/01/21 11/02/21 15:55 19:25 06:13 MCV 93.4 MCH 28.5 MCHC 30.5 L RDW 13.8 Plt Count 139 L MPV 11.7 Absolute Nucleated RBC 0.000 Nucleated RBC % (auto) 0.0 O2 Saturation ABG pH at Pt Temp ABG pCO2 at Pt Temp ABG pO2 at Pt Temp ABG HCO3 ABG Base Excess (Actual) Anion Gap Estim Creat Clear Calc Estimated GFR POC Glucose 170 H 175 H Random Glucose Calcium 11/02/21 11/02/21 11/02/21 06:13 07:23 11:17 MCV MCH MCHC RDW Plt Count MPV Absolute Nucleated RBC Nucleated RBC % (auto) O2 Saturation ABG pH at Pt Temp ABG pCO2 at Pt Temp ABG pO2 at Pt Temp ABG HCO3 ABG Base Excess (Actual) Anion Gap 12 Estim Creat Clear Calc 25.1 Estimated GFR 26 POC Glucose 182 H 165 H Random Glucose 190 H Calcium 8.3 L 11/02/21 12:06 MCV MCH MCHC RDW Plt Count MPV Absolute Nucleated RBC Nucleated RBC % (auto) O2 Saturation 94.0 ABG pH at Pt Temp 7.19 L* ABG pCO2 at Pt Temp 84 H* ABG pO2 at Pt Temp 81 L ABG HCO3 33 H ABG Base Excess (Actual) 2.8 Anion Gap Estim Creat Clear Calc Estimated GFR POC Glucose Random Glucose Calcium Assessment and Plan (1) Toxic metabolic encephalopathy: Status: Acute (2) Acute on chronic respiratory failure with hypoxia and hypercapnia: Status: Acute (3) Pneumonia: Status: Acute Plan 81M presented with sob leukocytosis WBCs a drop down to 26,000 Could be leukemoid reaction, worsening infection associated with hypothermia Per Hugger placed id input appreciated, can use meropenem with Flagyl of Zosyn acute on chronic hypoxic and hypercapneic respiratory failure 2/2 COPD, pneumonia ABG showing hypercapnia this morning Start BiPAP pulmonology input appreciated pending CT chest prognosis poor at this stage unless he improves with the BiPAP Toxic metabolic encephalopathy Restlessness, agitation Seems to be multifactorial, infection, antibiotics, steroids , hypercapnia continue BiPAP for now p.r.n. Seroquel Recurrent reorientation Consider changing cefepime and cut down the steroids as tolerated hypernatremia Improved, DC fluids acute bacterial pneumonia continues also wean o2 as tolerated copd with acute decompensation steroids, bronchodilators acute on chronic systolic chf diuresed well, changed back to po lasix 20mg daily coreg pseudomonas bacturia in patient with chronic metzger continue Zosyn hypokalemia, hypomagnesemia replaced,monitor dnr/dni discussed with his daughter and HCP who recommended to continue BiPAP with no her awake measures to be done she. reason for continued hospitalization:ongoing hypoxia, altered mentation to wean down his oxygen down to baseline To treat respiratory failure and hypercapnia Quality Stroke Does the patient have a stroke diagnosis?: No VTE Prior VTE?: No VTE Risk Level:: Medical - moderate - high VTE Device Contraindication: Treatment Not Indicated VTE Drug Contraindication: N/A - Med Ordered
[2021-11-02 13:59] LABS: ABG Refer to POC result
[2021-11-02] MEDS: Morphine Sulfate 2 MG/ML CARTRIDGE IVPUSH (14:22)
[2021-11-02 17:26] LABS: Glucose, Whole Blood 159 mg/dL (60-115)
[2021-11-02 18:08] LABS: ABG Base Excess 4.4 mmol/L; ABG HCO3 32 mmol/L (22-26); ABG pCO2 70 mmHg (32-45); ABG pH 7.27 (7.35-7.45); ABG pO2 110 mmHg (83-108)
[2021-11-02 19:20] LABS: ABG Refer to POC result
[2021-11-02 20:48] LABS: Glucose, Whole Blood 145 mg/dL (60-115)
[2021-11-02] MEDS: Atropine Sulfate 1 MG/ML VIAL 0.5 MG IVPUSH (22:55)
--- NOTE | 2021-11-02 23:02 | ECG_ITS ---
Test Reason : cp Blood Pressure : / mmHG Vent. Rate : 072 BPM Atrial Rate : 072 BPM P-R Int : 200 ms QRS Dur : 136 ms QT Int : 414 ms P-R-T Axes : 054 016 227 degrees QTc Int : 453 ms Sinus rhythm with frequent Premature ventricular complexes Left ventricular hypertrophy with QRS widening and repolarization abnormality ( Sokolow-Milligan ) Cannot rule out Inferior infarct (cited on or before 01-NOV-2021) Abnormal ECG When compared with ECG of 01-NOV-2021 22:43, No significant changes seen Referred By: Codi Howard Electronically Signed By:PAOLO BYNUM
--- NOTE | 2021-11-02 23:40 | PM.EVENT ---
Event Note Date of Service: 11/17/21 Event Note: Pt HR dropping to the 20s while sleeping. pt denies any symptoms. EKG shows wide comples qrs and left bundle branch block. will obtain trop. Pt is DNR /DNR, atropin PRN. Vitals otherwise stable
[2021-11-03 00:24] LABS: Troponin-I High Sensitivity 80.3 ng/L (<3.5-35.0)
[2021-11-03 00:45] LABS: Anion Gap 13 (12-20); Blood Urea Nitrogen 116 mg/dL (9-16); Calcium 8.1 mg/dL (8.4-10.2); Carbon Dioxide 35 mmol/L (22-29); Chloride 103 mmol/L (96-108); Estimated Glomerular Filt Rate 18; Glucose Random 157 mg/dL (60-115); Magnesium 2.6 mg/dL (1.6-2.6); Potassium 6.2 mmol/L (3.3-5.1); Sodium 145 mmol/L (135-145)
[2021-11-03] MEDS: Dextrose 50 % 25 GM/50 ML SYRINGE IVPUSH (01:29)
[2021-11-03] MEDS: Insulin Lispro 100 UNIT/ML 3 ML VIAL SUBCUT (01:29)
[2021-11-03] MEDS: Doxycycline Hyclate 100 MG in 0.9 % Sodium Chloride 250 ML 166.67 MG IV (01:30)
[2021-11-03] MEDS: 0.9 % Sodium Chloride Flush 3 ML SYRINGE IVFLUSH ×2 (01:31→09:55)
[2021-11-03] MEDS: methylPREDNISolone Sod Succ 40 MG/ML VIAL IVPUSH (01:31)
[2021-11-03] MEDS: Calcium Gluconate/NaCl,Iso-Osm 2 GM/100 ML PLAST..BAG IV (03:18)
[2021-11-03] MEDS: Albuterol Sulfate (0.083%) 2.5 MG/3 ML VIAL.NEB 5 MG INHALE (05:39)
[2021-11-03] MEDS: Heparin Sodium,Porcine 5,000 UNIT/ML VIAL 5000 UNIT SUBCUT (05:54)
[2021-11-03] MEDS: Piperacillin Sodium/Tazobactam 2.25 GM in 0.9 % Sodium Chloride 50 ML IV (05:54)
[2021-11-03 07:18] VITALS: PULSE 40; RESP 12; O2SAT 100
[2021-11-03 07:39] VITALS: PULSE 43; RESP 12; O2SAT 100
--- NOTE | 2021-11-03 07:42 | PC.NURSE ---
Pt HR 38, patient had pause of asystole, atropine 0.5 mg IVP prn for HR <40 for greater than 30 seconds given. Nursing food service kitchen supervisor and MD aware. Pt HR increased to 68 bpm. respiratory therapy and MD at patient bedside.
[2021-11-03] MEDS: Atropine Sulfate 1 MG/ML VIAL 0.5 MG IVPUSH (07:45)
[2021-11-03 07:47] VITALS: BP 84/58; PULSE 68; RESP 13; O2SAT 82
[2021-11-03 07:51] LABS: Glucose, Whole Blood 124 mg/dL (60-115)
[2021-11-03] MEDS: 0.9 % Sodium Chloride 1,000 ML 999 ML IV (08:01)
[2021-11-03] MEDS: Dextrose 5 % and 0.9 % NaCl 1,000 ML 80 ML IVCONT (09:55)
--- NOTE | 2021-11-03 12:06 | MHC.CM.PN ---
Per ROUNDS discussion, Patient is now ORDINARY SEAMAN.
--- NOTE | 2021-11-03 13:02 | P.PNPL_ITS ---
Subjective Subjective Date of Service: 11/03/21 Interval history: The patient was seen on exam. Currently on BiPAP. He is completely somnolent. His family is at his bedside. They are considering FLOAT PHLEBOTOMIST. I did support that decision. The patient is gravely ill and has multiple comorbidities. Now with significant respiratory failure. Once the patient is comfortable and he is FLOAT PHLEBOTOMIST then he can be taken off the BiPAP and placed on oxygen for comfort. I did talk to the family and answer other questions. Objective Data Labs CBC & Chem 7: 11/02/21 06:13 11/02/21 23:53 Labs: Laboratory Results - last 24 hr 11/02/21 11/02/21 11/02/21 17:15 18:05 20:45 O2 Saturation 99.0 ABG pH at Pt Temp 7.27 L ABG pCO2 at Pt Temp 70 H* ABG pO2 at Pt Temp 110 H ABG HCO3 32 H ABG Base Excess (Actual) 4.4 Sodium Potassium Chloride Carbon Dioxide Anion Gap BUN Creatinine Estim Creat Clear Calc Estimated GFR POC Glucose 159 H 145 H Random Glucose Calcium Magnesium Troponin I High Sens 11/02/21 11/02/21 11/03/21 23:53 23:53 07:24 O2 Saturation ABG pH at Pt Temp ABG pCO2 at Pt Temp ABG pO2 at Pt Temp ABG HCO3 ABG Base Excess (Actual) Sodium 145 Potassium 6.2 H* D Chloride 103 Carbon Dioxide 35 H Anion Gap 13 BUN 116 H Creatinine 3.32 H Estim Creat Clear Calc 18.0 Estimated GFR 18 POC Glucose 124 H Random Glucose 157 H Calcium 8.1 L Magnesium 2.6 Troponin I High Sens 80.3 H D Microbiology Microbiology Results: Microbiology 10/25/21 04:07 Blood - Venous Blood Culture - Final No growth after 5 days. 10/25/21 04:08 Blood - Venous Blood Culture - Final No growth after 5 days. 10/25/21 Unknown Urine clean catch - Urine knowles top Urine Culture - Final Pseudomonas aeruginosa Review of Systems Review of Systems Yes Unobtainable due to mental status Physical Exam Vital Signs: Vital Signs: Last Vital Signs Temp 99.1 F 11/02/21 20:00 Pulse 68 11/03/21 07:47 Resp 13 11/03/21 07:47 BP 84/58 L 11/03/21 07:47 Pulse Ox 82 L 11/03/21 07:47 O2 Del Method 11/03/21 07:47 O2 Flow Rate 100 11/02/21 20:00 FiO2 95 11/02/21 11:16 Oxygen Flow Rate 10 10/25/21 03:55 BMI result Body Mass Index 24.6 Const: Other: Constitutional : altered mentation, pupil constriction bilaterally, restless and agitated Neck : Normal inspection, Supple Cardiovascular : RRR, no JVP, no lower extremity edema Respiratory : decreased bilateral air entry with expiratory wheezes scattered Gastrointestinal: soft, lax, Normal bowel sounds, Non tender Skin : Warm, Dry Neurological : altered mentation, unable to assess any focal deficit Procedures Date of Service Date of Service: 11/03/21 Assessment and Plan Assessment and plan (1) Toxic metabolic encephalopathy: Status: Acute (2) Acute on chronic respiratory failure with hypoxia and hypercapnia: Status: Acute (3) Pneumonia: Status: Acute (4) Squamous cell carcinoma of lung, stage I: Status: Acute Plan The patient is worsening respiratory failure now family considering CM0 Recommendations: Agree with FLOAT PHLEBOTOMIST status Continue BiPAP once the patient is comfortable on FLOAT PHLEBOTOMIST should titrate to nasal cannula to provide comfort Time Spent With Patient Time: Total time spent is greater than 50% in coordination of care (as documented) at patient's floor/unit and/or counseling patient: Progress Note: Quality Stroke Does the patient have a stroke diagnosis?: No
[2021-11-03 13:17] VITALS: RESP 19
[2021-11-03] MEDS: Morphine Sulfate 2 MG/ML CARTRIDGE 4 MG IVPUSH (13:17)
--- NOTE | 2021-11-03 14:18 | PC.NURSE ---
Pt is [employer]. discussed with family and family/HCP decision is to remove Bipap. Pt given Morphine 4mg IVP and respiratory therapy removed Bipap 14:18. Pt is now on room air. HR 57 RR 19
--- NOTE | 2021-11-03 14:19 | P.PNIM_ITS ---
Subjective Subjective Date of Service: 11/03/21 Interval History: family at the bedside in the morning , discussed changing status to comfort measures only Patient on BiPAP overnight Drop in blood pressure this morning, started on IV bolus Review of Systems Review of Systems: Yes Unobtainable due to mental status Physical Exam Vital Signs: Vital Signs: Last Vital Signs Temp 99.1 F 11/02/21 20:00 Pulse 68 11/03/21 07:47 Resp 19 11/03/21 13:17 BP 84/58 L 11/03/21 07:47 Pulse Ox 82 L 11/03/21 07:47 O2 Del Method 11/03/21 07:47 O2 Flow Rate 100 11/02/21 20:00 FiO2 95 11/02/21 11:16 Oxygen Flow Rate 10 10/25/21 03:55 BMI result Body Mass Index 24.6 Const: Other: comfort care, on BiPAP Objective Data Active Medications Acetaminophen (Acetaminophen 325 Mg Tablet) 650 mg PO Q6H PRN PRN Reason: Pain, Mild (Pain Scale 1-3) Last Admin: 10/31/21 09:45 Dose: 650 mg Documented By: PARMINDER Lorazepam (Lorazepam 2 Mg/Ml Vial) 1 mg IVPUSH Q6H PRN PRN Reason: anxiety/restlessness Morphine Sulfate (Morphine Sulfate 2 Mg/Ml Cartridge) 4 mg IVPUSH Q4H PRN; Protocol PRN Reason: Shortness of Breath Last Admin: 11/03/21 13:17 Dose: 4 mg Documented By: RONAN Sodium Chloride (0.9 % Sodium Chloride Flush 3 Ml Syringe) 3 ml [facility] Last Admin: 11/03/21 09:55 Dose: 3 ml Documented By: RONAN Labs CBC & Chem 7: 11/02/21 06:13 11/02/21 23:53 Labs: Laboratory Results - last 24 hr 11/02/21 11/02/21 11/02/21 17:15 18:05 20:45 O2 Saturation 99.0 ABG pH at Pt Temp 7.27 L ABG pCO2 at Pt Temp 70 H* ABG pO2 at Pt Temp 110 H ABG HCO3 32 H ABG Base Excess (Actual) 4.4 Anion Gap Estim Creat Clear Calc Estimated GFR POC Glucose 159 H 145 H Random Glucose Calcium Magnesium Troponin I High Sens 11/02/21 11/02/21 11/03/21 23:53 23:53 07:24 O2 Saturation ABG pH at Pt Temp ABG pCO2 at Pt Temp ABG pO2 at Pt Temp ABG HCO3 ABG Base Excess (Actual) Anion Gap 13 Estim Creat Clear Calc 18.0 Estimated GFR 18 POC Glucose 124 H Random Glucose 157 H Calcium 8.1 L Magnesium 2.6 Troponin I High Sens 80.3 H D Assessment and Plan (1) Toxic metabolic encephalopathy: Status: Acute (2) Acute on chronic respiratory failure with hypoxia and hypercapnia: Status: Acute Plan 81M with pmh including chronic hypoxic respiratory failure on 3 L home O2 due to history of COPD and chronic systolic CHF as well as recent diagnosis of squamous cell lung cancer, presented with shortness of breath. was treated for pneumonia and COPD exacerbation with IV antibiotics, steroids and nebulizers but continued to require more oxygen supplement with altered mentation. Developed acute hypercapnic hypoxic respiratory failure requiring BiPAP with no significant improvement in the clinical status. discussed with his healthcare proxy with decided to change his status to comfort measures only. acute on chronic hypoxic and hypercapneic respiratory failure 2/2? COPD, pneumonia Toxic metabolic encephalopathy hypernatremia pseudomonas bacturia in patient with chronic metzger Comfort measures only Morphine as needed for dyspnea Ativan as needed for restlessness Support over to the family Patient will need overnight hospital stay to continue comfort measures. Quality Stroke Does the patient have a stroke diagnosis?: No VTE Prior VTE?: No VTE Risk Level:: Medical - moderate - high VTE Device Contraindication: Treatment Not Indicated VTE Drug Contraindication: N/A - Med Ordered
--- NOTE | 2021-11-03 15:29 | P.DS_ITS ---
DS: Providers Provider Date of Service: 11/03/21 Date of admission: 10/25/21 12:37 Primary care physician: Chase Stallworth MD Consults: 10/31/21 11:05 Consult to Pulmonology Routine Consulting Provider: Duran Durán Reason for consultation: copd, hypercapnea, hypoxia 11/01/21 08:59 Consult to Infectious Diseases Routine Consulting Provider: Jennifer Gamez Reason for consultation: Elevated WBCs, UTI Pseudomonas, Asp PNA ? for eval and rec DS: Diagnosis Discharge Diagnosis (1) Toxic metabolic encephalopathy: Status: Acute (2) Acute on chronic respiratory failure with hypoxia and hypercapnia: Status: Acute (3) Hypothermia: Status: Acute (4) Pneumonia: Status: Acute (5) Acute and chronic respiratory failure with hypoxia: Status: Acute DS: Summary Hospital Course Hospital Course: admission note HPI 81M with pmh including chronic hypoxic respiratory failure on 3 L home O2 due to history of COPD and chronic systolic CHF as well as recent diagnosis of squamous cell lung cancer, presented with shortness of breath.? Patient was residing at [facility] and was complaining of shortness of breath.? Was found to be severely hypoxic on his 3 L home O2 by paramedics patient was tachypneic and saturating 60% he was placed on a non-rebreather and saturation improved to 88%.? In ED chest x-ray showed bilateral pleural calcifications suspicious for asbestos exposure, small right pleural effusion and moderate right basilar atelectasis and/or consolidation.? White blood cell count was elevated at 19. patient initially placed on high flow oxygen, then transitioned to CPAP Hospital course The patient was admitted to the hospital with worsening shortness of breath . Found to have bilateral lung infiltrates more on the right side at time of presentation. Admitted for treatment of acute on chronic hypoxic hypercapnic respiratory failure secondary to COPD exacerbation and pneumonia. Evaluated by pulmonology team who recommended IV antibiotics and steroids. The patient general condition continue to deteriorate during the hospital stay requiring more oxygen supplement with altered mentation that developed and worsened. Found to be in hypercapnic respiratory failure placed on BiPAP with no s ignificant improvement in his mental status or vitals as he developed bradycardia, hypotension and hypothermia requiring Suma Hugger, IV fluids. His condition was discussed with his daughter, healthcare proxy who decided to give him a chins overnight on BiPAP to see if he were recover. By the next morning the patient did not improve and continued to deteriorate. 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 He was taken of the BiPAP machine in place stone nasal cannula with usage of morphine, Ativan as needed for restlessness and dyspnea. The patient in 11/03/2021 at 14:35. family was at the bedside, support offered. Time Spent with Patient Time attestation: Total time spent providing and/or coordinating discharge services: Discharge coordination time: Greater than 30 minutes Quality: Safe Use of Opioids Does Pt have an Active Cancer Diagnosis on the Problem List?: No Quality: Stroke Does the patient have a stroke diagnosis?: No Physical Exam Vital Signs: Vital Signs: Last Vital Signs Temp 99.1 F 11/02/21 20:00 Pulse 68 11/03/21 07:47 Resp 19 11/03/21 13:17 BP 84/58 L 11/03/21 07:47 Pulse Ox 82 L 11/03/21 07:47 O2 Del Method 11/03/21 07:47 O2 Flow Rate 100 11/02/21 20:00 FiO2 95 11/02/21 11:16 Oxygen Flow Rate 10 10/25/21 03:55 BMI result Body Mass Index 24.6 Const: Other: DS: Data Data Completed and Pending Labs on day of discharge: Laboratory Results - last 24 hr 11/02/21 11/02/21 11/02/21 17:15 18:05 20:45 O2 Saturation 99.0 ABG pH at Pt Temp 7.27 L ABG pCO2 at Pt Temp 70 H* ABG pO2 at Pt Temp 110 H ABG HCO3 32 H ABG Base Excess (Actual) 4.4 Sodium Potassium Chloride Carbon Dioxide Anion Gap BUN Creatinine Estim Creat Clear Calc Estimated GFR POC Glucose 159 H 145 H Random Glucose Calcium Magnesium Troponin I High Sens 11/02/21 11/02/21 11/03/21 23:53 23:53 07:24 O2 Saturation ABG pH at Pt Temp ABG pCO2 at Pt Temp ABG pO2 at Pt Temp ABG HCO3 ABG Base Excess (Actual) Sodium 145 Potassium 6.2 H* D Chloride 103 Carbon Dioxide 35 H Anion Gap 13 BUN 116 H Creatinine 3.32 H Estim Creat Clear Calc 18.0 Estimated GFR 18 POC Glucose 124 H Random Glucose 157 H Calcium 8.1 L Magnesium 2.6 Troponin I High Sens 80.3 H D Imaging Chest x-ray: Radiologist's impression: ITS Impressions Chest X-Ray 10/25/21 04:19 IMPRESSION: *Right pectoral tunneled internal jugular catheter terminating at the cavoatrial junction. *Small right pleural effusion and moderate right base atelectasis and/or consolidation. Findings could represent pneumonia. 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 Chest X-Ray 10/30/21 10:25 IMPRESSION: Worsening bilateral airspace opacities with increasing now moderate right pleural effusion with prominent, indistinct pulmonary vascularity. These findings could reflect worsening multifocal pneumonia although congestive heart failure could give a similar appearance. 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 Chest X-Ray 10/31/21 23:05 IMPRESSION: Chronic bilateral calcified pleural plaques. Similar moderate right pleural effusion with airspace opacity which could be atelectasis or pneumonia. Chest X-Ray 11/02/21 10:30 IMPRESSION: Overall, examination has not significantly changed when compared to 10/31/2021 with redemonstration of a moderate-sized right pleural effusion with associated right lung opacities. Background of multifocal calcified pleural plaques. Discharge Plan Discharge Date/Time: 11/03/21 14:35 Patient Disposition: Discharge Diagnosis: Referrals: Chase Stallworth MD [Primary Care Provider] - 1 Week Discharge Medications: No Action multivitamin Tablet 1 tab PO DAILY clonidine HCl 0.1 mg tablet 1 tab PO DAILY carvedilol 6.25 mg tablet 1 tab PO BID ondansetron HCl [Zofran] 4 mg Tablet 4 mg PO Q8H PRN (Reason: Nausea) isosorbide mononitrate 30 mg tablet extended release 24 hr 1 tab PO DAILY melatonin 3 mg Tablet 6 mg PO BEDTIME amlodipine 5 mg tablet 1 tab PO DAILY tamsulosin 0.4 mg Capsule 0.8 mg PO BEDTIME simvastatin 20 mg Tablet 20 mg PO BEDTIME furosemide 20 mg Tablet 20 mg PO DAILY insulin lispro [Humalog U-100 Insulin] 100 unit/mL Solution 1 sliding scale dose SUBCUT USEASDIRECTD Protocol: Insulin Correction Scale Less than or equal to 110 ---- Give (units): 0 111 to 150 Give (units): 0 151 to 200 Give (units): 2 201 to 250 Give (units): 4 251 to 300 Give (units): 6 301 to 350 Give (units): 8 Greater than 350 Give (units): 10 Call MD if Blood Glucose > : 350 albuterol sulfate 90 mcg/actuation HFA aerosol inhaler 1 puff inhalation Q4H PRN (Reason: Wheezing) omeprazole 20 mg Tablet,Delayed Release (Dr/Ec) 20 mg PO DAILY
== END 2021-11-03 18:00 | disposition expired | DRG 698 ==
LOC: HO.ED 06:09 → HO.EDOVER 12:44 → HO.S3 23:03 → HO.IMC 10-26 16:23
PROVIDERS: Hospitalist; Internal Medicine; Admitting Provider Internal Medicine; Emergency Provider Emergency Medicine Emergency Medical Services; PCP Family Medicine; Visit Provider Student in an Organized Health Care Education/Training Program
DX: T83.511A Infection and inflammatory reaction due to indwelling urethral catheter, initial encounter (principal); G92.8 Other toxic encephalopathy; I50.23 Acute on chronic systolic (congestive) heart failure; J18.9 Pneumonia, unspecified organism; J96.21 Acute and chronic respiratory failure with hypoxia; J15.9 Unspecified bacterial pneumonia; J96.22 Acute and chronic respiratory failure with hypercapnia; J44.1 Chronic obstructive pulmonary disease with (acute) exacerbation; I13.0 Hypertensive heart and chronic kidney disease with heart failure and stage 1 through stage 4 chronic kidney disease, or unspecified chronic kidney disease; N18.4 Chronic kidney disease, stage 4 (severe); J98.11 Atelectasis; C34.90 Malignant neoplasm of unspecified part of unspecified bronchus or lung; J44.0 Chronic obstructive pulmonary disease with (acute) lower respiratory infection; J91.8 Pleural effusion in other conditions classified elsewhere; E87.0 Hyperosmolality and hypernatremia; N39.0 Urinary tract infection, site not specified; M10.9 Gout, unspecified; N18.30 Chronic kidney disease, stage 3 unspecified; Z66 Do not resuscitate; Z20.822 Contact with and (suspected) exposure to COVID-19; I25.2 Old myocardial infarction; J92.0 Pleural plaque with presence of asbestos; R33.9 Retention of urine, unspecified; E78.5 Hyperlipidemia, unspecified; E11.22 Type 2 diabetes mellitus with diabetic chronic kidney disease; B96.5 Pseudomonas (aeruginosa) (mallei) (pseudomallei) as the cause of diseases classified elsewhere; R68.0 Hypothermia, not associated with low environmental temperature; I44.7 Left bundle-branch block, unspecified; D72.829 Elevated white blood cell count, unspecified; I25.10 Atherosclerotic heart disease of native coronary artery without angina pectoris; E87.6 Hypokalemia; Z51.5 Encounter for palliative care; E83.42 Hypomagnesemia; Z99.81 Dependence on supplemental oxygen; Z87.891 Personal history of nicotine dependence; Z79.4 Long term (current) use of insulin; Z79.899 Other long term (current) drug therapy
CPT/HCPCS: 36415; 36600; 71045; 80048; 80076; 81001; 82803; 82947; 83605; 83735; 83880; 84484; 85025; 85027; 87040; 87086; 87088; 87186; 87502; 87635; 93005; 94640; 94660; 96365; 96375; 99285; C1758; J0461; J0610; J0692; J0696; J1940; J2060; J2185; J2270; J2543; J2920; J3475

== ENCOUNTER 2021-10-30 05:00 | Outpatient (REF) | payer MEDICARE, SELFPAY | END 2021-10-30 05:01 | disposition home or self-care (01) | LOC: HO.MMNH1L 05:00 | PROVIDERS: Visit Provider Family Medicine | DX: Z13.89 Encounter for screening for other disorder (principal) ==